=== PATIENT | male | born 1945 | race Asian ===

== ENCOUNTER 2020-04-13 10:22 | Outpatient (REF) | payer MEDICARE, SELFPAY ==
--- NOTE | 2020-04-13 10:26 | US_ITS ---
EXAMINATION: US PELVIS LIMITED (BLADDER) CLINICAL INFORMATION: Unspecified urinary incontinence. COMPARISON: Ultrasound abdomen complete 08/28/2016. TECHNIQUE: Real-time imaging of the bladder. FINDINGS: The bladder is distended symmetrically and shows no focal wall thickening, diverticulum, or bladder calculus. Prevoid bladder volume: 774 mL. Post void bladder residual volume: 179 mL. Prostate measures 3.7 x 4.1 x 5.1 cm, volume 40 mL. US/US bladder IMPRESSION: Large post void bladder residual volume 179 mL.
== END 2020-04-13 10:23 | disposition home or self-care (01) ==
LOC: HO.HMGCX 10:22
PROVIDERS: PCP Internal Medicine; Visit Provider Internal Medicine
DX: R32 Unspecified urinary incontinence (principal)
CPT/HCPCS: 76857

== ENCOUNTER 2020-05-10 14:17 | Outpatient (REF) | payer MEDICARE, SELFPAY ==
--- NOTE | 2020-05-10 14:28 | XR_ITS ---
EXAMINATION: AP BILATERAL KNEE. RIGHT KNEE 2 VIEWS. CLINICAL INFORMATION: Pain right knee. COMPARISON: None TECHNIQUE: AP bilateral knees standing. Right knee 2 views. FINDINGS: AP BILATERAL KNEE: There is loss of medial compartment joint space both knees. No periarticular spurring. No loose bodies. The soft tissues are normal. RIGHT KNEE: There is mild loss of patellofemoral compartment joint space with periarticular spurring and mild suprapatellar joint effusion. Small enthesophyte is seen along the anterior superior patella. No visible acute fracture or dislocation. XR/XR knee standing BI IMPRESSION: 1. Degenerative changes medial and patellofemoral compartment right knee and medial compartment left knee. 2. There is mild suprapatellar joint effusion right knee.
--- NOTE | 2020-05-10 14:28 | XR_ITS ---
EXAMINATION: AP BILATERAL KNEE. RIGHT KNEE 2 VIEWS. CLINICAL INFORMATION: Pain right knee. COMPARISON: None TECHNIQUE: AP bilateral knees standing. Right knee 2 views. FINDINGS: AP BILATERAL KNEE: There is loss of medial compartment joint space both knees. No periarticular spurring. No loose bodies. The soft tissues are normal. RIGHT KNEE: There is mild loss of patellofemoral compartment joint space with periarticular spurring and mild suprapatellar joint effusion. Small enthesophyte is seen along the anterior superior patella. No visible acute fracture or dislocation. XR/XR knee RT 2V IMPRESSION: 1. Degenerative changes medial and patellofemoral compartment right knee and medial compartment left knee. 2. There is mild suprapatellar joint effusion right knee.
== END 2020-05-10 14:18 | disposition home or self-care (01) ==
LOC: HO.HOSX 14:17
PROVIDERS: Visit Provider Orthopaedic Surgery
DX: M17.11 Unilateral primary osteoarthritis, right knee (principal); M25.562 Pain in left knee
CPT/HCPCS: 20610; 73560; 73565; J1040; Q3014

== ENCOUNTER → 2020-06-14 09:21 | Outpatient (BNVA) | payer MEDICARE, SELFPAY | PROVIDERS: PCP Internal Medicine; Referring Provider Internal Medicine; Visit Provider Urology | DX: N40.1 Benign prostatic hyperplasia with lower urinary tract symptoms (principal); R33.9 Retention of urine, unspecified; R39.15 Urgency of urination | CPT/HCPCS: 51798; 81002; 99202 ==

== ENCOUNTER 2020-07-12 | Outpatient (REF) | payer MEDICARE, SELFPAY | END 2020-07-12 00:01 | disposition home or self-care (01) | LOC: HO.VC | PROVIDERS: Visit Provider Internal Medicine | DX: Z23 Encounter for immunization (principal) | CPT/HCPCS: 0011A ==

== ENCOUNTER 2020-08-08 | Outpatient (REF) | payer MEDICARE, SELFPAY | END 2020-08-08 00:01 | disposition home or self-care (01) | LOC: HO.VC | PROVIDERS: Visit Provider Internal Medicine | DX: Z23 Encounter for immunization (principal) | CPT/HCPCS: 0012A ==

== ENCOUNTER → 2020-08-30 10:41 | Outpatient (BNVA) | payer MEDICARE, SELFPAY | PROVIDERS: PCP Internal Medicine; Visit Provider Orthopaedic Surgery | DX: M75.40 Impingement syndrome of unspecified shoulder (principal) | CPT/HCPCS: 20610; 99212; J1040 ==

== ENCOUNTER 2020-10-04 09:49 | Outpatient (REF) | payer MEDICARE, SELFPAY ==
--- NOTE | ~2020-10-04 | XR_ITS ---
EXAMINATION: XR SHOULDER, RIGHT CLINICAL INFORMATION: Pain COMPARISON: Previous x-ray February 2016 TECHNIQUE: Three views of the right shoulder. FINDINGS: Bone alignment is normal. No fracture or dislocation is seen. The glenohumeral joint is normal. There is arthritis at the acromioclavicular joint. Soft tissues are normal. XR/XR shoulder RT min 2V IMPRESSION: Arthritis at the acromioclavicular joint.
== END 2020-10-04 09:50 | disposition home or self-care (01) ==
LOC: HO.HOSX 09:49
PROVIDERS: PCP Internal Medicine; Visit Provider Orthopaedic Surgery
DX: M25.511 Pain in right shoulder (principal); M75.41 Impingement syndrome of right shoulder
CPT/HCPCS: 20610; 73030; 99212; J1040

== ENCOUNTER 2020-10-27 10:00 | Outpatient (RCR) | payer MEDICARE, SELFPAY ==
--- NOTE | 2020-10-20 12:06 | MHC.PT.EP ---
[facility] [place] [facility] [place] [facility] [place] [facility] [address] Steven Babcock [address] [phone] F: [phone] F: [phone] F: [phone] F: [phone] Physical Therapy Plan of Care Date of Evaluation: Date of Surgery: Diagnosis: impingement syndrome of R shoulder Assessment: 75 y/o RHD male referred to PT with impingement syndrome of R shoulder. He had a R RTC repair 08/2018 and began having R shoulder pain for one year. S/s consistent with impingement resulting in pain and difficulty with reaching overhead, reaching behind back, sleeping, and playing golf. Examination shows decreased R shoulder AROM, decreased R scapular and RTC strength, decreased GH capsular mobility, and increased tissue tension. He would like to come 1x/week for 2-3 weeks to create HEP as he has a high co-pay. He would benefit from PT to address impairments, implement HEP, and optimize functional mobility. Frequency and Duration: The patient will be seen 1x/week for 3 weeks Short Term Goals: 1 week 1. I with HEP [facility] Goals: 3 weeks 1. I with HEP and self management of sx 2. Demonstrate APley IR to T12 3. Pt will sleep through 75% of the night wiht pain < 2/10 Treatment Plan: Modalities to reduce pain, spasms and effusion. Manual therapy to restore motion and function. Therapeutic exercise to improve strength and flexibility. Neuromuscular re-education for posture and balance. Therapeutic activities to return to functional activities of daily living. Electronically signed by: Sunni Minor PT Please sign and return to therapist. Thank you for your referral.
--- NOTE | 2020-11-30 15:20 | MHC.PT.DC ---
[facility] [place] [facility] [place] [facility] [place] [facility] [address] Steven Babcock [address] [phone] F: [phone] F: [phone] F: [phone] F: [phone] Physical Therapy Discharge Report Diagnosis: impingement syndrome of R shoulder Date of Surgery: Date of Evaluation: 10/20/20 Date of Discharge: 11/30/20 Treatments to Date: 2 Cancellations to Date: 0 No Shows to Date: 0 Discharge Status: Independent with HEP Discharge Summary: From last attended visit: Mild soreness with behind the back IR stretch so educated pt regarding stretch pain verse sharp pain for hEP. He performed all exercises with minimal-no compensation and he would like to trial HEP without a f/u visit. States if he has questions, he will call or make a f/u appointment. IF we do not hear from him in 30 days, will d/c the chart. Pt in agreement. He did not f/u with further visits and therefore d/c. Electronically signed by: Sunni Minor PT Please sign and return to therapist. Thank you for your referral.
== END 2020-11-30 15:20 | disposition home or self-care (01) ==
LOC: HO.PTCHIC 10:00
PROVIDERS: PCP Internal Medicine; Visit Provider Orthopaedic Surgery
DX: M75.41 Impingement syndrome of right shoulder (principal)
CPT/HCPCS: 97110; 97161

== ENCOUNTER → 2020-11-15 10:44 | Outpatient (BNVA) | payer MEDICARE, SELFPAY | PROVIDERS: Visit Provider Orthopaedic Surgery | DX: M25.511 Pain in right shoulder (principal) | CPT/HCPCS: 99212; J1040 ==

== ENCOUNTER 2020-11-28 06:42 | Outpatient (REF) | payer MEDICARE, SELFPAY ==
[2020-11-28 11:29] LABS: MANUAL DIFF FLAG NO
[2020-11-28 11:42] LABS: Basophils Percent Auto 0.4 % (0-2); Eosinophils Absolute Auto 0.3 X10*3/uL (0.0-0.4); Eosinophils Percent Auto 4.5 % (0-4); Hematocrit 43.1 % (42-52); Hemoglobin 14.2 g/dl (14.0-18.0); Imm Gran Abs Auto 0.03 X10*3/uL (0.00-0.03); Imm Gran Pct Auto 0.4 % (0.0-0.4); Lymphocytes Absolute Auto 1.4 X10*3/uL (1.2-4.9); Lymphocytes Percent Auto 18.7 % (20-40); Mean Corpuscular HGB Conc 32.9 g/dl (31.0-36.0); Mean Corpuscular Hemoglobin 30.3 pg (27.0-33.0); Mean Corpuscular Volume 92.1 fL (80-98); Mean Platelet Volume 10.1 fL (9.4-12.4); Monocytes Absolute Auto 0.7 X10*3/uL (0.1-1.2); Monocytes Percent Auto 9.2 % (2-11); Neutrophils Absolute Auto 4.9 X10*3/uL (2.0-8.3); Neutrophils Percent Auto 66.8 % (45-73); Platelet Count 250 X10*3/uL (160-400); Red Blood Count 4.68 X10*6/uL (4.60-5.80); Red Cell Distribution Width 13.2 % (11.0-16.0); White Blood Count 7.4 X10*3/uL (4.8-10.8)
[2020-11-28 11:53] LABS: Estimated Average Glucose 148 mg/dL; Hemoglobin A1c % 6.8 %
[2020-11-28 12:05] LABS: B Type Natriuretic Peptide 16 pg/mL (<100)
[2020-11-28 12:08] LABS: Alanine Aminotransferase 77 U/L (0-40); Albumin Level 4.3 g/dL (3.5-5.0); Alkaline Phosphatase 90 U/L (39-117); Anion Gap 15 (12-20); Aspartate Amino Transferase 37 U/L (5-37); Bilirubin Total 0.5 mg/dL (0.0-1.0); Blood Urea Nitrogen 23 mg/dL (9-16); Calcium 9.6 mg/dL (8.4-10.2); Carbon Dioxide 29 mmol/L (22-29); Chloride 104 mmol/L (96-108); Cholesterol 100 mg/dL; Estimated Glomerular Filt Rate > 60; Glucose Random 153 mg/dL (60-115); HDL Cholesterol 38 mg/dL; LDL Cholesterol Calculated 47 mg/dl; Potassium 4.8 mmol/L (3.3-5.1); Sodium 143 mmol/L (135-145); Total Protein 6.6 g/dL (6.5-8.0); Triglycerides 75 mg/dL
[2020-11-28 12:14] LABS: Thyroid Stimulating Hormone 0.57 uIU/mL (0.32-4.0)
[2020-11-28 12:18] LABS: Creatinine Urine 246.01 mg/dL
[2020-11-28 12:18] LABS: Prostate Specific Antigen 2.28 ng/mL (<0.05-4.0)
[2020-11-28 12:19] LABS: Creatinine Urine 246.24 mg/dL; Microalbum/Creatinine Ratio Ur 9.7 ug/mg cr
[2020-11-28 13:42] LABS: Folate > 20.0 ng/mL (> or = 4.0); Vitamin B12 307 pg/mL (200-900)
== END 2020-11-28 06:43 | disposition home or self-care (01) ==
LOC: HO.HMGCLDS 06:42
PROVIDERS: Urology; PCP Internal Medicine; Visit Provider Internal Medicine
DX: I25.10 Atherosclerotic heart disease of native coronary artery without angina pectoris (principal); E11.65 Type 2 diabetes mellitus with hyperglycemia; E78.00 Pure hypercholesterolemia, unspecified; N40.1 Benign prostatic hyperplasia with lower urinary tract symptoms; R33.8 Other retention of urine; Z12.5 Encounter for screening for malignant neoplasm of prostate
CPT/HCPCS: 36415; 80053; 80061; 82043; 82607; 82746; 83036; 83880; 84153; 84439; 84443; 85025

== ENCOUNTER → 2020-12-19 13:23 | Outpatient (REF) | payer MEDICARE, SELFPAY ==
--- NOTE | 2020-12-19 13:48 | ECG_ITS ---
Hook-up date: 2020-12-19 13:42:00 Duration: 24:16:00 Test Indications: BRADYCARDIA Medications: 98642 QRS complexes 1310 Ventricular ectopics which represent 1 % of total QRS comp. 8 Supraventricular ectopics which represent <1 % of total QRS comp. * Paced QRS complexs which represent % of total QRS comp. VENTRICULAR ECTOPY 1237 Isolated 62 Bigeminal Cycles 33 Couplets 2 Runs 7 Beats in Runs 4 Beats LONGEST at 141 BPM at 11:05:29 2020-12-20 4 Beats FASTEST at 141 BPM at 11:05:29 2020-12-20 SUPRAVENTRICULAR ECTOPY 8 Isolated 0 Couplets 0 Runs 0 Beats in Runs * Beats LONGEST at * BPM at :: -- * Beats FASTEST at * BPM at :: -- HEART RATES 42 MIN at 00:29:45 2020-12-20 63 AVG 122 MAX at 11:28:11 2020-12-20 LONGEST RR 1.6880 secs at 05:33:18 2020-12-20 S-T LEVELS Channel 1 - 128 mm at 13:42:00 2020-12-19 - 128 mm at 13:42:00 2020-12-19 Channel 2 - 128 mm at 13:42:00 2020-12-19 - 128 mm at 13:42:00 2020-12-19 Channel 3 - 128 mm at 03:30:11 -- - 128 mm at 03:30:11 Underlying rhythm is sinus; Average ventricular rate 63/min; range 42-122/min; About 45% of the time, ventricular rate <60/min; Frequent Premature ventricular complexes (1% burden); mostly isolated; some couplets; bigeminy; runs upto 4 beats; mostly unifocal, but some variable polarity; No sustained arrhythmias; Lightheadedness in patient diary associated with sinus rhythm. Referred By: Mack Wade Overread By: PHILLIP BORDEN
== END ==
LOC: HO.CARD 13:23
PROVIDERS: PCP Internal Medicine; Visit Provider Internal Medicine
DX: R00.1 Bradycardia, unspecified (principal)
CPT/HCPCS: 93225; 93226

== ENCOUNTER → 2021-01-18 11:08 | Outpatient (BNVA) | payer MEDICARE, SELFPAY | PROVIDERS: PCP Internal Medicine; Visit Provider Urology | DX: N40.1 Benign prostatic hyperplasia with lower urinary tract symptoms (principal); R33.9 Retention of urine, unspecified; R39.15 Urgency of urination | CPT/HCPCS: 51798; 99212 ==

== ENCOUNTER 2021-05-21 09:26 | Emergency (ER) | payer MEDICARE, SELFPAY ==
--- NOTE | ~2021-05-21 | XR_ITS ---
EXAMINATION: XR CHEST CLINICAL INFORMATION: Cough COMPARISON: 08/17/2018 TECHNIQUE: Frontal view of the chest was obtained. FINDINGS: Low lung volumes. No focal consolidation or mass. Normal pulmonary vascularity. No pleural effusion or pneumothorax. Normal heart size. No acute osseous abnormality. XR/XR chest 1V IMPRESSION: Low lung volumes but no acute pulmonary disease. No significant change from prior study.
[2021-05-21 10:01] LABS: COVID-19 Test Negative (Negative); IDNOW Serial# 9DD0AD1C
[2021-05-21 11:01] VITALS: BP 140/93; PULSE 87; RESP 18; TEMP 36.7; O2SAT 98
--- NOTE | 2021-05-21 11:26 | ED_ITS ---
HPI - URI/Sore Throat General Chief Complaint: Upper Respiratory Symptoms Stated Complaint: cold/flu like symptoms, heavy cough, sob Time Seen by Provider: 05/21/21 11:13 Source: patient and family Mode of arrival: ambulatory Limitations: no limitations History of Present Illness HPI Narrative: 75-year-old male with history of asthma, osteoarthritis, BPH, hypertension, hyperlipidemia, GERD, [id number] diabetes here with reports of dry cough over the last 3 weeks worsened at nighttime. Patient is the last 3 days the cough has been worsened and keeping him from sleeping. He denies any associated shortness of breath or chest pain or leg swelling or pain. He is not on any Damion inhibitors. No fevers, chills. Patient has fully vaccinated for COVID as well as receiving a booster. Trying Robitussin cough medicine with continued symptoms Related Data Home Medications Medication Instructions Recorded Confirmed ascorbic acid (vitamin C) 500 mg mg PO 03/31/20 04/02/21 capsule cholecalciferol (vitamin D3) 25 25 mcg PO DAILY 03/31/20 04/02/21 mcg (1,000 unit) capsule multivitamin 1 tab PO DAILY 03/31/20 04/02/21 Previous Rx's Medication Instructions Recorded atorvastatin 10 mg tablet 10 mg PO DAILY #90 cap 08/22/20 diclofenac sodium 75 mg 75 mg PO BID PRN 90 Days #180 cap 11/30/20 tablet,delayed release aspirin 81 mg tablet,delayed 81 mg PO DAILY #30 tab 12/06/20 release (Adult Aspirin Regimen) metformin 500 mg tablet 500 mg .ROUTE BID 90 Days #180 tab 01/18/21 albuterol sulfate 90 mcg/actuation 2 puff INHALATION Q4-6H PRN #8.5 g 03/07/21 aerosol inhaler (ProAir HFA) tamsulosin 0.4 mg capsule 0.4 mg PO DAILY #90 cap 04/05/21 metoprolol tartrate 25 mg tablet 12.5 mg PO BID 90 Days #90 tab 04/27/21 azithromycin 250 mg tablet See Rx Instructions .ROUTE 05/21/21 .COMPLEX #6 tab hydrocodone-homatropine 5 mg-1.5 5 ml PO Q4H PRN #60 ml 05/21/21 mg/5 mL (5 mL) oral syrup (Hycodan) prednisone 20 mg tablet 40 mg PO DAILY #10 tab 05/21/21 Allergies Allergy/AdvReac Type Severity Reaction Status Date / Time lisinopril Allergy Mild cough Verified 05/21/21 11:01 losartan AdvReac Intermediate Cough Verified 05/21/21 11:01 Review of Systems Review of Systems: Yes all other systems are reviewed and are negative Constitutional: Constitutional: Reports no additional constitutional complaints, Denies body ache(s), Denies chills, Denies fever(s), Denies headache(s) and Denies weakness Eyes: Eyes: Reports no additional eye complaints and Denies change in vision ENT: Reports system reviewed and no additional complaints, except as documented, Denies dizziness, Denies headache(s), Denies nasal congestion, Denies nasal discharge and Denies neck pain Cardiovascular: Cardiovascular: Reports no additional cardiovascular complaints, Denies chest pain, Denies leg edema and Denies dyspnea Respiratory: Respiratory: Reports no additional respiratory complaints, Reports cough and Denies dyspnea Gastrointestinal: Gastrointestinal: Reports no additional gastrointestinal complaints, Denies abdominal pain, Denies diarrhea, Denies nausea and Denies vomiting Genitourinary: Genitourinary: Denies urinary incontinence Musculoskeletal: Musculoskeletal: Reports no additional musculoskeletal complaints, Denies back pain, Denies arthralgias, Denies joint swelling, Denies neck pain, Denies numbness and Denies tingling Integumentary/Breasts: Skin/Breast: Reports system reviewed and no additional complaints, except as docu and Denies rash Neurologic: Reports system reviewed and no additional complaints, except as documented, Denies Abnormal speech present, Denies dizziness, Denies headache(s), Denies numbness, Denies tingling and Denies weakness [facility] Past Medical History Attestation statement: The following information was validated with the patient. Source: old records reviewed and nursing notes reviewed Medical History Asthma Coronary artery disease Essential tremor Fatty liver GERD (gastroesophageal reflux disease) Hypercholesterolemia Hypertension Pulmonary nodule, right Type 2 diabetes mellitus with hyperglycemia Urinary incontinence Surgical History Carpal tunnel syndrome Hx of rotator cuff surgery Family History Family History Father Pancreatic cancer Mother No problems noted. Maternal Aunt Cancer Brother Cancer Social History Social History Housing: House Alcohol intake: current Patient Tobacco Use Status: Former Tobacco user Tobacco use type: Cigarette Years Smoked: quit 1979 e-Cigarette/Vaping Use: Never Used Second Hand Smoke Exposure: No Advance Directives: No Advance Directives Information Provided: No service: Yes Current occupational status: retired Current occupation: Right Handed Physical Exam Vital Signs: Vital Signs: Last Vital Signs Temp 98.1 F 05/21/21 11:01 Pulse 87 05/21/21 11:01 Resp 18 05/21/21 11:01 BP 140/93 H 05/21/21 11:01 Pulse Ox 98 05/21/21 11:01 BMI result Body Mass Index 0.3 Const: General: cooperative, healthy appearing, comfortable and no acute distress Orientation/consciousness: patient oriented x3 Limitations: no limitations HENMT: Head: Yes normal to inspection Ears: hearing grossly normal bilaterally General nose exam: Normal external nose present Face and sinus: Yes normal facial exam Mouth: Normal oral and palatal mucosa present Throat: Yes posterior oropharynx normal Eyes: General: appearance normal, both eyes and all related structures Pupils: Equal, round and reactive pupils present Neck: Neck: Yes normal visual inspection Chest: Chest palpation & inspection: normal inspection of the chest Resp: Effort & Inspection: normal respiratory effort Auscultation: clear to auscultation bilaterally Cardio: Rate: regular rate Rhythm: regular rhythm Peripheral pulses: Peripheral pulses 2+ throughout GI: Inspection: Yes normal to inspection Palpation (GI): Soft to palpation and nontender Auscultation: normal bowel sounds Back/Spine/Pelvis: Thoracic/Lumbar Spine: thoracic and lumbar spine normal to inspection Skin: General skin exam: no rashes or lesions noted Neuro: General: patient oriented x3, no focal motor deficits and normal sensation to monofilament Cranial nerves: Yes Equal, round and reactive pupils present Cognition (Neuro): normal cognition Speech: No Abnormal speech present Gait exam (Neuro): Normal gait present Motor exam (neuro): 5/5 motor strength present throughout Extrem: General: Yes normal to inspection, Yes no pedal edema and Yes no calf tenderness Course Course Course Narrative: 75-year-old male with a history of asthma . Reports dry cough for several weeks unrelieved with [id number] medications. No associated chest pain, shortness of breath, fevers or chills. Patient initially did have some runny nose and sore throat but that such resolved. His COVID screen today is negative. His chest x-ray shows no acute finding. I will send a respiratory panel on him. will call patient with results. his vitals are stable. His exam is benign. He is quite frustrated by this chronic cough that he has had and he is using his inhaler and cough medication with no relief. ? bronchiti vs asthma flare. Will treat with five days Of azithromycin and prednisone. Will give cough suppressant for home. Reviewed worrisome signs and symptoms and when to return to the emergency department. Comfortable discharge home. MDM - URI/Sore Throat Medical Records Attestation: I reviewed the patient's medical records. Lab Data Attestation: I reviewed the patient's lab results. Labs: Lab Results 05/21/21 Range/Units 09:38 COVID-19 ([facility]EREK) Negative (Negative) COVID-19 Clin Com See Note Imaging Data Chest x-ray: Attestation: I personally reviewed and interpreted this imaging study as follows: Radiologist's impression: [address] [address] XRay Report Signed Patient: Bobby Damon MR#: [id number] : 1945 Acct:[id number] Age/Sex: 75 / M ADM Date: 05/21/21 Loc: .ED Attending Dr: Ordering Physician: Isa Stuart MD Date of Service: 05/21/21 Procedure(s): XR chest 1V Accession Number(s): [id number] cc: Isa Stuart MD~ EXAMINATION: XR CHEST CLINICAL INFORMATION: Cough COMPARISON: 08/17/2018 TECHNIQUE: Frontal view of the chest was obtained. FINDINGS: Low lung volumes. No focal consolidation or mass. Normal pulmonary vascularity. No pleural effusion or pneumothorax.? Normal heart size. No acute osseous abnormality. XR/XR chest 1V IMPRESSION: Low lung volumes but no acute pulmonary disease. No significant change from prior study. Discharge Plan Discharge Clinical Impression: Acute bronchitis Patient Disposition: Home, Self-Care Instructions: Acute Bronchitis (ED) Additional Instructions: Continue inhaler Start prednisone and antibiotic today for a total of five days Cough medication as needed Follow with your PCP Your chest x-ray and covid screen. I will call you with the respiratory panel swab this afternoon Prescriptions: New azithromycin 250 mg tablet See Rx Instructions .ROUTE .COMPLEX Qty: 6 RF: 0 prednisone 20 mg tablet 40 mg PO DAILY Qty: 10 RF: 0 hydrocodone-homatropine [Hycodan] 5-1.5 mg/5 mL (5 mL) syrup 5 ml PO Q4H PRN (Reason: cough) Qty: 60 RF: 0 No Action atorvastatin 10 mg tablet 10 mg PO DAILY Qty: 90 RF: 3 diclofenac sodium 75 mg tablet,delayed release (DR/EC) 75 mg PO BID PRN (Reason: pain) 90 Days Qty: 180 RF: 3 metformin 500 mg tablet 500 mg .ROUTE BID 90 Days Qty: 180 RF: 3 albuterol sulfate [ProAir HFA] 90 mcg/actuation HFA aerosol inhaler 2 puff inhalation Q4-6H PRN (Reason: bronchospasm) Qty: 8.5 RF: 0 tamsulosin 0.4 mg capsule 0.4 mg PO DAILY Qty: 90 RF: 2 metoprolol tartrate 25 mg tablet 12.5 mg PO BID 90 Days Qty: 90 RF: 3 multivitamin Tablet 1 tab PO DAILY RF: 0 cholecalciferol (vitamin D3) 25 mcg (1,000 unit) capsule 25 mcg PO DAILY RF: 0 ascorbic acid (vitamin C) 500 mg capsule PO RF: 0 aspirin [Adult Aspirin Regimen] 81 mg tablet,delayed release (DR/EC) 81 mg PO DAILY Qty: 30 RF: 0 Referrals: Po,Mack Kenney MD [Primary Care Provider] - 2 days Interventions: ED Discharge Assessment Last Done: 05/21/21 12:02 Discharge Date/Time: 05/21/21 12:02
[2021-05-21 11:55] LABS: Adenovirus PCR Not Detected (Not Detect.); Bordetella parapertussis PCR Not Detected (Not Detect.); Bordetella pertussis PCR Not Detected (Not Detect.); Chlamydia pneumoniae PCR Not Detected (Not Detect.); Coronavirus 229E PCR Not Detected (Not Detect.); Coronavirus HKU1 PCR Not Detected (Not Detect.); Coronavirus NL63 PCR Not Detected (Not Detect.); Coronavirus OC43 PCR Not Detected (Not Detect.); Human metapneumovirus PCR Not Detected (Not Detect.); Influenza B PCR Not Detected (Not Detect.); Mycoplasma pneumoniae PCR Not Detected (Not Detect.); Parainfluenza 1 PCR Not Detected (Not Detect.); Parainfluenza 2 PCR Not Detected (Not Detect.); Parainfluenza 3 PCR Not Detected (Not Detect.); Parainfluenza 4 PCR Not Detected (Not Detect.); RSV PCR Not Detected (Not Detect.); Rhino/Enterovirus PCR Not Detected (Not Detect.); SARS-CoV-2 PCR Not Detected (Not Detect.)
[2021-05-21 13:12] LABS: Influenza A PCR Detected (Not Detect.)
== END 2021-05-21 12:02 | disposition home or self-care (01) ==
PROVIDERS: Nurse Practitioner Family; Emergency Provider Emergency Medicine; PCP Internal Medicine
DX: J20.9 Acute bronchitis, unspecified (principal); J10.1 Influenza due to other identified influenza virus with other respiratory manifestations; J45.909 Unspecified asthma, uncomplicated; I10 Essential (primary) hypertension; I25.10 Atherosclerotic heart disease of native coronary artery without angina pectoris; E11.9 Type 2 diabetes mellitus without complications; Z20.822 Contact with and (suspected) exposure to COVID-19
CPT/HCPCS: 36415; 71045; 87633; 87635; 99283; 99284

== ENCOUNTER 2021-07-04 07:51 | Outpatient (REF) | payer MEDICARE, SELFPAY ==
--- NOTE | ~2021-07-04 | US_ITS ---
EXAMINATION: ULTRASOUND PELVIS AND ULTRASOUND SCROTUM. CLINICAL INFORMATION: Right testicular pain. COMPARISON: None TECHNIQUE: Scrotum and right groin was performed FINDINGS: Right groin: Imaging to the right groin reveals no evidence of hernia, mass or abnormal lymph nodes. Scrotum: The right testes measures 3.96 x 2.11 x 2.98 cm and volume 13.0 cm. There is normal homogeneous echotexture with normal arterial and venous flow seen on Doppler exam. There is a small right hydrocele and a small varicocele. The right epididymis is normal. There is normal vascular flow seen. The left testes measures 4.09 x 1.90 2.97 cm and volume 12.1 cm. Left testes are homogeneous in echotexture. There is normal arterial and venous flow seen to left SC on Doppler exam.. There is a small left hydrocele and a prominent left varicocele. The left epididymis is normal. There are small epididymal head cyst measuring 0.83 x 0.37 x 0.39 cm and appears septated. US/US pelvic complete IMPRESSION: Bilateral hydroceles and varicoceles prominent on the left side. Left epididymal septated cyst. The testes are unremarkable with normal vascular flow. No abnormality seen in the right groin especially no hernia or lymph nodes.
--- NOTE | ~2021-07-04 | US_ITS ---
EXAMINATION: ULTRASOUND PELVIS AND ULTRASOUND SCROTUM. CLINICAL INFORMATION: Right testicular pain. COMPARISON: None TECHNIQUE: Scrotum and right groin was performed FINDINGS: Right groin: Imaging to the right groin reveals no evidence of hernia, mass or abnormal lymph nodes. Scrotum: The right testes measures 3.96 x 2.11 x 2.98 cm and volume 13.0 cm. There is normal homogeneous echotexture with normal arterial and venous flow seen on Doppler exam. There is a small right hydrocele and a small varicocele. The right epididymis is normal. There is normal vascular flow seen. The left testes measures 4.09 x 1.90 2.97 cm and volume 12.1 cm. Left testes are homogeneous in echotexture. There is normal arterial and venous flow seen to left SC on Doppler exam.. There is a small left hydrocele and a prominent left varicocele. The left epididymis is normal. There are small epididymal head cyst measuring 0.83 x 0.37 x 0.39 cm and appears septated. US/US scrotum IMPRESSION: Bilateral hydroceles and varicoceles prominent on the left side. Left epididymal septated cyst. The testes are unremarkable with normal vascular flow. No abnormality seen in the right groin especially no hernia or lymph nodes.
== END 2021-07-04 07:52 | disposition home or self-care (01) ==
LOC: HO.US 07:51
PROVIDERS: PCP Internal Medicine; Visit Provider Nurse Practitioner Family
DX: R10.31 Right lower quadrant pain (principal); N50.811 Right testicular pain; N43.3 Hydrocele, unspecified; I86.1 Scrotal varices; N50.3 Cyst of epididymis
CPT/HCPCS: 76856; 76870

== ENCOUNTER 2021-07-14 13:17 | Outpatient (REF) | payer MEDICARE, SELFPAY | END 2021-07-14 13:18 | disposition home or self-care (01) | LOC: HO.LNP 13:17 | PROVIDERS: Visit Provider Physician Assistant | DX: T14.8XXA Other injury of unspecified body region, initial encounter (principal); X58.XXXA Exposure to other specified factors, initial encounter; Y93.9 Activity, unspecified; Y92.9 Unspecified place or not applicable; Y99.8 Other external cause status | CPT/HCPCS: 87071; 87205 ==

== ENCOUNTER 2021-07-19 10:23 | Emergency (ER) | payer MEDICARE, SELFPAY ==
--- NOTE | ~2021-07-19 | XR_ITS ---
EXAMINATION: XR CHEST CLINICAL INFORMATION: Shortness of breath COMPARISON: May 21, 2021 TECHNIQUE: AP portable view of the chest was obtained. FINDINGS: No significant abnormality is noted involving the heart, lungs, mediastinum, bony thorax or soft tissues. Patient appears be status post distal right clavicle surgery. XR/XR chest 1V IMPRESSION: No acute parenchymal disease.
--- NOTE | ~2021-07-19 | CT_ITS ---
EXAMINATION: CT ANGIOGRAM OF THE CHEST WITH AND WITHOUT CONTRAST (CT PULMONARY ANGIOGRAM FOR PE) CLINICAL INFORMATION: Reason for Exam sob COMPARISON: CT of the chest of June 13, 2008 TECHNIQUE: Prior to contrast administration, noncontrast localization images were obtained. Subsequently, multidetector volumetric imaging was performed from the thoracic inlet to below the diaphragms following the administration of 65 mL Omnipaque 350 intravenous contrast. No contrast reaction reported Sagittal, coronal, and MIP oblique sagittal reformatted images were obtained on the CT workstation, uploaded to PACS, and reviewed. This CT examination was performed using dose optimization techniques as appropriate, variously including the following: *Automated exposure control *Adjustment of mA and/or kV according to patient size (this includes techniques or standardized protocols for targeted exams where dose is matched to indication/reason for exam; i.e. extremities or head) *Use of iterative reconstruction technique Total exam dose-length product 354 mGy-cm FINDINGS: QUALITY OF STUDY/CONTRAST BOLUS: Satisfactory. PULMONARY ARTERIES: No central or segmental pulmonary emboli. THORACIC AORTA: No aneurysm or dissection. LUNG: Central airways are patent. No bronchial wall thickening. No bronchiectasis. No confluent parenchymal disease. PLEURA: No pleural effusion or pneumothorax. MEDIASTINUM: Normal heart size. No pericardial effusion. No hilar or mediastinal lymphadenopathy. No evidence of septal bowing or right heart strain. There is nodularity to the inferior aspect of the thyroid gland. CHEST WALL/AXILLA: No axillary or internal mammary lymphadenopathy. OSSEOUS STRUCTURES: No acute or suspicious osseous abnormality. Old right sided healed rib fracture. DISH present. UPPER ABDOMEN: Unremarkable. No reflux of contrast into the hepatic veins to suggest elevated right heart pressures. CT/CT angio chest PE protocol IMPRESSION: No evidence of acute pulmonary artery embolus. No evidence of thoracic aortic aneurysm or dissection. Probable thyroid gland nodules. VTE: negative
[2021-07-19 10:49] VITALS: BP 111/70; PULSE 120; RESP 18; TEMP 38.7; O2SAT 93; BMI 28.9
[2021-07-19 11:09] VITALS: BP 119/79; PULSE 120; RESP 24; O2SAT 94
--- NOTE | 2021-07-19 11:12 | ED_ITS ---
HPI - URI/Sore Throat General Chief Complaint: Upper Respiratory Symptoms Stated Complaint: multiple issues Time Seen by Provider: 07/19/21 11:03 History of Present Illness HPI Narrative: Patient is a 76-year-old male with a history of bronchitis that is been ongoing for last 2 months. Positive fever positive generalized malaise positive shortness of breath. Worsen with ambulation. Patient had a full course of antibiotics in May also another course of anti biotic approximately 1 week ago. Took about 5 days with it. Still feeling short of breath. Positive fever no travel history. No abdominal pain or nausea no vomiting or diarrhea positive decreased appetite. Patient received his full course of coronavirus vaccine. Had a booster. Patient from home. Related Data Home Medications Medication Instructions Recorded Confirmed ascorbic acid (vitamin C) 500 mg mg PO 03/31/20 07/14/21 capsule cholecalciferol (vitamin D3) 25 25 mcg PO DAILY 03/31/20 07/14/21 mcg (1,000 unit) capsule multivitamin 1 tab PO DAILY 03/31/20 07/14/21 Previous Rx's Medication Instructions Recorded atorvastatin 10 mg tablet 10 mg PO DAILY #90 cap 08/22/20 diclofenac sodium 75 mg 75 mg PO BID PRN 90 Days #180 cap 11/30/20 tablet,delayed release aspirin 81 mg tablet,delayed 81 mg PO DAILY #30 tab 12/06/20 release (Adult Aspirin Regimen) metformin 500 mg tablet 500 mg .ROUTE BID 90 Days #180 tab 01/18/21 albuterol sulfate 90 mcg/actuation 2 puff INHALATION Q4-6H PRN #8.5 g 03/07/21 aerosol inhaler (ProAir HFA) tamsulosin 0.4 mg capsule 0.4 mg PO DAILY #90 cap 04/05/21 metoprolol tartrate 25 mg tablet 12.5 mg PO BID 90 Days #90 tab 04/27/21 benzonatate 100 mg capsule 100 mg PO BEDTIME PRN #10 cap 05/29/21 cephalexin 500 mg capsule 500 mg PO Q8H 7 Days #21 cap 07/14/21 mupirocin 2 % topical ointment 1 appl TOPICAL BID 15 Days #22 g 07/14/21 doxycycline hyclate 100 mg capsule 100 mg PO BID 7 Days #14 cap 07/19/21 hydrocodone-homatropine 5 mg-1.5 5 ml PO Q4-6H PRN #100 ml 07/19/21 mg/5 mL (5 mL) oral syrup (Hycodan) pantoprazole 40 mg tablet,delayed 40 mg PO DAILY #14 tab 07/19/21 release (Protonix) Allergies Allergy/AdvReac Type Severity Reaction Status Date / Time lisinopril Allergy Mild cough Verified 07/14/21 10:43 losartan AdvReac Intermediate Cough Verified 07/14/21 10:43 Review of Systems Review of Systems: Positive coughing upper respiratory symptoms Positive generalized malaise Yes all other systems are reviewed and are negative [facility] Past Medical History Attestation statement: The following information was validated with the patient. Medical History Asthma Coronary artery disease Essential tremor Fatty liver GERD (gastroesophageal reflux disease) Hypercholesterolemia Hypertension Pulmonary nodule, right Type 2 diabetes mellitus with hyperglycemia Urinary incontinence Surgical History Carpal tunnel syndrome Hx of rotator cuff surgery Family History Family History Father Pancreatic cancer Mother No problems noted. Maternal Aunt Cancer Brother Cancer Social History Social History Housing: House Alcohol intake: current Alcohol intake frequency: holidays/special occasions only Patient Tobacco Use Status: Former Tobacco user Tobacco use type: Cigarette Years Smoked: quit 1979 e-Cigarette/Vaping Use: Never Used Second Hand Smoke Exposure: No Advance Directives: Yes Advance Directives Information Provided: Yes Advance Directives on File: No service: Yes Current occupational status: retired Physical Exam Vital Signs: Vital Signs: Last Vital Signs Temp 98.2 F 07/19/21 15:26 Pulse 99 07/19/21 15:26 Resp 17 07/19/21 15:26 BP 126/73 07/19/21 15:26 Pulse Ox 95 07/19/21 15:26 BMI result Body Mass Index 28.9 Appearance: Alert. Oriented X3. No acute distress. Eyes: Pupils equal, round and reactive to light. ENT: Pharynx normal. Neck: Normal inspection. Neck supple. No lymph nodes noted. No crepitus CVS: Normal heart rate and rhythm. Pulses normal. Normal S1 and S2 Respiratory: No respiratory distress. Breath sounds normal. No Wheezing. No rales Abdomen: Soft and nontender. No rigidity. No distention. good BS x4 Skin: Skin warm and dry. Normal skin color. Normal skin turgor. Extremities: No lower extremity edema. Neurovascular intact to all extremities. No Lacerations. No Rash Neuro: Oriented X 3. No motor deficit. No sensory deficit. Moving all extermities. No slurred speech MDM - URI/Sore Throat MDM Narrative Medical decision making narrative: Patient's chest x-ray did not show any focal infiltrate. White count was elevated. Positive coughing upper respiratory symptoms that is been ongoing for 2 months. Patient's white count is 21. A CTA was done to rule out the possibility of PE. There was no evidence of PE on CTA. There is no large infiltrate. There is no pneumothorax no rib fractures. Patient well-appearing. O2 sats 96% on room air. Given patient's elevated white count cough ongoing symptoms for the last few months case discussed with the hand ironer. Will have Dr. Patino up closely follow up on an outpatient basis. Will start patient on antibiotics cough medication and omeprazole for possible reflux. Patient to be discharged home. In stable condition. Differential Diagnosis Differential diagnosis: Likely upper respiratory infection Medical Records Attestation: I reviewed the patient's medical records. Lab Data Attestation: I reviewed the patient's lab results. Result diagrams: 07/19/21 11:21 07/19/21 11:21 Labs: Lab Results 07/19/21 07/19/21 07/19/21 Range/Units 11:21 11:21 11:21 WBC 21.6 H (4.8-10.8) X10*3/uL RBC 4.94 (4.60-5.80) X10*6/uL Hgb 14.3 (14.0-18.0) g/dl Hct 43.3 (42.0-52.0) % MCV 87.7 (80.0-98.0) fL MCH 28.9 (27.0-33.0) pg MCHC 33.0 (31.0-36.0) g/dl RDW 13.1 (11.0-16.0) % Plt Count 405 H (160-400) X10*3/uL MPV 9.2 L (9.4-12.4) fL Immature Gran % (Auto) 0.8 H (0.0-0.4) % Neut % (Auto) 92.9 H (45-73) % Lymph % (Auto) 0.7 L (20-40) % Republic % (Auto) 4.6 (2-11) % Eos % (Auto) 0.7 (0-4) % Baso % (Auto) 0.3 (0-2) % Lymph # (Auto) 0.2 L (1.2-4.9) X10*3/uL Republic # (Auto) 1.0 (0.1-1.2) X10*3/uL Eos # (Auto) 0.2 (0.0-0.4) X10*3/uL Baso # (Auto) 0.1 (0.0-0.2) X10*3/uL Abs Immat Gran (auto) 0.18 H (0.00-0.03) X10*3/uL Absolute Neuts (auto) 20.0 H (2.0-8.3) x10*3/uL Absolute Nucleated RBC 0.000 (0.0-0.012) X10*3/uL Nucleated RBC % (auto) 0.0 (0.0-0.2) /100WBC Smear Tech's Comments VERIFIED Sodium 136 (135-145) mmol/L Potassium 4.0 (3.3-5.1) mmol/L Chloride 101 (96-108) mmol/L Carbon Dioxide 25 (22-29) mmol/L Anion Gap 14 (12-20) BUN 23 H (9-16) mg/dL Creatinine 1.17 (0.5-1.4) mg/dL Estim Creat Clear Calc 52.0 Estimated GFR > 60 POC Glucose (60-115) mg/dL Random Glucose 206 H (60-115) mg/dL Lactic Acid 1.7 (0.5-2.0) mmol/L Calcium 9.3 (8.4-10.2) mg/dL Total Bilirubin 0.8 (0.0-1.0) mg/dL Direct Bilirubin 0.6 H (0.0-0.5) mg/dL AST 38 H (5-37) U/L ALT 95 H (0-40) U/L Alkaline Phosphatase 96 (39-117) U/L Troponin I High Sens (<3.5-35.0) ng/L Total Protein 6.9 (6.5-8.0) g/dL Albumin 3.6 (3.5-5.0) g/dL Urine Color Urine Appearance Urine pH (5.0-8.0) Ur Specific [place] (1.005-1.025) Urine Protein (NEG-TRACE) MG/DL Urine Glucose (UA) (NEG) MG/DL Urine Ketones (NEG) MG/DL Urine Blood (NEG) Urine Nitrite (NEG) Ur Leukocyte Esterase (NEG) Urine RBC (0) /HPF Urine WBC (0-4) /HPF Ur Squamous Epith Cells /LPF Calcium Oxalate Crystal /LPF Urine Bacteria /LPF Influenza Type A (PCR) (Negative) Influenza Type B (PCR) (Negative) RSV RNA Qual (PCR) (Negative) SARS-CoV-2 RNA (RT-PCR) (Negative) 07/19/21 07/19/21 07/19/21 Range/Units 11:21 11:23 11:29 WBC (4.8-10.8) X10*3/uL RBC (4.60-5.80) X10*6/uL Hgb (14.0-18.0) g/dl Hct (42.0-52.0) % MCV (80.0-98.0) fL MCH (27.0-33.0) pg MCHC (31.0-36.0) g/dl RDW (11.0-16.0) % Plt Count (160-400) X10*3/uL MPV (9.4-12.4) fL Immature Gran % (Auto) (0.0-0.4) % Neut % (Auto) (45-73) % Lymph % (Auto) (20-40) % Republic % (Auto) (2-11) % Eos % (Auto) (0-4) % Baso % (Auto) (0-2) % Lymph # (Auto) (1.2-4.9) X10*3/uL Republic # (Auto) (0.1-1.2) X10*3/uL Eos # (Auto) (0.0-0.4) X10*3/uL Baso # (Auto) (0.0-0.2) X10*3/uL Abs Immat Gran (auto) (0.00-0.03) X10*3/uL Absolute Neuts (auto) (2.0-8.3) x10*3/uL Absolute Nucleated RBC (0.0-0.012) X10*3/uL Nucleated RBC % (auto) (0.0-0.2) /100WBC Smear Tech's Comments Sodium (135-145) mmol/L Potassium (3.3-5.1) mmol/L Chloride (96-108) mmol/L Carbon Dioxide (22-29) mmol/L Anion Gap (12-20) BUN (9-16) mg/dL Creatinine (0.5-1.4) mg/dL Estim Creat Clear Calc Estimated GFR POC Glucose 180 H (60-115) mg/dL Random Glucose (60-115) mg/dL Lactic Acid (0.5-2.0) mmol/L Calcium (8.4-10.2) mg/dL Total Bilirubin (0.0-1.0) mg/dL Direct Bilirubin (0.0-0.5) mg/dL AST (5-37) U/L ALT (0-40) U/L Alkaline Phosphatase (39-117) U/L Troponin I High Sens 12.2 (<3.5-35.0) ng/L Total Protein (6.5-8.0) g/dL Albumin (3.5-5.0) g/dL Urine Color Urine Appearance Urine pH (5.0-8.0) Ur Specific [place] (1.005-1.025) Urine Protein (NEG-TRACE) MG/DL Urine Glucose (UA) (NEG) MG/DL Urine Ketones (NEG) MG/DL Urine Blood (NEG) Urine Nitrite (NEG) Ur Leukocyte Esterase (NEG) Urine RBC (0) /HPF Urine WBC (0-4) /HPF Ur Squamous Epith Cells /LPF Calcium Oxalate Crystal /LPF Urine Bacteria /LPF Influenza Type A (PCR) NEGATIVE (Negative) Influenza Type B (PCR) NEGATIVE (Negative) RSV RNA Qual (PCR) NEGATIVE (Negative) SARS-CoV-2 RNA (RT-PCR) NEGATIVE (Negative) 07/19/21 Range/Units 15:02 WBC (4.8-10.8) X10*3/uL RBC (4.60-5.80) X10*6/uL Hgb (14.0-18.0) g/dl Hct (42.0-52.0) % MCV (80.0-98.0) fL MCH (27.0-33.0) pg MCHC (31.0-36.0) g/dl RDW (11.0-16.0) % Plt Count (160-400) X10*3/uL MPV (9.4-12.4) fL Immature Gran % (Auto) (0.0-0.4) % Neut % (Auto) (45-73) % Lymph % (Auto) (20-40) % Republic % (Auto) (2-11) % Eos % (Auto) (0-4) % Baso % (Auto) (0-2) % Lymph # (Auto) (1.2-4.9) X10*3/uL Republic # (Auto) (0.1-1.2) X10*3/uL Eos # (Auto) (0.0-0.4) X10*3/uL Baso # (Auto) (0.0-0.2) X10*3/uL Abs Immat Gran (auto) (0.00-0.03) X10*3/uL Absolute Neuts (auto) (2.0-8.3) x10*3/uL Absolute Nucleated RBC (0.0-0.012) X10*3/uL Nucleated RBC % (auto) (0.0-0.2) /100WBC Smear Tech's Comments Sodium (135-145) mmol/L Potassium (3.3-5.1) mmol/L Chloride (96-108) mmol/L Carbon Dioxide (22-29) mmol/L Anion Gap (12-20) BUN (9-16) mg/dL Creatinine (0.5-1.4) mg/dL Estim Creat Clear Calc Estimated GFR POC Glucose (60-115) mg/dL Random Glucose (60-115) mg/dL Lactic Acid (0.5-2.0) mmol/L Calcium (8.4-10.2) mg/dL Total Bilirubin (0.0-1.0) mg/dL Direct Bilirubin (0.0-0.5) mg/dL AST (5-37) U/L ALT (0-40) U/L Alkaline Phosphatase (39-117) U/L Troponin I High Sens (<3.5-35.0) ng/L Total Protein (6.5-8.0) g/dL Albumin (3.5-5.0) g/dL Urine Color YELLOW Urine Appearance CLEAR Urine pH 5.5 (5.0-8.0) Ur Specific [place] <= 1.005 (1.005-1.025) Urine Protein NEG (NEG-TRACE) MG/DL Urine Glucose (UA) NEG (NEG) MG/DL Urine Ketones 5 (NEG) MG/DL Urine Blood NEG (NEG) Urine Nitrite NEG (NEG) Ur Leukocyte Esterase NEG (NEG) Urine RBC 0-2 (0) /HPF Urine WBC 0-2 (0-4) /HPF Ur Squamous Epith Cells NONE /LPF Calcium Oxalate Crystal TRACE /LPF Urine Bacteria NONE /LPF Influenza Type A (PCR) (Negative) Influenza Type B (PCR) (Negative) RSV RNA Qual (PCR) (Negative) SARS-CoV-2 RNA (RT-PCR) (Negative) Discharge Plan Discharge Clinical Impression: Upper respiratory infection Patient Disposition: Home, Self-Care Instructions: Upper Respiratory Infection (DC), Acute Bronchitis (ED) Prescriptions: New doxycycline hyclate 100 mg capsule 100 mg PO BID 7 Days Qty: 14 0RF pantoprazole [Protonix] 40 mg tablet,delayed release (DR/EC) 40 mg PO DAILY Qty: 14 0RF hydrocodone-homatropine [Hycodan] 5-1.5 mg/5 mL (5 mL) syrup 5 ml PO Q4-6H PRN (Reason: cough) Qty: 100 0RF No Action atorvastatin 10 mg tablet 10 mg PO DAILY Qty: 90 3RF diclofenac sodium 75 mg tablet,delayed release (DR/EC) 75 mg PO BID PRN (Reason: pain) 90 Days Qty: 180 3RF metformin 500 mg tablet 500 mg .ROUTE BID 90 Days Qty: 180 3RF Rx Instructions: 500 mg 2 times a day; albuterol sulfate [ProAir HFA] 90 mcg/actuation HFA aerosol inhaler 2 puff inhalation Q4-6H PRN (Reason: bronchospasm) Qty: 8.5 0RF tamsulosin 0.4 mg capsule 0.4 mg PO DAILY Qty: 90 2RF metoprolol tartrate 25 mg tablet 12.5 mg PO BID 90 Days Qty: 90 3RF multivitamin Tablet 1 tab PO DAILY 0RF cholecalciferol (vitamin D3) 25 mcg (1,000 unit) capsule 25 mcg PO DAILY 0RF ascorbic acid (vitamin C) 500 mg capsule PO 0RF aspirin [Adult Aspirin Regimen] 81 mg tablet,delayed release (DR/EC) 81 mg PO DAILY Qty: 30 0RF benzonatate 100 mg capsule 100 mg PO BEDTIME PRN (Reason: cough) Qty: 10 0RF mupirocin 2 % ointment 1 appl topical BID 15 Days Qty: 22 0RF cephalexin 500 mg capsule 500 mg PO Q8H 7 Days Qty: 21 0RF Referrals: Selvin Patino MD [Physician] - 2 days
--- NOTE | 2021-07-19 11:12 | ECG_ITS ---
Test Reason : UPPER RESPIRATORY Blood Pressure : / mmHG Vent. Rate : 116 BPM Atrial Rate : 116 BPM P-R Int : 124 ms QRS Dur : 094 ms QT Int : 320 ms P-R-T Axes : 039 013 035 degrees QTc Int : 444 ms Sinus tachycardia with occasional Premature ventricular complexes and Fusion complexes Otherwise normal ECG When compared with ECG of 17-AUG-2018 12:37, Fusion complexes are now Present Premature ventricular complexes are now Present Vent. rate has increased BY 44 BPM Referred By: Christine Jacobson Electronically Signed By:Keith Elizabeth
[2021-07-19] MEDS: Acetaminophen 325 MG TABLET 650 MG PO (11:32)
[2021-07-19 11:33] LABS: Glucose, Whole Blood 180 mg/dL (60-115)
[2021-07-19] MEDS: 0.9 % Sodium Chloride 500 ML 999 ML IV (11:33)
[2021-07-19 11:38] LABS: Basophils Absolute Auto 0.1 X10*3/uL (0.0-0.2); Basophils Percent Auto 0.3 % (0-2); Eosinophils Absolute Auto 0.2 X10*3/uL (0.0-0.4); Eosinophils Percent Auto 0.7 % (0-4); Hematocrit 43.3 % (42.0-52.0); Hemoglobin 14.3 g/dl (14.0-18.0); Imm Gran Abs Auto 0.18 X10*3/uL (0.00-0.03); Imm Gran Pct Auto 0.8 % (0.0-0.4); Lymphocytes Absolute Auto 0.2 X10*3/uL (1.2-4.9); Lymphocytes Percent Auto 0.7 % (20-40); MANUAL DIFF FLAG SCAN; Mean Corpuscular Hemoglobin 28.9 pg (27.0-33.0); Mean Corpuscular Volume 87.7 fL (80.0-98.0); Mean Platelet Volume 9.2 fL (9.4-12.4); Monocytes Percent Auto 4.6 % (2-11); Neutrophils Percent Auto 92.9 % (45-73); Platelet Count 405 X10*3/uL (160-400); Red Blood Count 4.94 X10*6/uL (4.60-5.80); Red Cell Distribution Width 13.1 % (11.0-16.0); SCAN SMEAR FLAG 1; White Blood Count 21.6 X10*3/uL (4.8-10.8)
[2021-07-19 11:47] LABS: Lactic Acid 1.7 mmol/L (0.5-2.0)
[2021-07-19 11:52] LABS: Alanine Aminotransferase 95 U/L (0-40); Albumin Level 3.6 g/dL (3.5-5.0); Alkaline Phosphatase 96 U/L (39-117); Anion Gap 14 (12-20); Aspartate Amino Transferase 38 U/L (5-37); Bilirubin Direct 0.6 mg/dL (0.0-0.5); Bilirubin Total 0.8 mg/dL (0.0-1.0); Blood Urea Nitrogen 23 mg/dL (9-16); Calcium 9.3 mg/dL (8.4-10.2); Carbon Dioxide 25 mmol/L (22-29); Chloride 101 mmol/L (96-108); Estimated Glomerular Filt Rate > 60; Glucose Random 206 mg/dL (60-115); Sodium 136 mmol/L (135-145); Total Protein 6.9 g/dL (6.5-8.0)
[2021-07-19 11:58] LABS: Troponin-I High Sensitivity 12.2 ng/L (<3.5-35.0)
[2021-07-19 12:00] VITALS: BP 107/69; PULSE 97; RESP 16; O2SAT 98
[2021-07-19 12:06] LABS: SLIDE REVIEW VERIFIED
[2021-07-19 12:16] LABS: Influenza A PCR NEGATIVE (Negative); Influenza B PCR NEGATIVE (Negative); Resp Syncy Virus RNA Qual PCR NEGATIVE (Negative); SARS COV2 PCR INHOUSE NEGATIVE (Negative)
[2021-07-19] MEDS: iohexoL 350 MG/ML 100 ML INFUS..BTL IV (12:59)
[2021-07-19 15:26] VITALS: BP 126/73; PULSE 99; RESP 17; TEMP 36.8; O2SAT 95
[2021-07-19 15:31] LABS: Appearance Urine CLEAR; Color Urine YELLOW; Glucose Urine UA NEG (NEG); Leukocyte Esterase Urine NEG (NEG); Nitrite Urine NEG (NEG); PH 5.5 (5.0-8.0); Specific Gravity - Urine <= 1.005 (1.005-1.025); Urine Blood NEG (NEG); Urine Ketones 5 MG/DL (NEG); Urine Protein NEG (NEG-TRACE)
[2021-07-19 15:41] LABS: RBC Urine 0-2 /HPF (0); WBC Urine 0-2 /HPF (0-4)
[2021-07-19 15:42] LABS: Calcium Oxalate Crystals Urine TRACE /LPF
== END 2021-07-19 16:41 | disposition home or self-care (01) ==
PROVIDERS: Emergency Provider Emergency Medicine Emergency Medical Services; PCP Internal Medicine
DX: J06.9 Acute upper respiratory infection, unspecified (principal); R06.02 Shortness of breath; R50.9 Fever, unspecified; F17.210 Nicotine dependence, cigarettes, uncomplicated; Z71.6 Tobacco abuse counseling; Z20.822 Contact with and (suspected) exposure to COVID-19; Z79.899 Other long term (current) drug therapy
CPT/HCPCS: 0241U; 36415; 71045; 71275; 80048; 80076; 81001; 82947; 83605; 84484; 85025; 87040; 93005; 99284; Q9967

== ENCOUNTER → 2021-07-25 15:01 | Outpatient (BNVA) | payer MEDICARE, SELFPAY | PROVIDERS: PCP Internal Medicine; Visit Provider Internal Medicine Pulmonary Disease | DX: R05.8 Other specified cough (principal) | CPT/HCPCS: 99202 ==

== ENCOUNTER 2021-10-05 10:08 | Outpatient (REF) | payer MEDICARE, SELFPAY ==
--- NOTE | ~2021-10-05 | US_ITS ---
EXAMINATION: US THYROID CLINICAL INFORMATION: Nontoxic single thyroid nodule. COMPARISON: CTA chest 07/19/2021. Thyroid ultrasound 10/10/2015. TECHNIQUE: Linear transducer grayscale and color Doppler examination with attention to the region of the thyroid. FINDINGS: SIZE: Measurements of the thyroid lobes and nodules are given in sagittal, anteroposterior and transverse dimensions respectively. Right Thyroid Lobe: 3.9 x 2.6 x 1.8 cm, volume 9.9 mL. Previously 4.2 x 2.4 x 2.0 cm, volume 10.7 mL. Parenchyma: The gland echotexture is homogeneous. Thyroid vascularity is normal. Left Thyroid Lobe: 4.8 x 2.8 x 2.0 cm, volume 14.3 mL. Previously 4.5 x 2.3 x 1.9 cm, volume 10.1 mL. Parenchyma: The gland echotexture is homogeneous. Thyroid vascularity is now. Isthmus: 0.8 cm in maximum AP dimension. Previously 0.6 cm. Estimated total number of nodules greater than or equal to 1 cm: 1. Legislative Correspondent nodules are described as follows: 1. Location: Right lower pole. Size: 0.7 x 0.4 x 0.8 cm, volume 0.12 mL. Previously: 0.5 x 0.3 x 0.5 cm, volume 0.04 mL. Nodule characteristics: Composition: Spongiform (0). ACR TI-RADS total points: 0 ACR TI-RADS category: 1 Significant change in size (>/= 20% in 2 dimensions and minimal increase of 2 mm or 50% or greater increase in volume): Yes Change in features: No Change in ACR TI-RADS risk category: No 2. Location: Right mid pole. Size: 0.3 x 0.3 x 0.3 cm, volume 0.01 mL. Previously: Not documented. Nodule characteristics: Composition: Spongiform (0). ACR TI-RADS total points: 0 ACR TI-RADS category: 1 3. Location: Left mid pole. Size: 1.4 x 1.3 x 1.2 cm, volume 1.1 mL. Previously: 2.1 x 1.4 x 1.5 cm, volume 2.3 mL. Nodule characteristics: Composition: Mixed cystic and solid (1). Echogenicity: Hypoechoic (2). Shape: Taller than wide (3). Margins: Smooth (0). Echogenic Foci: Punctate echogenic foci (3). ACR TI-RADS total points: 9 ACR TI-RADS category: 5 Significant change in size (>/= 20% in 2 dimensions and minimal increase of 2 mm or 50% or greater increase in volume): No Change in features: Increased heterogeneity with calcifications. Change in ACR TI-RADS risk category: No 4. Location: Left lower pole. Size: 0.6 x 0.5 x 0.5 cm, volume 0.08 mL. Previously: Not documented. Nodule characteristics: Composition: Mixed cystic and solid (1). Echogenicity: Hypoechoic (2). Shape: Not taller than wide (0). Margins: Smooth (0). Echogenic Foci: Peripheral calcifications (2). ACR TI-RADS total points: 5 ACR TI-RADS category: 4 Previous NODES: No lymphadenopathy is seen in the tissue surrounding the thyroid gland. US/US thyroid IMPRESSION: Multinodular thyroid gland. Nodule 3 is the largest measuring up to 1.4 cm. Based on the size and appearance, fine needle aspiration would be appropriate if not previously performed. That said, this nodule has decreased in size from previous. Remaining nodules do not require follow-up. ACR TI-RADS RECOMMENDATION REFERENCE: Ultrasound-guided fine-needle aspiration, followup ultrasound, no further follow up. * TR1 (0 point) and TR 2 (2 points): No FNA or follow up * TR3 (3 points): FNA if more than or equal to 2.5 cm in maximum dimension, followup ultrasound in 1, 3 and 5 years if 1.5 to 2.4 cm in maximum dimension. * TR4 (4-6 points): FNA if more than or equal to 1.5 cm in maximum dimension, followup ultrasound in 1, 2, 3 and 5 years if 1 to 1.4 cm in maximum dimension. * TR5 (more than or equal to 7 points): FNA if more than or equal to 1 cm in maximum dimension, followup ultrasound every year for 5 years if 0.5 to 0.9 cm in maximum dimension. * TR3, TR4 or TR5 nodules that are below the size threshold for follow up receive no follow up.
== END 2021-10-05 10:09 | disposition home or self-care (01) ==
LOC: HO.HMGCX 10:08
PROVIDERS: Visit Provider Internal Medicine
DX: E04.1 Nontoxic single thyroid nodule (principal)
CPT/HCPCS: 76536

== ENCOUNTER → 2021-10-11 09:31 | Outpatient (BNVA) | payer MEDICARE, SELFPAY | PROVIDERS: PCP Internal Medicine; Visit Provider Orthopaedic Surgery | DX: M75.42 Impingement syndrome of left shoulder (principal) | CPT/HCPCS: 20610; 99212; J1100 ==

== ENCOUNTER 2022-01-31 09:00 | Outpatient (REF) | payer MEDICARE, SELFPAY ==
--- NOTE | ~2022-01-31 | XR_ITS ---
EXAMINATION: XR SHOULDER, LEFT CLINICAL INFORMATION: Pain. COMPARISON: Radiographs dated 06/29/2019. TECHNIQUE: AP external rotation, Grashey, scapular Y, and axillary views of the left shoulder. FINDINGS: Bony alignment and mineralization are normal. The glenohumeral joint is intact and shows mild osteoarthritic change. The acromioclavicular and coracoclavicular intervals are normal. There is marked osteoarthritic change of the acromioclavicular joint. There is a distal acromial undersurface osteophyte. There is cortical irregularity of the greater tuberosity of the proximal left humerus. No fracture or dislocation is seen. There is no soft tissue calcification or foreign body. No left pneumothorax is seen. XR/XR shoulder LT min 2V IMPRESSION: 1. No fracture or dislocation is seen. 2. 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 3. Findings suggest left rotator cuff impingement.
== END 2022-01-31 09:01 | disposition home or self-care (01) ==
LOC: HO.HOSX 09:00
PROVIDERS: Visit Provider Orthopaedic Surgery
DX: M75.42 Impingement syndrome of left shoulder (principal); E11.65 Type 2 diabetes mellitus with hyperglycemia
CPT/HCPCS: 20610; 73030; 99212; J1100

== ENCOUNTER 2022-02-06 07:50 | Outpatient (REF) | payer MEDICARE, SELFPAY ==
[2022-02-06 11:05] LABS: MANUAL DIFF FLAG NO
[2022-02-06 11:15] LABS: Basophils Absolute Auto 0.1 X10*3/uL (0.0-0.2); Basophils Percent Auto 0.8 % (0-2); Eosinophils Absolute Auto 0.3 X10*3/uL (0.0-0.4); Hematocrit 42.4 % (42.0-52.0); Hemoglobin 14.1 g/dl (14.0-18.0); Imm Gran Abs Auto 0.05 X10*3/uL (0.00-0.03); Imm Gran Pct Auto 0.8 % (0.0-0.4); Lymphocytes Absolute Auto 1.3 X10*3/uL (1.2-4.9); Lymphocytes Percent Auto 20.2 % (20-40); Mean Corpuscular HGB Conc 33.3 g/dl (31.0-36.0); Mean Corpuscular Hemoglobin 29.6 pg (27.0-33.0); Mean Corpuscular Volume 89.1 fL (80.0-98.0); Mean Platelet Volume 9.9 fL (9.4-12.4); Monocytes Absolute Auto 0.6 X10*3/uL (0.1-1.2); Monocytes Percent Auto 9.7 % (2-11); Neutrophils Absolute Auto 4.2 x10*3/uL (2.0-8.3); Neutrophils Percent Auto 63.5 % (45-73); Platelet Count 237 X10*3/uL (160-400); Red Blood Count 4.76 X10*6/uL (4.60-5.80); Red Cell Distribution Width 13.2 % (11.0-16.0); White Blood Count 6.6 X10*3/uL (4.8-10.8)
[2022-02-06 11:26] LABS: Estimated Average Glucose 131 mg/dL; Hemoglobin A1c % 6.2 %
[2022-02-06 11:49] LABS: Alanine Aminotransferase 57 U/L (0-40); Albumin Level 4.1 g/dL (3.5-5.0); Alkaline Phosphatase 75 U/L (39-117); Anion Gap 15 (12-20); Aspartate Amino Transferase 23 U/L (5-37); Bilirubin Total 0.4 mg/dL (0.0-1.0); Blood Urea Nitrogen 17 mg/dL (9-16); Calcium 8.9 mg/dL (8.4-10.2); Carbon Dioxide 26 mmol/L (22-29); Chloride 105 mmol/L (96-108); Cholesterol 101 mg/dL; Estimated Glomerular Filt Rate 57; Glucose Random 152 mg/dL (60-115); HDL Cholesterol 41 mg/dL; LDL Cholesterol Calculated 45 mg/dl; Potassium 4.2 mmol/L (3.3-5.1); Sodium 142 mmol/L (135-145); Total Protein 6.7 g/dL (6.5-8.0); Triglycerides 75 mg/dL
[2022-02-06 11:52] LABS: Free T4 (Free Thyroxine) 1.26 ng/dL (0.71-1.85); Thyroid Stimulating Hormone 0.73 uIU/mL (0.32-4.0)
[2022-02-06 12:06] LABS: Creatinine Urine 139.24 mg/dL; Microalbum/Creatinine Ratio Ur 321.7 ug/mg cr
[2022-02-06 12:12] LABS: Creatinine Urine 131.29 mg/dL
[2022-02-06 12:53] LABS: Folate > 20.0 ng/mL (> or = 4.0); Vitamin B12 281 pg/mL (200-900)
== END 2022-02-06 07:51 | disposition home or self-care (01) ==
LOC: HO.HMGCLDS 07:50
PROVIDERS: PCP Internal Medicine; Visit Provider Internal Medicine
DX: E11.65 Type 2 diabetes mellitus with hyperglycemia (principal); E78.00 Pure hypercholesterolemia, unspecified
CPT/HCPCS: 36415; 80053; 80061; 82043; 82607; 82746; 83036; 84439; 84443; 85025

== ENCOUNTER 2022-03-26 10:00 | Outpatient (RCR) | payer MEDICARE, SELFPAY ==
--- NOTE | 2022-02-19 10:49 | MHC.PT.EP ---
[facility] [place] Office [place] Office [place] Office [address] [phone] F: [phone] F: [phone] F: [phone] F: [phone] Physical Therapy Plan of Care Date of Evaluation: Date of Surgery: Diagnosis: L rotator cuff impingement Assessment: Patient is a 76 year old R handed male who presents with s/s consistent with L shoulder impingement, pain. 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 He also likes to golf. Patient past medical history includes DM and R rotator cuff surgery as well as back pain. Current impairments include pain, posture, ROM, strength, activity tolerance and functional mobility. Functional limitations include decreased ability to sleep, reach, golf, carry and lift. Patient is motivated with good rehab potential. Skilled PT will address impairments and functional limitations in order to achieve goals. Frequency and Duration: The patient will be seen 2x/week for 5 weeks Short Term Goals: I with HEP - 2 weeks AROM flexion and abd 150 pain free - 3 weeks Half-Way Goals: Able to sleep pain free - 5 weeks SPADI 30/130 or less - 5 weeks Strength 4/5 grossly ER 60, IR 60 - 5 weeks Treatment Plan: Modalities to reduce pain, spasms and effusion. Manual therapy to restore motion and function. Therapeutic exercise to improve strength and flexibility. Neuromuscular re-education for posture and balance. Therapeutic activities to return to functional activities of daily living. Electronically signed by: Colin Rock, PT Please sign and return to therapist. Thank you for your referral.
--- NOTE | 2022-05-22 08:30 | MHC.PT.DC ---
[facility] [place] Office [place] Office Opp Office [address] [phone] F: [phone] F: [phone] F: [phone] F: [phone] Physical Therapy Discharge Report Diagnosis: L rotator cuff impingement Date of Surgery: Date of Evaluation: 02/19/22 Date of Discharge: 05/22/22 Treatments to Date: 5 Cancellations to Date: No Shows to Date: Discharge Status: Improved Function Independent with HEP Discharge Summary: 03/26/22: pt progressed well over the course of skilled PT. He has updated HEP And all necessary bands. His SPADI improved to 39/130. Able to sleep pain free. Strength is 4/5 grossly. ER to 72. IR to 61. Appropriate to d/c to HEP at this time. 03/19; Pt reported no pain with exs. Pt has 1 remaining visits , at which he feels is good for DC 10/4; Pt c/o sh abd most soreness. Pt fatigued after es. 02/26/22: pt progressed with strength and ROM. assess response and update HEP NV. Patient is a 76 year old R handed male who presents with s/s consistent with L shoulder impingement, pain. 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 He also likes to golf. Patient past medical history includes DM and R rotator cuff surgery as well as back pain. Current impairments include pain, posture, ROM, strength, activity tolerance and functional mobility. Functional limitations include decreased ability to sleep, reach, golf, carry and lift. Patient is motivated with good rehab potential. Skilled PT will address impairments and functional limitations in order to achieve goals. Electronically signed by: Colin Rock, PT Please sign and return to therapist. Thank you for your referral.
== END 2022-05-22 08:31 | disposition home or self-care (01) ==
LOC: HO.PTCHIC 10:00
PROVIDERS: PCP Internal Medicine; Visit Provider Orthopaedic Surgery
DX: M75.42 Impingement syndrome of left shoulder (principal)
CPT/HCPCS: 97110; 97162

== ENCOUNTER 2022-04-19 14:43 | Outpatient (REF) | payer MEDICARE, SELFPAY ==
--- NOTE | ~2022-04-19 | XR_ITS ---
EXAMINATION: XR CHEST CLINICAL INFORMATION: Acute bronchitis. COMPARISON: 07/19/2021 chest radiograph. TECHNIQUE: 2 views of the chest were obtained. FINDINGS: No significant abnormality is noted involving the heart, lungs, mediastinum, bony thorax or soft tissues. XR/XR chest 2V IMPRESSION: No acute cardiopulmonary process.
== END 2022-04-19 14:44 | disposition home or self-care (01) ==
LOC: HO.XRAY 14:43
PROVIDERS: PCP Internal Medicine; Visit Provider Physician Assistant
DX: J20.9 Acute bronchitis, unspecified (principal)
CPT/HCPCS: 71046

== ENCOUNTER → 2022-05-29 10:22 | Outpatient (BNVA) | payer MEDICARE, SELFPAY | PROVIDERS: PCP Internal Medicine; Visit Provider Internal Medicine Endocrinology, Diabetes & Metabolism | DX: E04.1 Nontoxic single thyroid nodule (principal) | CPT/HCPCS: 99202 ==

== ENCOUNTER 2022-06-04 09:25 | Outpatient (REF) | payer MEDICARE, SELFPAY ==
[2022-06-04 11:13] LABS: MANUAL DIFF FLAG NO
[2022-06-04 11:49] LABS: Basophils Absolute Auto 0.1 X10*3/uL (0.0-0.2); Basophils Percent Auto 0.5 % (0-2); Eosinophils Absolute Auto 0.3 X10*3/uL (0.0-0.4); Eosinophils Percent Auto 3.3 % (0-4); Hematocrit 42.3 % (42.0-52.0); Hemoglobin 14.2 g/dl (14.0-18.0); Imm Gran Abs Auto 0.05 X10*3/uL (0.00-0.03); Imm Gran Pct Auto 0.5 % (0.0-0.4); Lymphocytes Absolute Auto 1.4 X10*3/uL (1.2-4.9); Lymphocytes Percent Auto 14.5 % (20-40); Mean Corpuscular HGB Conc 33.6 g/dl (31.0-36.0); Mean Corpuscular Hemoglobin 29.6 pg (27.0-33.0); Mean Corpuscular Volume 88.3 fL (80.0-98.0); Mean Platelet Volume 10.1 fL (9.4-12.4); Monocytes Absolute Auto 0.7 X10*3/uL (0.1-1.2); Monocytes Percent Auto 7.5 % (2-11); Neutrophils Percent Auto 73.7 % (45-73); Platelet Count 247 X10*3/uL (160-400); Red Blood Count 4.79 X10*6/uL (4.60-5.80); Red Cell Distribution Width 12.8 % (11.0-16.0); White Blood Count 9.5 X10*3/uL (4.8-10.8)
[2022-06-04 11:52] LABS: B Type Natriuretic Peptide 19 pg/mL (<100)
[2022-06-04 11:54] LABS: Alanine Aminotransferase 57 U/L (0-40); Albumin Level 4.2 g/dL (3.5-5.0); Alkaline Phosphatase 86 U/L (39-117); Anion Gap 12 (12-20); Aspartate Amino Transferase 21 U/L (5-37); Bilirubin Total 0.6 mg/dL (0.0-1.0); Blood Urea Nitrogen 17 mg/dL (9-16); Calcium 9.3 mg/dL (8.4-10.2); Carbon Dioxide 27 mmol/L (22-29); Chloride 104 mmol/L (96-108); Estimated Glomerular Filt Rate 57; Glucose Random 244 mg/dL (60-115); Potassium 4.2 mmol/L (3.3-5.1); Sodium 139 mmol/L (135-145); Total Protein 6.7 g/dL (6.5-8.0)
== END 2022-06-04 09:26 | disposition home or self-care (01) ==
LOC: HO.HMGCLDS 09:25
PROVIDERS: PCP Internal Medicine; Visit Provider Internal Medicine
DX: R05.3 Chronic cough (principal)
CPT/HCPCS: 36415; 80053; 83880; 85025

== ENCOUNTER → 2022-07-19 10:56 | Outpatient (BNVA) | payer MEDICARE, SELFPAY | PROVIDERS: PCP Internal Medicine; Visit Provider Orthopaedic Surgery | DX: M75.42 Impingement syndrome of left shoulder (principal); E11.65 Type 2 diabetes mellitus with hyperglycemia; I10 Essential (primary) hypertension | CPT/HCPCS: 20610; 99212; J1100 ==

== ENCOUNTER 2023-01-10 08:18 | Outpatient (REF) | payer MEDICARE, SELFPAY ==
[2023-01-10 11:17] LABS: MANUAL DIFF FLAG NO
[2023-01-10 11:44] LABS: Basophils Absolute Auto 0.1 X10*3/uL (0.0-0.2); Basophils Percent Auto 0.7 % (0-2); Eosinophils Absolute Auto 0.6 X10*3/uL (0.0-0.4); Eosinophils Percent Auto 6.5 % (0-4); Hematocrit 45.9 % (42.0-52.0); Hemoglobin 14.8 g/dl (14.0-18.0); Imm Gran Abs Auto 0.08 X10*3/uL (0.00-0.03); Imm Gran Pct Auto 0.9 % (0.0-0.4); Lymphocytes Absolute Auto 2.1 X10*3/uL (1.2-4.9); Lymphocytes Percent Auto 23.1 % (20-40); Mean Corpuscular HGB Conc 32.2 g/dl (31.0-36.0); Mean Corpuscular Hemoglobin 29.5 pg (27.0-33.0); Mean Corpuscular Volume 91.6 fL (80.0-98.0); Mean Platelet Volume 10.2 fL (9.4-12.4); Monocytes Absolute Auto 0.6 X10*3/uL (0.1-1.2); Monocytes Percent Auto 6.9 % (2-11); Neutrophils Absolute Auto 5.5 x10*3/uL (2.0-8.3); Neutrophils Percent Auto 61.9 % (45-73); Platelet Count 266 X10*3/uL (160-400); Red Blood Count 5.01 X10*6/uL (4.60-5.80); Red Cell Distribution Width 12.6 % (11.0-16.0); White Blood Count 8.9 X10*3/uL (4.8-10.8)
[2023-01-10 12:58] LABS: B Type Natriuretic Peptide 23 pg/mL (<100)
[2023-01-10 13:44] LABS: Estimated Average Glucose 143 mg/dL; Hemoglobin A1c % 6.6 %
[2023-01-10 15:35] LABS: Alanine Aminotransferase 66 U/L (0-40); Albumin Level 4.3 g/dL (3.5-5.0); Alkaline Phosphatase 93 U/L (39-117); Anion Gap 16 (12-20); Aspartate Amino Transferase 33 U/L (5-37); Bilirubin Total 0.5 mg/dL (0.0-1.0); Blood Urea Nitrogen 16 mg/dL (9-16); Calcium 9.6 mg/dL (8.4-10.2); Carbon Dioxide 25 mmol/L (22-29); Chloride 104 mmol/L (96-108); Cholesterol 108 mg/dL; Estimated Glomerular Filt Rate > 60; Free T4 (Free Thyroxine) 0.99 ng/dL (0.71-1.85); Glucose Random 177 mg/dL (60-115); HDL Cholesterol 35 mg/dL; LDL Cholesterol Calculated 42 mg/dl; Potassium 4.3 mmol/L (3.3-5.1); Sodium 141 mmol/L (135-145); Thyroid Stimulating Hormone 1.17 uIU/mL (0.32-4.0); Total Protein 7.2 g/dL (6.5-8.0); Triglycerides 159 mg/dL
[2023-01-10 15:45] LABS: Folate 17.8 ng/mL (> or = 4.0); Vitamin B12 394 pg/mL (200-900)
== END 2023-01-10 08:19 | disposition home or self-care (01) ==
LOC: HO.HMGCLDS 08:18
PROVIDERS: PCP Internal Medicine; Visit Provider Internal Medicine
DX: E11.65 Type 2 diabetes mellitus with hyperglycemia (principal); E78.00 Pure hypercholesterolemia, unspecified
CPT/HCPCS: 36415; 80053; 80061; 82607; 82746; 83036; 83880; 84439; 84443; 85025

== ENCOUNTER 2023-04-11 10:05 | Outpatient (AMB) | payer MEDICARE, SELFPAY ==
--- NOTE | 2023-04-11 10:18 | MHC.PC.OV ---
Vital Signs 04/11/23 10:19 Height 5 ft 4 in Weight 179 lb 6 oz BMI 30.8 BP 142/78 H Blood Pressure Location Lt brachial Position Sitting Pulse 58 Pulse Source Pulse Oximeter Pulse Oximetry (%) 97 Oxygen Delivery Method Room Air Intake Visit Reasons: Annual Physical Intake Note: Patient is here today for a physical. 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 Required: No Accompanied by: Self / Same As Patient Allergies lisinopril Allergy (Mild, Verified 04/11/23 10:33) cough losartan Adverse Reaction (Intermediate, Verified 04/11/23 10:33) Cough Medication List - Last Reconciled 04/11/23 by Mack Wade MD albuterol sulfate 90 mcg/actuation (Ventolin HFA) 1 inh inhalation QID PRN ascorbic acid (vitamin C) 500 mg PO aspirin (Adult Aspirin Regimen) 81 mg PO DAILY atorvastatin 10 mg PO DAILY cetirizine (Zyrtec) 10 mg PO DAILY PRN cholecalciferol (vitamin D3) 25 mcg PO DAILY diclofenac sodium 75 mg PO BID PRN 90 days metformin 500 mg 2 times a day; 90 days metoprolol tartrate 12.5 mg (1/2 x 25 mg) PO BID multivitamin 1 tab PO DAILY mupirocin 2% 1 appl topical BID 15 days pantoprazole (Protonix) 40 mg PO DAILY tamsulosin 0.4 mg PO DAILY Tobacco use date assessed: 10/04/22 Fall risk assessment: No Falls in past year Last assessed Fall Risk: 04/11/23 Dental Screening Dental Screen Date: 04/11/23 Did you have a dental visit in the last 12 months?: Yes Did you have a dental problem in the last 6 months where you did not have access to dental care?: No Was dental information given to patient?: Patient has dentist HPI Annual Physical HPI Details 77-year-old obese male with diabetes mellitus coronary artery disease hypertension hypercholesterolemia GERD BPH with left shoulder pain coming in for physical exam last seen in September 2022. Patient did get the flu vaccine already and has seen podiatry and ophthalmology [facility] Medical History (Updated 04/11/23 @ 11:12 by Mack Wade MD) Fatty liver Urinary incontinence Essential tremor Asthma Pulmonary nodule, right Hypertension Hypercholesterolemia GERD (gastroesophageal reflux disease) Coronary artery disease Type 2 diabetes mellitus with hyperglycemia Surgical History Hx of rotator cuff surgery Carpal tunnel syndrome Family History Father Pancreatic cancer Mother No problems noted. Maternal Aunt Cancer Brother Cancer Social History (Updated 04/11/23 @ 10:58 by Mack Wade MD) Household Members: Spouse Housing: House Alcohol intake: current Alcohol intake frequency: holidays/special occasions only Patient Tobacco Use Status: Former Tobacco user Tobacco use type: Cigarette Years Smoked: quit 1979 e-Cigarette/Vaping Use: Never Used Second Hand Smoke Exposure: No service: Yes Current occupational status: retired Cognitive needs: No Hearing needs: No Vision needs: Yes Questionnaire Thrive Questionnaire Date Thrive assessed: 10/04/22 JESUS MANUEL-7 AMB Questionnaire JESUS MANUEL-7 Date JESUS MANUEL - 7 assessed: 10/04/22 Source: Developed by Drs. Scott Oviedo, Mattie Salmon, Kenneth Hammer and colleagues, with an educational hodan from [employer]. Review of Systems Const Denies poor appetite and Denies weakness Eyes Denies no additional complaints ENT Reports Normal hearing present, Denies dizziness, Denies nasal congestion, Denies tinnitus and Denies sore throat Card Denies chest pain, Denies syncope, Denies rapid heart rate and Denies dyspnea Resp Denies cough and Denies dyspnea GI Denies change in stool character, Reports constipation, Denies diarrhea, Denies nausea and Denies vomiting Denies dysuria and Denies urinary frequency Neuro Reports Normal hearing present, Denies confusion, Denies dizziness, Denies syncope and Denies weakness Psych Denies confusion Physical exam (Primary Care) Vital Signs: Last Vital Signs Pulse 58 04/11/23 10:19 BP 142/78 H 04/11/23 10:19 Pulse Ox 97 04/11/23 10:19 Oxygen Delivery Method Room Air 04/11/23 10:19 BMI result Body Mass Index 30.8 Tobacco/Smoking Status: Tobacco use Status Tobacco use date assessed 10/04/22 04/11/23 10:21 Patient Tobacco Use Status Former Tobacco user 04/11/23 10:21 Tobacco use type Cigarette 04/11/23 10:21 e-Cigarette/Vaping Use Never Used 04/11/23 10:21 Thrive Assessment: Date of Thrive Assessment Date Thrive assessed 10/04/22 04/11/23 10:21 Const General: No confusion Orientation/consciousness: No confusion HENMT Other: impacted cerumen bilateral Head: Yes normocephalic Ears: external ears normal Face and sinus: Yes normal facial exam Mouth: moist mucous membranes Throat: Yes tonsils normal Eyes Conjunctivae: conjunctivae normal Pupils: Equal, round and reactive pupils present and Pupil accommodation reflex normal Direct Ophthalmoscopy: normal light reflex Neck Neck: No lymphadenopathy Thyroid: Thyroid normal Chest Chest palpation & inspection: normal inspection of the chest Resp Effort & Inspection: normal respiratory effort and no audible wheezes Auscultation: clear to auscultation bilaterally, no crackles, no wheezes and lung sounds not diminished Cardio Other: irregular rate and rhythm Peripheral pulses: radial pulses present and dorsalis pedis present GI Other: guaiac negative prostate N Palpation (GI): no masses Auscultation: normal bowel sounds and normoactive bowel sounds Male General Exam: Yes normal external exam Skin General skin exam: no rashes or lesions noted Rashes: no rashes Neuro General: No confusion Cranial nerves: Yes Equal, round and reactive pupils present and Yes Normal hearing present Cognition (Neuro): normal cognition Gait exam (Neuro): Normal gait present Motor exam (neuro): 5/5 motor strength present throughout Deep tendon reflexes (DTR's): Right brachioradialis reflex intensity grade: 2+, Left brachioradialis reflex intensity grade: 2+, Right patellar reflex intensity grade: 2+ and Left patellar reflex intensity grade: 2+ Extrem Other: +1 edema le General: Yes edema Results AMB Hemoglobin A1c AMB Hemoglobin A1c 7.1 % Last Edit by UMM Navas on 04/11/23 10:34 Results Reviewed Results Reviewed: Laboratory Last Values Hgb A1c (Clinic) 7.1 % (4.0-6.0) H 04/11/23 10:34 Assessment and Plan Assessment & Plan (1) Annual physical exam: Code(s): Z00.00 - Encounter for general adult medical examination without abnormal findings (2) Coronary artery disease: Comment: Cath January 2017 moderate L PDA, echo January 2018 65% echo no change April 2019 stress test April 10 1019- Code(s): I25.10 - Atherosclerotic heart disease of [place] coronary artery without angina pectoris Qualifiers: Coronary Disease-Associated Artery/Lesion type: [place] artery [place] vs. transplanted heart: [place] heart Associated angina: without angina Qualified Code(s): I25.10 - Atherosclerotic heart disease of [place] coronary artery without angina pectoris Plan: Control the cholesterol, weight, blood pressure, diabetes continue with aspirin (3) Type 2 diabetes mellitus with hyperglycemia: Comment: [facility] Code(s): E11.65 - Type 2 diabetes mellitus with hyperglycemia Qualifiers: Diabetes mellitus terminal system operator insulin use: without alf use Qualified Code(s): E11.65 - Type 2 diabetes mellitus with hyperglycemia Plan: Decrease the amount of carbohydrate intake, pasta, bread, rice and potatoes are all sugar and that is aside from all the sweet stuff, remember that fruits are good but they are Sweet also. Hemoglobin A1c goal of less than 7.0. Patient on metformin (4) GERD (gastroesophageal reflux disease): Code(s): K21.9 - Gastro-esophageal reflux disease without esophagitis Qualifiers: Esophagitis presence: without esophagitis Qualified Code(s): K21.9 - Gastro-esophageal reflux disease without esophagitis Plan: Avoid the foods that causes that usually spicy foods, tomato products, juices, coffee, soda and foods that your sensitive to. After eating do not lie down, allow 3-4 hours before in lie down. And keep the head of bed above 30 degrees to avoid the acid from going up. (5) Hypercholesterolemia: Code(s): E78.00 - Pure hypercholesterolemia, unspecified Plan: Avoid fried foods, chicken skin, eggs, butter margarine, pastries and meat. Be it pork or beef they have a lot of cholesterol LDL goal of less than 70 and triglyceride of less than 150. Patient is on atorvastatin 10 mg once a (6) Hypertension: Code(s): I10 - Essential (primary) hypertension Qualifiers: Hypertension type: essential hypertension Qualified Code(s): I10 - Essential (primary) hypertension Plan: Continue with blood pressure medication. Decrease salt intake and exercise patient is on metoprolol 12.5 mg twice a day (7) BPH (benign prostatic hyperplasia): Code(s): N40.0 - Benign prostatic hyperplasia without lower urinary tract symptoms Qualifiers: Lower urinary tract symptom presence: symptoms present Lower urinary tract symptom detail: urinary frequency Qualified Code(s): N40.1 - Benign prostatic hyperplasia with lower urinary tract symptoms; R35.0 - Frequency of micturition Plan: Continue with tamsulosin (8) Arrhythmia: Code(s): I49.9 - Cardiac arrhythmia, unspecified Orders: Orders AMB Hemoglobin A1c Today Z13.9 - Encounter for screening, unspecified ECG 12 lead EKG Today I49.9 - Cardiac arrhythmia, unspecified Medications: New blood pressure monitor (Blood Pressure Kit) As directed 1 ea 0RF I10 - Essential (primary) hypertension Refilled cetirizine (Zyrtec) 10 mg PO DAILY PRN 30 tabs 0RF allergy symptoms R05.3 - Chronic cough Coding Level of Care Code Est Pt Prev Care >65y(09415) Diagnoses Annual physical exam Z00.00 Coronary artery disease involving [place] coronary artery of [place] heart without angina pectoris I25.10 Coronary Disease-Associated Artery/Lesion type: [place] artery [place] vs. transplanted heart: [place] heart Associated angina: without angina Type 2 diabetes mellitus with hyperglycemia, without long-term current use of insulin E11.65 Diabetes mellitus alf insulin use: without terminal system operator use Gastroesophageal reflux disease without esophagitis K21.9 Esophagitis presence: without esophagitis Hypercholesterolemia E78.00 Essential hypertension I10 Hypertension type: essential hypertension Benign prostatic hyperplasia with urinary frequency N40.1; R35.0 Lower urinary tract symptom presence: symptoms present Lower urinary tract symptom detail: urinary frequency Arrhythmia I49.9
[2023-04-11 10:19] VITALS: BP 142/78; PULSE 58; O2SAT 97; BMI 30.8
== END 2023-04-11 11:19 | disposition home or self-care (01) ==
PROVIDERS: Visit Provider Internal Medicine
DX: Z00.00 Encounter for general adult medical examination without abnormal findings (principal); I25.10 Atherosclerotic heart disease of native coronary artery without angina pectoris; E11.65 Type 2 diabetes mellitus with hyperglycemia; K21.9 Gastro-esophageal reflux disease without esophagitis; E78.00 Pure hypercholesterolemia, unspecified; I10 Essential (primary) hypertension; N40.1 Benign prostatic hyperplasia with lower urinary tract symptoms; R35.0 Frequency of micturition; I49.9 Cardiac arrhythmia, unspecified
CPT/HCPCS: 83036; 99397

== ENCOUNTER → 2023-04-14 09:39 | Outpatient (REF) | payer MEDICARE, SELFPAY ==
--- NOTE | 2023-04-14 09:46 | ECG_ITS ---
Test Reason : cardiac arrhythmia Blood Pressure : / mmHG Vent. Rate : 061 BPM Atrial Rate : 061 BPM P-R Int : 132 ms QRS Dur : 098 ms QT Int : 412 ms P-R-T Axes : 047 026 038 degrees QTc Int : 414 ms Sinus rhythm with marked sinus arrhythmia Nonspecific T wave abnormality Inferior leads Abnormal ECG When compared with ECG of 19-JUL-2021 11:16, Fusion complexes are no longer Present Premature ventricular complexes are no longer Present Vent. rate has decreased BY 55 BPM T wave amplitude has decreased in Inferior leads Referred By: Mack Wade Electronically Signed By:CARLITA ESPINOZA MD
== END ==
LOC: HO.CARD 09:39
PROVIDERS: PCP Internal Medicine; Visit Provider Internal Medicine
DX: I49.9 Cardiac arrhythmia, unspecified (principal)
CPT/HCPCS: 93005

== ENCOUNTER 2023-05-19 10:04 | Emergency (ER) | payer MEDICARE, SELFPAY ==
--- NOTE | ~2023-05-19 | CT_ITS ---
EXAMINATION: CT HEAD WITHOUT CONTRAST CT CERVICAL SPINE WITHOUT CONTRAST CLINICAL INFORMATION: Fall. COMPARISON: None TECHNIQUE: CT of the head and cervical spine were performed without intravenous contrast. Multiplanar reformats were rendered and reviewed. This CT examination was performed using dose optimization techniques as appropriate, variously including the following: *Automated exposure control *Adjustment of mA and/or kV according to patient size (this includes techniques or standardized protocols for targeted exams where dose is matched to indication/reason for exam; i.e. extremities or head) *Use of iterative reconstruction technique DLP: 361 mGy-cm. FINDINGS: CT head: There is no intracranial hemorrhage, extra-axial collection, mass effect, or acute territorial infarction. Mild hypoattenuation is seen within the cerebral white matter, typical of chronic microangiopathy. There is a probable small chronic lacunar infarct within the left basal ganglia. The calvarium is intact. The extracranial structures are within normal limits. CT cervical spine: The cervical vertebral bodies maintain normal heights and alignment. There is multilevel intervertebral disc height loss most advanced at C5-C6 and C6-C7. Several vacuum discs are noted in addition to degenerative endplate changes with sclerosis and subchondral cysts. There is multilevel facet arthropathy with severe degeneration of the left-sided facet at C3-C4. There is no fracture. There is no high-grade narrowing the spinal canal. There is multilevel high-grade neural foraminal stenosis predominantly related to disc osteophyte complexes and uncovertebral hypertrophy. The extraspinal soft tissues are within normal limits. The upper lungs are clear. CT/CT cervical spine wo IV con IMPRESSION: CT HEAD: No acute intracranial abnormality. CT CERVICAL SPINE: No cervical spine fracture or traumatic malalignment. Multilevel degenerative spondylosis.
--- NOTE | ~2023-05-19 | XR_ITS ---
EXAMINATION: XR KNEE, RIGHT CLINICAL INFORMATION: Status post fall. COMPARISON: None available. TECHNIQUE: Four views of the right knee. FINDINGS: The bones are osteopenic. Mild tricompartmental joint space narrowing with marginal osteophytes. There is evidence of chondrocalcinosis. Small suprapatellar joint effusion. Quadriceps tendon and patellar tendon enthesophytes. Arterial vascular calcifications. XR/XR knee RT 4V IMPRESSION: Mild osteoarthritis. Chondrocalcinosis.
[2023-05-19 10:16] VITALS: BP 158/70; PULSE 70; RESP 18; TEMP 36.5; O2SAT 94; BMI 30.2
--- NOTE | 2023-05-19 13:28 | ED_ITS ---
HPI - General Adult General Chief complaint: Fall Stated complaint: Fall/Head inj on thinners work related Time Seen by Provider: 05/19/23 12:54 Source: patient Mode of arrival: ambulatory Limitations: no limitations History of Present Illness HPI narrative: 77-year-old male history of BPH, GERD, hypertension, hypercholesteremia, and diabetes presents to the ED for fall. Patient states he was at work going down the stairs and he missed the last step which caused to fall and hit his head. Patient denies having any chest pain, headache, abdominal pain, dizziness, nausea or vomiting before falling. Patient only complaint is slight headache and right knee abrasion. patient states no other complaints. Related Data Home Medications Medication Instructions Recorded Confirmed cholecalciferol (vitamin D3) 25 25 mcg PO DAILY 03/31/20 04/11/23 mcg (1,000 unit) capsule multivitamin 1 tab PO DAILY 03/31/20 04/11/23 ascorbic acid (vitamin C) 500 mg 500 mg PO 05/29/22 04/11/23 capsule Previous Rx's Medication Instructions Recorded aspirin 81 mg tablet,delayed 81 mg PO DAILY #30 tabs 12/06/20 release (Adult Aspirin Regimen) mupirocin 2 % topical ointment 1 appl topical BID 15 days #22 07/14/21 grams pantoprazole 40 mg tablet,delayed 40 mg PO DAILY #14 tabs 08/07/22 release (Protonix) tamsulosin 0.4 mg capsule 0.4 mg PO DAILY #90 caps 08/07/22 metformin 500 mg tablet 500 mg .Route BID 90 days #180 tabs 10/20/22 diclofenac sodium 75 mg 75 mg PO BID PRN pain 90 days #180 10/28/22 tablet,delayed release caps atorvastatin 10 mg tablet 10 mg PO DAILY #100 tabs 04/06/23 metoprolol tartrate 25 mg tablet 12.5 mg (1/2 x 25 mg) PO BID #100 04/06/23 tabs blood pressure monitor (Blood #1 ea 04/11/23 Pressure Kit) cetirizine 10 mg tablet (Zyrtec) 10 mg PO DAILY PRN allergy 04/11/23 symptoms #30 tabs albuterol sulfate 90 mcg/actuation 1 inh inhalation QID PRN shortness 05/18/23 aerosol inhaler (Ventolin HFA) of breath or wheezing #8.5 grams Allergies Allergy/AdvReac Type Severity Reaction Status Date / Time lisinopril Allergy Mild cough Verified 05/19/23 10:19 losartan AdvReac Intermediate Cough Verified 05/19/23 10:19 Review of Systems 2 Review of Systems: Fall Yes all other systems are reviewed and are negative [facility] Past Medical History Medical History (Updated 05/20/23 @ 00:02 by Edna Caballero) Fatty liver Urinary incontinence Essential tremor Asthma Pulmonary nodule, right Hypertension Hypercholesterolemia GERD (gastroesophageal reflux disease) Coronary artery disease Type 2 diabetes mellitus with hyperglycemia Surgical History Hx of rotator cuff surgery Carpal tunnel syndrome Family History Family History Father Pancreatic cancer Mother No problems noted. Maternal Aunt Cancer Brother Cancer Social History Social History (Updated 04/11/23 @ 10:58 by Mack Wade MD) Household Members: Spouse Housing: House Alcohol intake: current Alcohol intake frequency: holidays/special occasions only Patient Tobacco Use Status: Former Tobacco user Tobacco use type: Cigarette Years Smoked: quit 1979 e-Cigarette/Vaping Use: Never Used Second Hand Smoke Exposure: No Advance Directives: No Advance Directives Information Provided: Yes service: Yes Current occupational status: retired Cognitive needs: No Hearing needs: No Vision needs: Yes Physical Exam ED Vital Signs: Vital Signs - 24 hr 05/19/23 10:16 Temperature 97.7 F Pulse Rate 70 Respiratory Rate 18 Blood Pressure 158/70 H Pulse Oximetry 94 Oxygen Delivery Method Room Air BMI result Body Mass Index 30.2 Const General: cooperative, healthy appearing, comfortable, no acute distress, well developed, alert, awake and Physically active Orientation/consciousness: oriented to person, oriented to place, oriented to time and patient oriented x3 HENMT Head: Yes normal to inspection, Yes No palpable skull fracture present, Yes normocephalic, Yes atraumatic and No abrasion Ears: hearing grossly normal bilaterally, external ears normal, TM's normal bilaterally, TM normal on the right, TM normal on the left, EAC's normal, mastoids normal and no periauricular adenopathy Eyes General: appearance normal, both eyes and all related structures Neck Neck: Yes normal visual inspection, Yes full ROM, Yes no lymphadenopathy, Yes no meningeal signs, Yes trachea midline, Yes supple, No anterior neck swelling and No tender Chest Chest palpation & inspection: normal inspection of the chest and normal palpation of entire chest wall Resp Effort & Inspection: normal respiratory effort and able to speak in complete sentences Auscultation: clear to auscultation bilaterally Cardio Jugular venous distension: no JVD Heart sounds: S1 normal heart sound present and S2 normal heart sound present GI Inspection: Yes normal to inspection Palpation (GI): Soft to palpation, not firm, nontender, no guarding and not rigid General: No CVA tenderness and Yes no CVA tenderness Back/Spine/Pelvis Back: no CVA tenderness, No CVA tenderness and No back tenderness Skin General skin exam: no rashes or lesions noted, elasticity normal and turgor normal Neuro General: oriented to person, oriented to place, oriented to time, patient oriented x3, gait normal, tone normal, moves all extremities, Normal light touch and pain sensation, no meningeal signs, no focal motor deficits, CN's II-XI intact bilaterally and normal sensation to monofilament Extrem General: Yes normal to inspection, Yes full ROM and Yes capillary refill normal Knee images: 2 1. abrasion. No need for laceration repair. Motor/ neuro/vascular exam intact Psych Appearance: grossly normal, well kempt and not disheveled Medications Administered Discontinued Medications Generic Name Dose Route Start Last Admin Trade Name Freq PRN Reason Stop Dose Admin Diphtheria/Tetanus/Acell Pertussis 0.5 ml 05/19/23 13:40 05/19/23 14:24 Diphth,Pertus(Acell),Tet Adult 0.5 Ml Syringe IM 05/19/23 13:41 0.5 ml .ONCE ONE Administration Medical Decision Making Medical Decision Making [facility] Narrative: 70 yold history diabetes hypertension GERD presents ED for mechanical fall that occurred at work earlier today. Patient states missed a step causing to fall. Patient denies having any dizziness, chest pain, headache, nausea, vomiting, or abdominal pain for falling. Patient denies any loss of consciousness. Patient on aspirin. Patient sent for head CT cervical spine CT and the x-ray. 3:42Pm: Head CT cervical spine CT scan came back normal. Right knee x-ray normal. Whole-body examine negative for signs of life-threatening injuries. No need for labs or EKG. Patient had mechanical fall. Patient explaining worrisome sign informed return to the ED if he has them. 02 saturation before discharge 98% on monitor. Differential Diagnosis Differential Diagnoses: The differential diagnosis associated with the presentation includes Admission/Observation Consideration of admission/observation: Escalation of care including admission/observation considered Independent Historian Clinical information obtained from an independent historian. History obtained from or confirmed by: Spouse External Record Review External record reviewed: Other ( prior visits) Prescription Management I considered prescription management with: Pain Medication Discharge Plan Discharge Clinical Impression: Head injury, Fall, Abrasion Patient Disposition: Home, Self-Care Instructions: Fall Prevention for Older Adults (ED), Head Injury (ED), Abrasion (ED) Additional Instructions: recommend follow-up with primary care provider. Return to the ED immediately for any nausea, vomiting, headache, bleeding from the ears, chest pain, shortness of breath, rectal bleeding, vomiting blood, blood in urine, bruising, leg swelling, bluish discoloration, pain in extremities, or any other concerning symptoms. Prescriptions: No Action tamsulosin 0.4 mg capsule 0.4 mg PO DAILY Qty: 90 2RF pantoprazole [Protonix] 40 mg tablet,delayed release (DR/EC) 40 mg PO DAILY Qty: 14 0RF metformin 500 mg tablet 500 mg .ROUTE BID 90 Days Qty: 180 3RF Rx Instructions: 500 mg 2 times a day; diclofenac sodium 75 mg tablet,delayed release (DR/EC) 75 mg PO BID PRN (Reason: pain) 90 Days Qty: 180 3RF atorvastatin 10 mg tablet 10 mg PO DAILY Qty: 100 2RF metoprolol tartrate 25 mg tablet 12.5 mg PO BID Qty: 100 2RF albuterol sulfate [Ventolin HFA] 90 mcg/actuation HFA aerosol inhaler 1 inh inhalation QID PRN (Reason: shortness of breath or wheezing) Qty: 8.5 1RF multivitamin Tablet 1 tab PO DAILY cholecalciferol (vitamin D3) 25 mcg (1,000 unit) capsule 25 mcg PO DAILY ascorbic acid (vitamin C) 500 mg capsule 500 mg PO aspirin [Adult Aspirin Regimen] 81 mg tablet,delayed release (DR/EC) 81 mg PO DAILY Qty: 30 0RF mupirocin 2 % ointment 1 appl topical BID 15 Days Qty: 22 0RF cetirizine [Zyrtec] 10 mg tablet 10 mg PO DAILY PRN (Reason: allergy symptoms) Qty: 30 0RF (DME) blood pressure monitor [Blood Pressure Kit] Kit See Rx Instructions .ROUTE .MEDSUPPLY Qty: 1 0RF Rx Instructions: As directed Interventions: ED Discharge Assessment Last Done: 05/19/23 15:52 Discharge Date/Time: 05/19/23 15:53 Print Language: [place]
[2023-05-19] MEDS: Diphth,Pertus(ACell),Tet Adult 0.5 ML SYRINGE IM (14:24)
== END 2023-05-19 15:53 | disposition home or self-care (01) ==
PROVIDERS: Emergency Provider Emergency Medicine; PCP Internal Medicine
DX: S09.90XA Unspecified injury of head, initial encounter (principal); S80.211A Abrasion, right knee, initial encounter; W10.8XXA Fall (on) (from) other stairs and steps, initial encounter; Y93.89 Activity, other specified; Y92.811 Bus as the place of occurrence of the external cause; Y99.0 Civilian activity done for income or pay
CPT/HCPCS: 70450; 72125; 73564; 90471; 90715; 99283; 99284

== ENCOUNTER 2023-07-25 09:35 | Outpatient (AMB) | payer MEDICARE, SELFPAY ==
[2023-07-25 09:52] VITALS: BP 138/68; PULSE 79; O2SAT 96; BMI 29.8
--- NOTE | 2023-07-25 09:52 | MHC.PC.OV ---
Vital Signs 07/25/23 09:52 Height 5 ft 5 in Weight 179 lb 0.6 oz BMI 29.8 BP 138/68 Blood Pressure Location Lt brachial Position Sitting Pulse 79 Pulse Source Pulse Oximeter Pulse Oximetry (%) 96 Oxygen Delivery Method Room Air Intake Visit Reasons: 3 month f/u [employer] [place] Required: No Allergies lisinopril Allergy (Mild, Verified 05/19/23 10:19) cough losartan Adverse Reaction (Intermediate, Verified 05/19/23 10:19) Cough Tobacco use date assessed: 07/25/23 Fall risk assessment: No Falls in past year Last assessed Fall Risk: 07/25/23 Dental Screening Dental Screen Date: 07/25/23 Did you have a dental visit in the last 12 months?: Yes Did you have a dental problem in the last 6 months where you did not have access to dental care?: No Was dental information given to patient?: Patient has dentist HPI 3 month f/u HPI Details 78-year-old overweight male with coronary artery disease diabetes mellitus GERD hypercholesterolemia hypertension BPH last seen in April 2023. . Patient is here for follow-up. Review of the notes Radu had a fall at work going down the stairs missed the last step hit his head. Had a knee right abrasion, feel better. rash on the L chest noted [facility] Medical History (Updated 05/20/23 @ 00:02 by Edna Caballero) Fatty liver Urinary incontinence Essential tremor Asthma Pulmonary nodule, right Hypertension Hypercholesterolemia GERD (gastroesophageal reflux disease) Coronary artery disease Type 2 diabetes mellitus with hyperglycemia Surgical History Hx of rotator cuff surgery Carpal tunnel syndrome Family History Father Pancreatic cancer Mother No problems noted. Maternal Aunt Cancer Brother Cancer Social History (Updated 04/11/23 @ 10:58 by Mack Wade MD) Household Members: Spouse Housing: House Alcohol intake: current Alcohol intake frequency: holidays/special occasions only Patient Tobacco Use Status: Former Tobacco user Tobacco use type: Cigarette Years Smoked: quit 1979 e-Cigarette/Vaping Use: Never Used Second Hand Smoke Exposure: No service: Yes Current occupational status: retired Cognitive needs: No Hearing needs: No Vision needs: Yes Questionnaire PHQ-9 Over the last 2 weeks, how often have you been bothered by any of the following problems? 1. Little interest or pleasure in doing things: not at all 2. Feeling down, depressed, or hopeless: not at all 3. Trouble falling or staying asleep, or sleeping too much: not at all 4. Feeling tired or having little energy: not at all 5. Poor appetite or overeating: not at all 6. Feeling bad about yourself - or that you are a failure or have let yourself or your family down: not at all 7. Trouble concentrating on things, such as reading the newspaper or watching television: not at all 8. Moving or speaking so slowly that other people could have noticed. Or the opposite - being so fidgety or restless that you have been moving around a lot more than usual: not at all 9. Thoughts that you would be better off or of hurting yourself in some way: not at all Total score: 0 Depression Screening Interpretation: Negative Depression Screening Done: Yes Source: Developed by Drs. Scott Oviedo, Mattie Salmon, Kenneth Hammer and colleagues, with an educational hodan from [employer]. Thrive Questionnaire Date Thrive assessed: 07/25/23 AUDIT C Alcohol Use Questionnaire (AUDIT-C) 1. How often do you have a drink containing alcohol?: Monthly or less 2. How many drinks containing alcohol do you have on a typical day when you are drinking?: 1 or 2 3. How often do you have six or more drinks on one occasion?: Never Total Score: 1 Score Reviewed/Action Taken: Yes JESUS MANUEL-7 AMB Questionnaire JESUS MANUEL-7 Date JESUS MANUEL - 7 assessed: 07/25/23 Source: Developed by Drs. Scott Oviedo, Mattie Salmon, Kenneth Hammer and colleagues, with an educational hodan from [employer]. Physical exam (Primary Care) Vital Signs: Last Vital Signs Pulse 79 07/25/23 09:52 BP 138/68 07/25/23 09:52 Pulse Ox 96 07/25/23 09:52 Oxygen Delivery Method Room Air 07/25/23 09:52 BMI result Body Mass Index 29.8 Tobacco/Smoking Status: Tobacco use Status Tobacco use date assessed 07/25/23 07/25/23 09:53 Patient Tobacco Use Status Former Tobacco user 07/25/23 09:52 Tobacco use type Cigarette 07/25/23 09:52 e-Cigarette/Vaping Use Never Used 07/25/23 09:52 PHQ-9: PHQ-9 Score PHQ-9: Total score 0 07/25/23 10:05 Depression Screening Interpretation: Negative Thrive Assessment: Date of Thrive Assessment Date Thrive assessed 07/25/23 07/25/23 09:53 Const General: alert; No acute distress Eyes Conjunctivae: conjunctivae normal Resp Auscultation: clear to auscultation bilaterally Cardio Rate: regular rate Rhythm: regular rhythm GI Inspection: Yes normal to inspection Extrem General: Yes normal to inspection and No edema Results AMB Hemoglobin A1c AMB Hemoglobin A1c 7.9 % Last Edit by LUIS Fairbanks on 07/25/23 10:05 Results Reviewed Results Reviewed: Laboratory Last Values Hgb A1c (Clinic) 7.9 % (4.0-6.0) H 07/25/23 09:27 Assessment and Plan Assessment & Plan (1) Type 2 diabetes mellitus with hyperglycemia: Comment: [facility] Code(s): E11.65 - Type 2 diabetes mellitus with hyperglycemia Qualifiers: Diabetes mellitus long term care social worker insulin use: without senior living use Qualified Code(s): E11.65 - Type 2 diabetes mellitus with hyperglycemia Plan: Decrease the amount of carbohydrate intake, pasta, bread, rice and potatoes are all sugar and that is aside from all the sweet stuff, remember that fruits are good but they are Sweet also. Hemoglobin A1c goal of less than 7.0. Patient is on metformin only (2) Coronary artery disease: Comment: Cath January 2017 moderate L PDA, echo January 2018 65% echo no change April 2019 stress test April 10 1019- Code(s): I25.10 - Atherosclerotic heart disease of [place] coronary artery without angina pectoris Qualifiers: Coronary Disease-Associated Artery/Lesion type: [place] artery [place] vs. transplanted heart: [place] heart Associated angina: without angina Qualified Code(s): I25.10 - Atherosclerotic heart disease of [place] coronary artery without angina pectoris Plan: Control the cholesterol, weight, blood pressure, diabetes continue with aspirin 81 mg once a day (3) GERD (gastroesophageal reflux disease): Code(s): K21.9 - Gastro-esophageal reflux disease without esophagitis Qualifiers: Esophagitis presence: without esophagitis Qualified Code(s): K21.9 - Gastro-esophageal reflux disease without esophagitis Plan: Avoid the foods that causes that usually spicy foods, tomato products, juices, coffee, soda and foods that your sensitive to. After eating do not lie down, allow 3-4 hours before in lie down. And keep the head of bed above 30 degrees to avoid the acid from going up. (4) Hypercholesterolemia: Code(s): E78.00 - Pure hypercholesterolemia, unspecified Plan: Avoid fried foods, chicken skin, eggs, butter margarine, pastries and meat. Be it pork or beef they have a lot of cholesterol LDL goal of less than 70 and triglyceride of less than 150 on atorvastatin 10 mg once a day (5) Hypertension: Code(s): I10 - Essential (primary) hypertension Qualifiers: Hypertension type: essential hypertension Qualified Code(s): I10 - Essential (primary) hypertension Plan: Continue with blood pressure medication. Decrease salt intake and exercise patient takes metoprolol only. Orders: Orders AMB Hemoglobin A1c Today E11.65 - Type 2 diabetes mellitus with hyperglycemia Medications: Changed From metformin 500 mg 2 times a day; 90 days 180 tabs 3RF E11.65 - Type 2 diabetes mellitus with hyperglycemia To metformin 1,000 mg 2 times a day; 90 days 180 tabs 1RF E11.65 - Type 2 diabetes mellitus with hyperglycemia Coding Level of Care Code Est Pt Level 4 (63323) Diagnoses Type 2 diabetes mellitus with hyperglycemia, without long-term current use of insulin E11.65 Diabetes mellitus long term care social worker insulin use: without long term care social worker use Coronary artery disease involving [place] coronary artery of [place] heart without angina pectoris I25.10 Coronary Disease-Associated Artery/Lesion type: [place] artery [place] vs. transplanted heart: [place] heart Associated angina: without angina Gastroesophageal reflux disease without esophagitis K21.9 Esophagitis presence: without esophagitis Hypercholesterolemia E78.00 Essential hypertension I10 Hypertension type: essential hypertension Additional Codes PHQ-9 - 21410 - PHQ-9 Billing: ([id number])
== END 2023-07-25 10:39 | disposition home or self-care (01) ==
PROVIDERS: PCP Internal Medicine; Visit Provider Internal Medicine
DX: E11.65 Type 2 diabetes mellitus with hyperglycemia (principal); I25.10 Atherosclerotic heart disease of native coronary artery without angina pectoris; K21.9 Gastro-esophageal reflux disease without esophagitis; E78.00 Pure hypercholesterolemia, unspecified; I10 Essential (primary) hypertension
CPT/HCPCS: 83036; 99214

== ENCOUNTER 2023-09-25 11:08 | Outpatient (AMB) | payer MEDICARE, SELFPAY ==
[2023-09-25 11:09] VITALS: BP 140/80; PULSE 57; O2SAT 97; BMI 28.3
--- NOTE | 2023-09-25 11:09 | A.OFFPC_ITS ---
Vital Signs 09/25/23 11:09 Height 5 ft 4 in Weight 165 lb BMI 28.3 BP 140/80 H Blood Pressure Location Lt brachial Position Sitting Pulse 57 Pulse Source Pulse Oximeter Pulse Oximetry (%) 97 Oxygen Delivery Method Room Air Intake Visit Reasons: follow up Intake Note: Patient has lower back pain, fatigue, sciatic pain, dizziness, light headed Allergies lisinopril Allergy (Mild, Verified 09/25/23 11:09) cough losartan Adverse Reaction (Intermediate, Verified 09/25/23 11:09) Cough Tobacco use date assessed: 09/25/23 Fall risk assessment: No Falls in past year Last assessed Fall Risk: 09/25/23 Dental Screening Dental Screen Date: 09/25/23 Did you have a dental visit in the last 12 months?: Yes Did you have a dental problem in the last 6 months where you did not have access to dental care?: No Was dental information given to patient?: Patient has dentist HPI follow up 2 HPI Details 78-year-old overweight male with uncontr olled diabetes mellitus coronary artery disease GERD hypercholesterolemia hypertension last seen in July 2023. [address] was the last complete blood work. Recently has been complaining of tiredness. 2 week getting worse, decrease apetitte. Patient also complains of lower back pain radiating to the right side of the gluteal area thought it was sciatica and was seen by chiropractor which did not help. And with the persistent prompting for consultation. No nausea no vomiting no fever no shortness a breath has the cough occasionally no bowel bladder symptoms. Patient is noted to have lost weight but from the last meeting had an elevated hemoglobin A1c and so has changed his diet. [facility] Medical History (Updated 09/25/23 @ 11:32 by Mack Wade MD) Fatty liver Urinary incontinence Essential tremor Asthma Pulmonary nodule, right Hypertension Hypercholesterolemia GERD (gastroesophageal reflux disease) Coronary artery disease Type 2 diabetes mellitus with hyperglycemia Surgical History Hx of rotator cuff surgery Carpal tunnel syndrome Family History Father Pancreatic cancer Mother No problems noted. Maternal Aunt Cancer Brother Cancer Social History (Updated 04/11/23 @ 10:58 by Mack Wade MD) Household Members: Spouse Housing: House Alcohol intake: current Alcohol intake frequency: holidays/special occasions only Patient Tobacco Use Status: Former Tobacco user Tobacco use type: Cigarette Years Smoked: quit 1979 e-Cigarette/Vaping Use: Never Used Second Hand Smoke Exposure: No service: Yes Current occupational status: retired Cognitive needs: No Hearing needs: No Vision needs: Yes Questionnaire PHQ-9 Over the last 2 weeks, how often have you been bothered by any of the following problems? 1. Little interest or pleasure in doing things: not at all 2. Feeling down, depressed, or hopeless: not at all 3. Trouble falling or staying asleep, or sleeping too much: not at all 4. Feeling tired or having little energy: not at all 5. Poor appetite or overeating: not at all 6. Feeling bad about yourself - or that you are a failure or have let yourself or your family down: not at all 7. Trouble concentrating on things, such as reading the newspaper or watching television: not at all 8. Moving or speaking so slowly that other people could have noticed. Or the opposite - being so fidgety or restless that you have been moving around a lot more than usual: not at all 9. Thoughts that you would be better off or of hurting yourself in some way: not at all Total score: 0 Depression Screening Interpretation: Negative Depression Screening Done: Yes Source: Developed by Drs. Scott Oviedo, Mattie Salmon, Kenneth Hammer and colleagues, with an educational hodan from [employer]. Thrive Questionnaire Date Thrive assessed: 09/25/23 I am a: Patient What is your living situation today?: I have a steady place to live Within the past 12 months, did the food you bought not last and you didn't have the money to get more?: Never true Within the past 12 months, did you worry whether your food would run out before you got money to buy more?: Never true Do you have trouble paying for medicines?: No Do you have trouble getting transportation to medical appointments?: No Do you have trouble paying your heating and electricity bill?: No Do you have trouble taking care of your child, family member or friend?: No Do you have trouble with day-to-day activities such as bathing, preparing meals, shopping, managing finances, etc.?: No Are you currently unemployed and looking for a job?: No Are you interested in more education?: No Currently or been in a relationship where the following occur: no concerns rep orted THRIVE Score: 0 AUDIT C Alcohol Use Questionnaire (AUDIT-C) 1. How often do you have a drink containing alcohol?: Monthly or less 2. How many drinks containing alcohol do you have on a typical day when you are drinking?: 1 or 2 3. How often do you have six or more drinks on one occasion?: Never Total Score: 1 Score Reviewed/Action Taken: Yes JESUS MANUEL-7 AMB Questionnaire JESUS MANUEL-7 Date JESUS MANUEL - 7 assessed: 09/25/23 Feeling nervous, anxious, or on edge: 0 = Not at all Not being able to stop or control worryin = Not at all Worrying too much about different things: 0 = Not at all Trouble relaxin = Not at all Being so restless that it is hard to sit still: 0 = Not at all Becoming easily annoyed or irritable: 0 = Not at all Feeling afraid as if something awful might happen: 0 = Not at all Total JESUS MANUEL-7 score (0-4 normal; 5-9 mild; 10-14 moderate; 15-21 severe): 0 Source: Developed by Drs. Scott Oviedo, Mattie Salmon, Kenneth Hammer and colleagues, with an educational hodan from [employer]. Physical exam (Primary Care) Vital Signs: Last Vital Signs Pulse 57 09/25/23 11:09 BP 140/80 H 09/25/23 11:09 Pulse Ox 97 09/25/23 11:09 Oxygen Delivery Method Room Air 09/25/23 11:09 BMI result Body Mass Index 28.3 Tobacco/Smoking Status: Tobacco use Status Tobacco use date assessed 09/25/23 09/25/23 11:18 Patient Tobacco Use Status Former Tobacco user 09/25/23 11:18 Tobacco use type Cigarette 09/25/23 11:18 e-Cigarette/Vaping Use Never Used 09/25/23 11:18 PHQ-9: PHQ-9 Score PHQ-9: Total score 0 09/25/23 11:18 Depression Screening Interpretation: Negative Thrive Assessment: Date of Thrive Assessment Date Thrive assessed 09/25/23 09/25/23 11:18 Currently or been in a relationship where the following occur: no concerns reported Const General: alert; No acute distress Eyes Conjunctivae: conjunctivae normal Resp Auscultation: clear to auscultation bilaterally Cardio Rate: regular rate Rhythm: regular rhythm GI Inspection: Yes normal to inspection Extrem General: Yes normal to inspection and No edema Assessment and Plan Assessment & Plan (1) Type 2 diabetes mellitus with hyperglycemia: Comment: [facility] Code(s): E11.65 - Type 2 diabetes mellitus with hyperglycemia Qualifiers: Diabetes mellitus remote computer terminal operator insulin use: without remote computer terminal operator use Qualified Code(s): E11.65 - Type 2 diabetes mellitus with hyperglycemia Plan: Decrease the amount of carbohydrate intake, pasta, bread, rice and potatoes are all sugar and that is aside from all the sweet stuff, remember that fruits are good but they are Sweet also. Hemoglobin A1c goal of less than 7.0. Patient presently on metformin only. (2) Coronary artery disease: Comment: Cath January 2017 moderate L PDA, echo January 2018 65% echo no change April 2019 stress test April 10 1019- Code(s): I25.10 - Atherosclerotic heart disease of [place] coronary artery without angina pectoris Qualifiers: Coronary Disease-Associated Artery/Lesion type: [place] artery [place] vs. transplanted heart: [place] heart Associated angina: without angina Qualified Code(s): I25.10 - Atherosclerotic heart disease of [place] coronary artery without angina pectoris Plan: Control the cholesterol, weight, blood pressure, diabetes and on aspirin 81 mg once a day (3) GERD (gastroesophageal reflux disease): Code(s): K21.9 - Gastro-esophageal reflux disease without esophagitis Qualifiers: Esophagitis presence: without esophagitis Qualified Code(s): K21.9 - Gastro-esophageal reflux disease without esophagitis Plan: Avoid the foods that causes that usually spicy foods, tomato products, juices, coffee, soda and foods that your sensitive to. After eating do not lie down, allow 3-4 hours before in lie down. And keep the head of bed above 30 degrees to avoid the acid from going up. On pantoprazole (4) Hypercholesterolemia: Code(s): E78.00 - Pure hypercholesterolemia, unspecified Plan: Avoid fried foods, chicken skin, eggs, butter margarine, pastries and meat. Be it pork or beef they have a lot of cholesterol LDL goal of less than 70 and triglyceride of less than 150 atorvastatin 10 mg once a day (5) Hypertension: Code(s): I10 - Essential (primary) hypertension Qualifiers: Hypertension type: essential hypertension Qualified Code(s): I10 - Essential (primary) hypertension Plan: Continue with blood pressure medication. Decrease salt intake and exercise on metoprolol 12.5 mg p.o. twice a day (6) BPH (benign prostatic hyperplasia): Code(s): N40.0 - Benign prostatic hyperplasia without lower urinary tract symptoms Qualifiers: Lower urinary tract symptom presence: symptoms present Lower urinary tract symptom detail: urinary frequency Qualified Code(s): N40.1 - Benign prostatic hyperplasia with lower urinary tract symptoms; R35.0 - Frequency of micturition Plan: Presently on tamsulosin (7) Arrhythmia: Code(s): I49.9 - Cardiac arrhythmia, unspecified Plan: EKG requested as well as blood work (8) Right sciatic nerve pain: Code(s): M54.31 - Sciatica, right side Plan: Patient has had chiropractic therapy with no resolution. X-ray requested (9) Tiredness: Code(s): R53.83 - Other fatigue Plan: Advised patient to work this up with blood work as well as x-rays (10) Chronic cough: Code(s): R05.3 - Chronic cough Plan: Chest x-ray requested Orders: Orders ECG 12 lead EKG Today I49.9 - Cardiac arrhythmia, unspecified XR lumbar spine 2-3V Today M54.31 - Sciatica, right side XR hip RT min 2V Today M54.31 - Sciatica, right side Comprehensive Met. Panel Today I49.9 - Cardiac arrhythmia, unspecified Thyroid Stimulating Hormone Today I49.9 - Cardiac arrhythmia, unspecified Phosphorus Today I49.9 - Cardiac arrhythmia, unspecified Complete Blood Count Auto Diff Today I49.9 - Cardiac arrhythmia, unspecified Free T4 (Free Thyroxine) Today I49.9 - Cardiac arrhythmia, unspecified Magnesium Today I49.9 - Cardiac arrhythmia, unspecified XR chest 2V Today R05.3 - Chronic cough Coding Level of Care Code Est Pt Level 4 (76436) Diagnoses Type 2 diabetes mellitus with hyperglycemia, without long-term current use of insulin E11.65 Diabetes mellitus remote computer terminal operator insulin use: without remote computer terminal operator use Coronary artery disease involving [place] coronary artery of [place] heart without angina pectoris I25.10 Coronary Disease-Associated Artery/Lesion type: [place] artery [place] vs. transplanted heart: [place] heart Associated angina: without angina Gastroesophageal reflux disease without esophagitis K21.9 Esophagitis presence: without esophagitis Hypercholesterolemia E78.00 Essential hypertension I10 Hypertension type: essential hypertension Benign prostatic hyperplasia with urinary frequency N40.1; R35.0 Lower urinary tract symptom presence: symptoms present Lower urinary tract symptom detail: urinary frequency Arrhythmia I49.9 Right sciatic nerve pain M54.31 Tiredness R53.83 Chronic cough R05.3 Additional Codes PHQ-9 - 91849 - PHQ-9 Billing: ([id number])
== END 2023-09-25 13:04 | disposition home or self-care (01) ==
PROVIDERS: PCP Internal Medicine; Visit Provider Internal Medicine
DX: E11.65 Type 2 diabetes mellitus with hyperglycemia (principal); I25.10 Atherosclerotic heart disease of native coronary artery without angina pectoris; K21.9 Gastro-esophageal reflux disease without esophagitis; E78.00 Pure hypercholesterolemia, unspecified; I10 Essential (primary) hypertension; N40.1 Benign prostatic hyperplasia with lower urinary tract symptoms; R35.0 Frequency of micturition; I49.9 Cardiac arrhythmia, unspecified; M54.31 Sciatica, right side; R53.83 Other fatigue; R05.3 Chronic cough
CPT/HCPCS: 99214

== ENCOUNTER 2023-09-25 11:42 | Outpatient (REF) | payer MEDICARE, SELFPAY ==
--- NOTE | ~2023-09-25 | XR_ITS ---
EXAMINATION: XR HIP, RIGHT CLINICAL INFORMATION: Sciatica, right side COMPARISON: None available. TECHNIQUE: Two views of the right hip. FINDINGS: No fracture. Alignment is anatomic. Hip joint space is maintained. Soft tissues are unremarkable. There is mild degenerative change of the right sacroiliac joint. Vascular calcifications are seen. There is chondrocalcinosis of the pubic symphysis. XR/XR hip RT min 2V IMPRESSION: 1. No significant bony abnormality of the right hip. 2. Chondrocalcinosis of the pubic symphysis.
--- NOTE | ~2023-09-25 | XR_ITS ---
EXAMINATION: XR LUMBOSACRAL SPINE CLINICAL INFORMATION: Sciatica right side COMPARISON: Lumbar spine 04/05/2014 TECHNIQUE: Three views of the lumbosacral spine. FINDINGS: There 5 nonrib-bearing lumbar-type vertebral bodies. The height of vertebral bodies is well-maintained. There is disc space narrowing at L1-L2 with marginal osteophyte formation. There is spondylosis of the lower thoracic spine and extending from L1-L2 through L3-L4. There is bilateral facet arthropathy, most pronounced at L4-L5 and L5-S1. No spondylolysis or spondylolisthesis. XR/XR lumbar spine 2-3V IMPRESSION: 1. Degenerative disc disease at L1-L2. 2. Multilevel spondylosis. 3. Multilevel facet arthropathy.
--- NOTE | ~2023-09-25 | XR_ITS ---
EXAMINATION: XR CHEST CLINICAL INFORMATION: Chronic cough COMPARISON: Chest 04/19/2022 TECHNIQUE: 2 views of the chest were obtained. FINDINGS: No significant abnormality is noted involving the heart, lungs, mediastinum, bony thorax or soft tissues. XR/XR chest 2V IMPRESSION: No acute cardiopulmonary disease.
--- NOTE | 2023-09-25 11:58 | ECG_ITS ---
Test Reason : I49.9 - Cardiac arrhythmia, unspecified Blood Pressure : / mmHG Vent. Rate : 056 BPM Atrial Rate : 056 BPM P-R Int : 130 ms QRS Dur : 092 ms QT Int : 440 ms P-R-T Axes : 050 039 049 degrees QTc Int : 424 ms Sinus bradycardia with marked sinus arrhythmia with occasional Premature ventricular complexes Otherwise normal ECG When compared with ECG of 14-APR-2023 09:51, Premature ventricular complexes are now Present Referred By: Mack Wade Electronically Signed By:PHILLIP BORDEN
[2023-09-25 12:09] LABS: MANUAL DIFF FLAG NO
[2023-09-25 12:27] LABS: Basophils Percent Auto 0.6 % (0-2); Eosinophils Absolute Auto 0.6 X10*3/uL (0.0-0.4); Eosinophils Percent Auto 8.1 % (0-4); Hematocrit 46.7 % (42.0-52.0); Hemoglobin 15.8 g/dl (14.0-18.0); Imm Gran Abs Auto 0.04 X10*3/uL (0.00-0.03); Imm Gran Pct Auto 0.6 % (0.0-0.4); Lymphocytes Absolute Auto 1.1 X10*3/uL (1.2-4.9); Lymphocytes Percent Auto 15.6 % (20-40); Mean Corpuscular HGB Conc 33.8 g/dl (31.0-36.0); Mean Corpuscular Hemoglobin 29.9 pg (27.0-33.0); Mean Corpuscular Volume 88.3 fL (80.0-98.0); Mean Platelet Volume 9.5 fL (9.4-12.4); Monocytes Absolute Auto 0.8 X10*3/uL (0.1-1.2); Monocytes Percent Auto 11.9 % (2-11); Neutrophils Absolute Auto 4.3 x10*3/uL (2.0-8.3); Neutrophils Percent Auto 63.2 % (45-73); Platelet Count 242 X10*3/uL (160-400); Red Blood Count 5.29 X10*6/uL (4.60-5.80); Red Cell Distribution Width 12.9 % (11.0-16.0); White Blood Count 6.8 X10*3/uL (4.8-10.8)
[2023-09-25 13:05] LABS: Alanine Aminotransferase 57 U/L (0-40); Albumin Level 4.3 g/dL (3.5-5.0); Alkaline Phosphatase 92 U/L (39-117); Anion Gap 10 (12-20); Aspartate Amino Transferase 25 U/L (5-37); Bilirubin Total 0.4 mg/dL (0.0-1.0); Blood Urea Nitrogen 17 mg/dL (9-16); Calcium 9.6 mg/dL (8.4-10.2); Carbon Dioxide 28 mmol/L (22-29); Chloride 107 mmol/L (96-108); Estimated Glomerular Filt Rate > 60; Glucose Random 133 mg/dL (60-115); Magnesium 1.9 mg/dL (1.6-2.6); Potassium 4.2 mmol/L (3.3-5.1); Sodium 141 mmol/L (135-145); Total Protein 7.2 g/dL (6.5-8.0)
[2023-09-25 13:28] LABS: Free T4 (Free Thyroxine) 1.06 ng/dL (0.71-1.85)
== END 2023-09-25 11:43 | disposition home or self-care (01) ==
LOC: HO.XRAY 11:42
PROVIDERS: PCP Internal Medicine; Visit Provider Internal Medicine
DX: I49.9 Cardiac arrhythmia, unspecified (principal); M54.31 Sciatica, right side; R05.3 Chronic cough
CPT/HCPCS: 36415; 71046; 72100; 73502; 80053; 83735; 84100; 84439; 84443; 85025; 93005

== ENCOUNTER → 2023-09-25 11:58 | Outpatient (BNV) | payer MEDICARE, SELFPAY | PROVIDERS: PCP Internal Medicine; Visit Provider Internal Medicine | DX: R00.1 Bradycardia, unspecified (principal) | CPT/HCPCS: 93010 ==

== ENCOUNTER 2023-10-01 14:38 | Outpatient (AMB) | payer MEDICARE, SELFPAY ==
[2023-10-01 14:40] VITALS: BP 152/68; PULSE 49; O2SAT 97; BMI 28.7
--- NOTE | 2023-10-01 14:40 | MHC.PC.OV ---
Vital Signs 10/01/23 14:40 Height 5 ft 4 in Weight 167 lb BMI 28.7 BP 152/68 H Blood Pressure Location Lt brachial Position Sitting Pulse 49 L Pulse Source Pulse Oximeter Pulse Oximetry (%) 97 Oxygen Delivery Method Room Air Intake Visit Reasons: Sciatic Pain Teacher Assistant Required: No Allergies lisinopril Allergy (Mild, Verified 10/01/23 14:41) cough losartan Adverse Reaction (Intermediate, Verified 10/01/23 14:41) Cough Tobacco use date assessed: 10/01/23 Fall risk assessment: No Falls in past year Last assessed Fall Risk: 10/01/23 Dental Screening Dental Screen Date: 09/25/23 HPI Sciatic Pain HPI Details 78-year-old overweight male with diabetes mellitus coronary artery disease GERD hypercholesterolemia hypertension last seen earlier this month having right sciatic nerve pain and was sent to the chiropractor with no resolution. Patient has been having this pain for a few weeks now has had chiropractor see the patient but did not resolve. And now continues to have right gluteal pain radiating to the right knee. No swelling no cramps no redness no rash. [facility] Medical History (Updated 09/25/23 @ 11:32 by Mack Wade MD) Fatty liver Urinary incontinence Essential tremor Asthma Pulmonary nodule, right Hypertension Hypercholesterolemia GERD (gastroesophageal reflux disease) Coronary artery disease Type 2 diabetes mellitus with hyperglycemia Surgical History Hx of rotator cuff surgery Carpal tunnel syndrome Family History Father Pancreatic cancer Mother No problems noted. Maternal Aunt Cancer Brother Cancer Social History (Updated 04/11/23 @ 10:58 by Mack Wade MD) Household Members: Spouse Housing: House Alcohol intake: current Alcohol intake frequency: holidays/special occasions only Patient Tobacco Use Status: Former Tobacco user Tobacco use type: Cigarette Years Smoked: quit 1979 e-Cigarette/Vaping Use: Never Used Second Hand Smoke Exposure: No service: Yes Current occupational status: retired Cognitive needs: No Hearing needs: No Vision needs: Yes Questionnaire Thrive Questionnaire Date Thrive assessed: 09/25/23 AUDIT C Alcohol Use Questionnaire (AUDIT-C) 1. How often do you have a drink containing alcohol?: Monthly or less 2. How many drinks containing alcohol do you have on a typical day when you are drinking?: 1 or 2 3. How often do you have six or more drinks on one occasion?: Never Total Score: 1 Score Reviewed/Action Taken: Yes JESUS MANUEL-7 AMB Questionnaire JESUS MANUEL-7 Date JESUS MANUEL - 7 assessed: 09/25/23 Source: Developed by Drs. Scott Oviedo, Mattie Salmon, Kenneth Hammer and colleagues, with an educational hodan from [employer]. Physical exam (Primary Care) Vital Signs: Last Vital Signs Pulse 49 L 10/01/23 14:40 BP 152/68 H 10/01/23 14:40 Pulse Ox 97 10/01/23 14:40 Oxygen Delivery Method Room Air 10/01/23 14:40 BMI result Body Mass Index 28.7 Tobacco/Smoking Status: Tobacco use Status Tobacco use date assessed 10/01/23 10/01/23 14:41 Patient Tobacco Use Status Former Tobacco user 10/01/23 14:41 Tobacco use type Cigarette 10/01/23 14:41 e-Cigarette/Vaping Use Never Used 10/01/23 14:41 Thrive Assessment: Date of Thrive Assessment Date Thrive assessed 09/25/23 10/01/23 14:41 Const General: alert; No acute distress Eyes Conjunctivae: conjunctivae normal Resp Auscultation: clear to auscultation bilaterally Cardio Rate: regular rate Rhythm: regular rhythm GI Inspection: Yes normal to inspection Extrem Other: No swelling no redness right gluteal tenderness on palpation and right knee no swelling or redness but does complain about pain. General: Yes normal to inspection and No edema Assessment and Plan Assessment & Plan (1) Right sciatic nerve pain: Code(s): M54.31 - Sciatica, right side Plan: X-rays requested were done but the results are pending. Patient is advised to hold off work for the moment and pain medication prescribed. Medications: New tramadol 50 mg PO Q8H PRN 30 tabs 0RF pain M54.31 - Sciatica, right side Discontinued cyclobenzaprine Discontinued Reason: Doctor's Order 10 mg PO TID PRN 30 tabs 0RF muscle spasm M54.31 - Sciatica, right side Coding Level of Care Code Est Pt Level 3 (69496) Diagnoses Right sciatic nerve pain M54.31
== END 2023-10-01 15:20 | disposition home or self-care (01) ==
PROVIDERS: PCP Internal Medicine; Visit Provider Internal Medicine
DX: M54.31 Sciatica, right side (principal)
CPT/HCPCS: 99213

== ENCOUNTER 2023-10-16 11:20 | Outpatient (AMB) | payer MEDICARE, SELFPAY ==
[2023-10-16 11:22] VITALS: BP 150/74; PULSE 44; O2SAT 93; BMI 28.3
--- NOTE | 2023-10-16 11:22 | MHC.PC.OV ---
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 Athletic Equipment: Not Required per policy Accompanied by: Self / Same As Patient Allergies lisinopril Allergy (Mild, Verified 10/16/23 11:22) cough losartan Adverse Reaction (Intermediate, Verified 10/16/23 11:22) Cough Medication List - Last Reconciled 10/16/23 by Mack Wade, albuterol sulfate 90 mcg/actuation (Ventolin HFA) 1 inh inhalation QID PRN ascorbic acid (vitamin C) 500 mg PO aspirin (Adult Aspirin Regimen) 81 mg PO DAILY atorvastatin 10 mg PO DAILY blood pressure monitor (Blood Pressure Kit) As directed cetirizine (Zyrtec) 10 mg PO DAILY PRN cholecalciferol (vitamin D3) 25 mcg PO DAILY diclofenac sodium 75 mg PO BID PRN 90 days home hemoglobin A1C monitor As directed metformin 1,000 mg 2 times a day; 90 days metoprolol tartrate 12.5 mg (1/2 x 25 mg) PO BID multivitamin 1 tab PO DAILY mupirocin 2% 1 appl topical BID 15 days pantoprazole (Protonix) 40 mg PO DAILY tamsulosin 0.4 mg PO DAILY tramadol 50 mg PO Q8H PRN Tobacco use date assessed: 10/01/23 Fall risk assessment: No Falls in past year Last assessed Fall Risk: 10/16/23 Dental Screening Dental Screen Date: 09/25/23 HPI Right gluteal pain radiating to the right knee HPI Details 78-year-old male with the sciatic nerve pain that has been persisting for about 3 weeks patient was referred to orthopedics and stated finally getting better and wanted to go back to work.. Patient also has other medical problems from diabetes mellitus coronary artery disease GERD hypertension hypercholesterolemia BPH. Patient complains of the right knee pain has had this pain intermittently for long time and noted x-ray done May 2023 showing arthritis and chondrocalcinosis. Patient has had this injection with orthopedics in 8 years ago and has helped it. He will be seeing the Orthopedics in a few days. Patient has gone back to work and the right lower back is better. Meanwhile noted to have an elevated blood pressure question of pain question of blood pressure problem. Discussed that with the CAD the blood pressure needs to be controlled. Patient on metoprolol 12.5 mg twice a day limited with bradycardia. No syncopal episodes. Patient was advised to monitor blood pressure at home and record. [facility] Medical History (Updated 10/16/23 @ 11:49 by Mack Wade MD) Fatty liver Urinary incontinence Essential tremor Asthma Pulmonary nodule, right Hypertension Hypercholesterolemia GERD (gastroesophageal reflux disease) Coronary artery disease Type 2 diabetes mellitus with hyperglycemia Surgical History Hx of rotator cuff surgery Carpal tunnel syndrome Family History Father Pancreatic cancer Mother No problems noted. Maternal Aunt Cancer Brother Cancer Social History (Updated 04/11/23 @ 10:58 by Mack Wade MD) Household Members: Spouse Housing: House Alcohol intake: current Alcohol intake frequency: holidays/special occasions only Patient Tobacco Use Status: Former Tobacco user Tobacco use type: Cigarette Years Smoked: quit 1979 e-Cigarette/Vaping Use: Never Used Second Hand Smoke Exposure: No service: Yes Current occupational status: retired Cognitive needs: No Hearing needs: No Vision needs: Yes Questionnaire Thrive Questionnaire Date Thrive assessed: 09/25/23 JESUS MANUEL-7 AMB Questionnaire JESUS MANUEL-7 Date JESUS MANUEL - 7 assessed: 09/25/23 Source: Developed by Drs. Scott Oviedo, Mattie Salmon, Kenneth Hammer and colleagues, with an educational hodan from [employer]. Physical exam (Primary Care) Vital Signs: Last Vital Signs Pulse 44 L 10/16/23 11:22 BP 150/74 H 10/16/23 11:22 Pulse Ox 93 10/16/23 11:22 Oxygen Delivery Method Room Air 10/16/23 11:22 BMI result Body Mass Index 28.3 Tobacco/Smoking Status: Tobacco use Status Tobacco use date assessed 10/01/23 10/16/23 11:23 Patient Tobacco Use Status Former Tobacco user 10/16/23 11:23 Tobacco use type Cigarette 10/16/23 11:23 e-Cigarette/Vaping Use Never Used 05/09/24 11:23 Thrive Assessment: Date of Thrive Assessment Date Thrive assessed 09/25/23 10/16/23 11:23 Const General: alert; No acute distress Eyes Conjunctivae: conjunctivae normal Resp Auscultation: clear to auscultation bilaterally Cardio Rate: regular rate Rhythm: regular rhythm GI Inspection: Yes normal to inspection Extrem Other: Tender on the right knee patellar area Assessment and Plan Assessment & Plan (1) Right sciatic nerve pain: Code(s): M54.31 - Sciatica, right side Plan: Resolving (2) Type 2 diabetes mellitus with hyperglycemia: Comment: [facility] Code(s): E11.65 - Type 2 diabetes mellitus with hyperglycemia Qualifiers: Diabetes mellitus termite 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 On metformin only 12.15 goal is less than 7 (3) Coronary artery disease: Comment: Cath January 2017 moderate L PDA, echo January 2018 65% echo no change April 2019 stress test April 10 1019- Code(s): I25.10 - Atherosclerotic heart disease of [place] coronary artery without angina pectoris Qualifiers: Coronary Disease-Associated Artery/Lesion type: [place] artery [place] vs. transplanted heart: [place] heart Associated angina: without angina Qualified Code(s): I25.10 - Atherosclerotic heart disease of [place] coronary artery without angina pectoris Plan: Control the cholesterol, weight, blood pressure, diabetes continue on aspirin 81 mg once a day (4) GERD (gastroesophageal reflux disease): Code(s): K21.9 - Gastro-esophageal reflux disease without esophagitis Qualifiers: Esophagitis presence: without esophagitis Qualified Code(s): K21.9 - Gastro-esophageal reflux disease without esophagitis Plan: Avoid the foods that causes that usually spicy foods, tomato products, juices, coffee, soda and foods that your sensitive to. After eating do not lie down, allow 3-4 hours before in lie down. And keep the head of bed above 30 degrees to avoid the acid from going up. (5) Hypercholesterolemia: Code(s): E78.00 - Pure hypercholesterolemia, unspecified Plan: Avoid fried foods, chicken skin, eggs, butter margarine, pastries and meat. Be it pork or beef they have a lot of cholesterol LDL goal of less than 70 and triglyceride of less than 150 on atorvastatin 10 mg once a day blood work done January 2023 (6) Hypertension: Code(s): I10 - Essential (primary) hypertension Qualifiers: Hypertension type: essential hypertension Qualified Code(s): I10 - Essential (primary) hypertension Plan: Continue with blood pressure medication. Decrease salt intake and exercise on metoprolol 12.5 mg twice a day (7) BPH (benign prostatic hyperplasia): Code(s): N40.0 - Benign prostatic hyperplasia without lower urinary tract symptoms Qualifiers: Lower urinary tract symptom presence: symptoms present Lower urinary tract symptom detail: urinary frequency Qualified Code(s): N40.1 - Benign prostatic hyperplasia with lower urinary tract symptoms; R35.0 - Frequency of micturition Plan: Tamsulosin 0.4 mg once a day (8) Osteoarthritis of right knee: Code(s): M17.11 - Unilateral primary osteoarthritis, right knee Plan: Presently wearing a knee brace, discussed about techniques to help with the pain continue being active, glucosamine chondroitin, Voltaren gel, tramadol. Patient will be seeing Orthopedics Orders: Orders Complete Blood Count Auto Diff 3 Months E11.65 - Type 2 diabetes mellitus with hyperglycemia Comprehensive Met. Panel 3 Months E11.65 - Type 2 diabetes mellitus with hyperglycemia Lipid Panel 3 Months E11.65 - Type 2 diabetes mellitus with hyperglycemia, E78.00 - Pure hypercholesterolemia, unspecified Thyroid Stimulating Hormone 3 Months E11.65 - Type 2 diabetes mellitus with hyperglycemia Vitamin B12 and Folate 3 Months E11.65 - Type 2 diabetes mellitus with hyperglycemia Creatinine Urine 3 Months E11.65 - Type 2 diabetes mellitus with hyperglycemia Free T4 (Free Thyroxine) 3 Months E11.65 - Type 2 diabetes mellitus with hyperglycemia Hemoglobin A1c 3 Months E11.65 - Type 2 diabetes mellitus with hyperglycemia Microalbumin, Random (w Creat) 3 Months E11.65 - Type 2 diabetes mellitus with hyperglycemia Coding Level of Care Code Est Pt Level 4 (61266) Diagnoses Right sciatic nerve pain M54.31 Type 2 diabetes mellitus with hyperglycemia, without long-term current use of insulin E11.65 Diabetes mellitus usp insulin use: without termite treater use Coronary artery disease involving [place] coronary artery of [place] heart without angina pectoris I25.10 Coronary Disease-Associated Artery/Lesion type: [place] artery [place] vs. transplanted heart: [place] heart Associated angina: without angina Gastroesophageal reflux disease without esophagitis K21.9 Esophagitis presence: without esophagitis Hypercholesterolemia E78.00 Essential hypertension I10 Hypertension type: essential hypertension Benign prostatic hyperplasia with urinary frequency N40.1; R35.0 Lower urinary tract symptom presence: symptoms present Lower urinary tract symptom detail: urinary frequency Osteoarthritis of right knee M17.11
== END 2023-10-16 11:47 | disposition home or self-care (01) ==
PROVIDERS: PCP Internal Medicine; Visit Provider Internal Medicine
DX: M54.31 Sciatica, right side (principal); E11.65 Type 2 diabetes mellitus with hyperglycemia; I25.10 Atherosclerotic heart disease of native coronary artery without angina pectoris; K21.9 Gastro-esophageal reflux disease without esophagitis; E78.00 Pure hypercholesterolemia, unspecified; I10 Essential (primary) hypertension; N40.1 Benign prostatic hyperplasia with lower urinary tract symptoms; R35.0 Frequency of micturition; M17.11 Unilateral primary osteoarthritis, right knee
CPT/HCPCS: 99214

== ENCOUNTER 2023-10-24 10:51 | Outpatient (AMB) | payer MEDICARE, SELFPAY ==
[2023-10-24 10:57] VITALS: BMI 28.3
--- NOTE | 2023-10-24 10:57 | A.OFFVIS_ITS ---
Vital Signs 10/24/23 10:57 Height 5 ft 4 in Weight 165 lb BMI 28.3 Intake Visit Reasons: Newprob-RT Hip pain Intake Note: Bobby is a 78 year old male who presents today for a new problem visit with complaints of right gluteal pain that radiates to the right knee. Has seen Chiropractor with no relief . Patient reports that he had sciatica about one month ago, which is resloved but now he feels sorness in the upper glute and the knee. Allergies lisinopril Allergy (Mild, Verified 10/16/23 11:22) cough losartan Adverse Reaction (Intermediate, Verified 10/16/23 11:22) Cough HPI HPI Newprob-RT Hip pain: Details: This is a 78-year-old gentleman with right hip and knee pain. His hip pain is actually more his lumbosacral spine which extends into his greater trochanter. He denies numbness and tingling currently but does have a history of sciatica. His right knee is also bothering him with ambulation. This is mostly on the medial joint line. He denies injury. [facility] Medical History (Updated 10/16/23 @ 11:49 by Mack Wade MD) Fatty liver Urinary incontinence Essential tremor Asthma Pulmonary nodule, right Hypertension Hypercholesterolemia GERD (gastroesophageal reflux disease) Coronary artery disease Type 2 diabetes mellitus with hyperglycemia Surgical History Hx of rotator cuff surgery Carpal tunnel syndrome Family History Father Pancreatic cancer Mother No problems noted. Maternal Aunt Cancer Brother Cancer Social History (Updated 04/11/23 @ 10:58 by Mack Wade MD) Household Members: Spouse Housing: House Alcohol intake: current Alcohol intake frequency: holidays/special occasions only Patient Tobacco Use Status: Former Tobacco user Tobacco use type: Cigarette Years Smoked: quit 1979 e-Cigarette/Vaping Use: Never Used Second Hand Smoke Exposure: No service: Yes Current occupational status: retired Cognitive needs: No Hearing needs: No Vision needs: Yes Physical Exam Vital Signs: BMI result Body Mass Index 28.3 Const General: cooperative, healthy appearing, no acute distress, well developed and alert HEENT Head: Yes normal to inspection, Yes normocephalic and Yes atraumatic Mouth: moist mucous membranes Eyes General: appearance normal, both eyes and all related structures EOM: EOMs intact bilaterally Chest Other: no audible wheezing. Resp Other: No audible wheezing Effort & Inspection: normal respiratory effort Back/Spine/Pelvis Cervical Spine: normal cervical lordosis Skin General skin exam: no rashes or lesions noted Neuro General: no focal motor deficits Extrem Other: Tenderness to palpation medial joint line right knee. Trace effusion. Full range of motion. Psych Appearance: grossly normal and well kempt Mental Status: mental status grossly normal Speech and movement: Normal speech and movement present Affect: normal affect Attitude: cooperative Results Reviewed Results Reviewed: I personally reviewed relevant radiographs. Normal right hip range radiographs Mild right hip medial compartment osteoarthritis Assessment & Plan Assessment & Plan (1) Osteoarthritis of right knee: Code(s): M17.11 - Unilateral primary osteoarthritis, right knee Category: Medical Plan: This is a 78-year-old gentleman with mild to moderate osteoarthritis of the right knee. I discussed this with him. I injected his right knee today. I also discussed his poor gait mechanics and his history of sciatic nerve pain. A it is possible that the knee injection will help improve his gait and that his pain will be tolerable. If it has not I would recommend he return to see me. I wrote him a prescription for physical therapy. (2) Right sciatic nerve pain: Code(s): M54.31 - Sciatica, right side Category: Medical Plan: This is stable. A prescription for physical therapy was written. Orders: Orders PT Evaluation and Treatment Today M17.11 - Unilateral primary osteoarthritis, right knee, M54.31 - Sciatica, right side Coding Level of Care Code Est Pt Level 4 (82988) Diagnoses Osteoarthritis of right knee M17.11 Right sciatic nerve pain M54.31
== END 2023-10-24 11:34 | disposition home or self-care (01) ==
PROVIDERS: PCP Internal Medicine; Visit Provider Orthopaedic Surgery
DX: M17.11 Unilateral primary osteoarthritis, right knee (principal); M54.31 Sciatica, right side
CPT/HCPCS: 20610; 99214

== ENCOUNTER → 2023-10-24 10:51 | Outpatient (BNVA) | payer MEDICARE, SELFPAY | PROVIDERS: PCP Internal Medicine; Visit Provider Orthopaedic Surgery | DX: M17.11 Unilateral primary osteoarthritis, right knee (principal); M54.31 Sciatica, right side | CPT/HCPCS: 20610; 99212; J0665; J1100 ==

== ENCOUNTER 2023-10-31 09:15 | Outpatient (AMB) | payer MEDICARE, SELFPAY ==
[2023-10-31 09:16] VITALS: BP 130/58; PULSE 44; O2SAT 96; BMI 28.7
--- NOTE | 2023-10-31 09:16 | MHC.PC.OV ---
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 Last seen in earlier this month because of the sciatic nerve pain which has been resolving. Patient did see Orthopedics 10/24/2023 right gluteal pain to the right knee diagnosis of right knee osteoarthritis had injections done patient feels better on the knee as far as the lower back still bit painful but much better. Otherwise no nausea no vomiting no fevers no bowel bladder symptoms. Patient continues to follow-up with ophthalmology has been advised PreserVision to take. [facility] Medical History (Updated 10/16/23 @ 11:49 by Mack Wade MD) Fatty liver Urinary incontinence Essential tremor Asthma Pulmonary nodule, right Hypertension Hypercholesterolemia GERD (gastroesophageal reflux disease) Coronary artery disease Type 2 diabetes mellitus with hyperglycemia Surgical History Hx of rotator cuff surgery Carpal tunnel syndrome Family History Father Pancreatic cancer Mother No problems noted. Maternal Aunt Cancer Brother Cancer Social History (Updated 04/11/23 @ 10:58 by Mack Wade MD) Household Members: Spouse Housing: House Alcohol intake: current Alcohol intake frequency: holidays/special occasions only Patient Tobacco Use Status: Former Tobacco user Tobacco use type: Cigarette Years Smoked: quit 1979 e-Cigarette/Vaping Use: Never Used Second Hand Smoke Exposure: No service: Yes Current occupational status: retired Cognitive needs: No Hearing needs: No Vision needs: Yes Questionnaire Thrive Questionnaire Date Thrive assessed: 09/25/23 AUDIT C Alcohol Use Questionnaire (AUDIT-C) 1. How often do you have a drink containing alcohol?: Monthly or less 2. How many drinks containing alcohol do you have on a typical day when you are drinking?: 1 or 2 3. How often do you have six or more drinks on one occasion?: Never Total Score: 1 Score Reviewed/Action Taken: Yes JESUS MANUEL-7 AMB Questionnaire JESUS MANUEL-7 Date JESUS MANUEL - 7 assessed: 09/25/23 Source: Developed by Drs. Scott Oviedo, Mattie Salmon, Kenneth Hammer and colleagues, with an educational hodan from [employer]. Physical exam (Primary Care) Vital Signs: Last Vital Signs Pulse 44 L 10/31/23 09:16 BP 130/58 L 10/31/23 09:16 Pulse Ox 96 10/31/23 09:16 Oxygen Delivery Method Room Air 10/31/23 09:16 BMI result Body Mass Index 28.7 Tobacco/Smoking Status: Tobacco use Status Tobacco use date assessed 10/31/23 10/31/23 09:17 Patient Tobacco Use Status Former Tobacco user 10/31/23 09:17 Tobacco use type Cigarette 10/31/23 09:17 e-Cigarette/Vaping Use Never Used 10/31/23 09:17 Thrive Assessment: Date of Thrive Assessment Date Thrive assessed 09/25/23 10/31/23 09:17 Const General: alert; No acute distress Eyes Conjunctivae: conjunctivae normal Resp Auscultation: clear to auscultation bilaterally Cardio Rate: regular rate Rhythm: regular rhythm GI Inspection: Yes normal to inspection Extrem General: Yes normal to inspection and No edema Results AMB Hemoglobin A1c AMB Hemoglobin A1c 7.1 % Last Edit by LUIS Fairbanks on 10/31/23 09:42 Assessment and Plan Assessment & Plan (1) Type 2 diabetes mellitus with hyperglycemia: Comment: [facility] Code(s): E11.65 - Type 2 diabetes mellitus with hyperglycemia Qualifiers: Diabetes mellitus ocean transportation intermediary insulin use: without senior living use Qualified Code(s): E11.65 - Type 2 diabetes mellitus with hyperglycemia Plan: Decrease the amount of carbohydrate intake, pasta, bread, rice and potatoes are all sugar and that is aside from all the sweet stuff, remember that fruits are good but they are Sweet also. Hemoglobin A1c goal of less than 7.0. Patient on metformin presently (2) Coronary artery disease: Comment: Cath January 2017 moderate L PDA, echo January 2018 65% echo no change April 2019 stress test April 10 1019- Code(s): I25.10 - Atherosclerotic heart disease of [place] coronary artery without angina pectoris Qualifiers: Coronary Disease-Associated Artery/Lesion type: [place] artery [place] vs. transplanted heart: [place] heart Associated angina: without angina Qualified Code(s): I25.10 - Atherosclerotic heart disease of [place] coronary artery without angina pectoris Plan: Control the cholesterol, weight, blood pressure, diabetes continue with aspirin 81 mg once a day (3) Hypercholesterolemia: Code(s): E78.00 - Pure hypercholesterolemia, unspecified Plan: Avoid fried foods, chicken skin, eggs, butter margarine, pastries and meat. Be it pork or beef they have a lot of cholesterol atorvastatin 10 mg once a day will need retesting in January LDL goal of less than 100 and triglyceride of less than 150 (4) GERD (gastroesophageal reflux disease): Code(s): K21.9 - Gastro-esophageal reflux disease without esophagitis Qualifiers: Esophagitis presence: without esophagitis Qualified Code(s): K21.9 - Gastro-esophageal reflux disease without esophagitis Plan: Avoid the foods that causes that usually spicy foods, tomato products, juices, coffee, soda and foods that your sensitive to. After eating do not lie down, allow 3-4 hours before in lie down. And keep the head of bed above 30 degrees to avoid the acid from going up. (5) Hypertension: Code(s): I10 - Essential (primary) hypertension Qualifiers: Hypertension type: essential hypertension Qualified Code(s): I10 - Essential (primary) hypertension Plan: Continue with blood pressure medication. Decrease salt intake and exercise patient on metoprolol 12.5 mg twice a day (6) Fatty liver: Code(s): K76.0 - Fatty (change of) liver, not elsewhere classified Plan: Low-fat diet and exercise (7) Osteoarthritis of right knee: Code(s): M17.11 - Unilateral primary osteoarthritis, right knee Plan: Patient has met with ortho and had injections done. Orders: Orders AMB Hemoglobin A1c Today E11.65 - Type 2 diabetes mellitus with hyperglycemia Coding Level of Care Code Est Pt Level 4 (13949) Diagnoses Type 2 diabetes mellitus with hyperglycemia, without long-term current use of insulin E11.65 Diabetes mellitus ocean transportation intermediary insulin use: without ocean transportation intermediary use Coronary artery disease involving [place] coronary artery of [place] heart without angina pectoris I25.10 Coronary Disease-Associated Artery/Lesion type: [place] artery [place] vs. transplanted heart: [place] heart Associated angina: without angina Hypercholesterolemia E78.00 Gastroesophageal reflux disease without esophagitis K21.9 Esophagitis presence: without esophagitis Essential hypertension I10 Hypertension type: essential hypertension Fatty liver K76.0 Osteoarthritis of right knee M17.11
== END 2023-10-31 09:49 | disposition home or self-care (01) ==
PROVIDERS: PCP Internal Medicine; Visit Provider Internal Medicine
DX: E11.65 Type 2 diabetes mellitus with hyperglycemia (principal); I25.10 Atherosclerotic heart disease of native coronary artery without angina pectoris; E78.00 Pure hypercholesterolemia, unspecified; K21.9 Gastro-esophageal reflux disease without esophagitis; I10 Essential (primary) hypertension; K76.0 Fatty (change of) liver, not elsewhere classified; M17.11 Unilateral primary osteoarthritis, right knee
CPT/HCPCS: 83036; 99214

== ENCOUNTER 2023-11-27 10:00 | Outpatient (RCR) | payer MEDICARE, SELFPAY ==
--- NOTE | 2023-11-13 11:47 | MHC.PT.EP ---
[facility] [place] Office [place] Office [place] Office [address] [phone] F: [phone] F: [phone] F: [phone] F: [phone] Physical Therapy Plan of Care Date of Evaluation: 11/13/23 Date of Surgery: Diagnosis: sciatica R side Assessment: Patient is a 78 year old R handed male who presents with s/s consistent with sciatica R side. 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 Patient past medical history includes DM, CAD and GERD. Current impairments include pain, posture, ROM, flexibility, strength, activity tolerance and functional mobility. Functional limitations include decreased ability to walk, bend, lift, transfer, work in yard and be active. Patient is motivated with good rehab potential. Skilled PT will address impairments and functional limitations in order to achieve goals. Frequency and Duration: The patient will be seen 2x/week for 5 weeks Short Term Goals: I with HEP -2 weeks AROM rotation 75% and pain free b/l - 3 weeks TTP R piriformis absent - 3 weeks Equipment Operation Instructor Goals: Hip strength 4+/5 grossly - 5 weeks Oswestry 20% or less - 5 weeks Max pain with daily routine /10 - 5 weeks Treatment Plan: Modalities to reduce pain, spasms and effusion. Manual therapy to restore motion and function. Therapeutic exercise to improve strength and flexibility. Neuromuscular re-education for posture and balance. Therapeutic activities to return to functional activities of daily living. Electronically signed by: Colin Rock PT Please sign and return to therapist. Thank you for your referral.
--- NOTE | 2024-02-12 09:45 | MHC.PT.DC ---
[facility] [place] Office [place] Office [place] Office [address]cock [address] [phone] F: [phone] F: [phone] F: [phone] F: [phone] Physical Therapy Discharge Report Diagnosis: sciatica R side Date of Surgery: Date of Evaluation: 11/13/23 Date of Discharge: 12/04/23 Treatments to Date: 3 Cancellations to Date: No Shows to Date: Discharge Status: Patient Elected to Stop Discharge Summary: 11/27/23: pt progressing but with increased s/s since friday due to unknown reason. we held on progression today. 11/19/23: good response to HEP. progressed stretching and manual intervention. no adverse reactions. Patient is a 78 year old R handed male who presents with s/s consistent with sciatica R side. 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 Patient past medical history includes DM, CAD and GERD. Current impairments include pain, posture, ROM, flexibility, strength, activity tolerance and functional mobility. Functional limitations include decreased ability to walk, bend, lift, transfer, work in yard and be active. Patient is motivated with good rehab potential. Skilled PT will address impairments and functional limitations in order to achieve goals. Electronically signed by: Colin Rock, PT Please sign and return to therapist. Thank you for your referral.
== END 2024-02-12 09:45 | disposition home or self-care (01) ==
LOC: HO.PTCHIC 10:00
PROVIDERS: PCP Internal Medicine; Visit Provider Orthopaedic Surgery
DX: M17.11 Unilateral primary osteoarthritis, right knee (principal); M54.31 Sciatica, right side
CPT/HCPCS: 97110; 97140; 97162

== ENCOUNTER 2023-12-18 14:50 | Outpatient (AMB) | payer MEDICARE, SELFPAY ==
[2023-12-18 14:56] VITALS: BP 144/72; PULSE 86; O2SAT 97; BMI 28.2
--- NOTE | 2023-12-18 14:56 | A.OFFPC_ITS ---
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: No Allergies lisinopril Allergy (Mild, Verified 12/18/23 15:07) cough losartan Adverse Reaction (Intermediate, Verified 12/18/23 15:07) Cough Medication List - Last Reconciled 12/18/23 by Judy Flores PA-C albuterol sulfate 90 mcg/actuation (Ventolin HFA) 1 inh inhalation QID PRN ascorbic acid (vitamin C) 500 mg PO aspirin (Adult Aspirin Regimen) 81 mg PO DAILY atorvastatin 10 mg PO DAILY blood pressure monitor (Blood Pressure Kit) As directed cetirizine (Zyrtec) 10 mg PO DAILY PRN cholecalciferol (vitamin D3) 25 mcg PO DAILY diclofenac sodium 75 mg PO BID PRN 90 days home hemoglobin A1C monitor As directed metformin 1,000 mg 2 times a day; 90 days metoprolol tartrate 12.5 mg (1/2 x 25 mg) PO BID multivitamin 1 tab PO DAILY mupirocin 2% 1 appl topical BID 15 days pantoprazole (Protonix) 40 mg PO DAILY tamsulosin 0.4 mg PO DAILY tramadol 50 mg PO Q8H PRN Tobacco use date assessed: 10/31/23 Fall risk assessment: No Falls in past year Last assessed Fall Risk: 12/18/23 Dental Screening Dental Screen Date: 09/25/23 HPI Abdomen Pain, bloated HPI Details 78-year-old male with diabetes mellitus, coronary artery disease, GERD, hypercholesterolemia, hypertension, and BPH last seen 10/31/2023 coming in for acute visit.? And review of the notes patient was seen by [facility] for chronic low back pain with radiculopathy.? Recommended MRI of the lumbar spine and may consider epidural trial or trial of Lyrica. Patient was seen today by [facility] to discuss MRI results and was told no surgical intervention will be required. Today he tells us he has been having abdominal bloating and loss of appetite for the last few months. He no longer wants the food he previously used to enjoy and is eating smaller meals. He denies any abdominal pain after eating, nausea, vomiting, heartburn, or gas. He also denies any change in bowel habits and has had no constipation or diarrhea. He mentions he was taking Tramadol periodically for back pain but other than that has had no changes in medications or diet. Patient also mentions he periodically takes Tums with some relief. [facility] Medical History (Updated 12/18/23 @ 15:36 by Judy Flores PA-C) Fatty liver Urinary incontinence Essential tremor Asthma Pulmonary nodule, right Hypertension Hypercholesterolemia GERD (gastroesophageal reflux disease) Coronary artery disease Type 2 diabetes mellitus with hyperglycemia Surgical History Hx of rotator cuff surgery Carpal tunnel syndrome Family History Father Pancreatic cancer Mother No problems noted. Maternal Aunt Cancer Brother Cancer Social History (Updated 04/11/23 @ 10:58 by Mack Wade MD) Household Members: Spouse Housing: House Alcohol intake: current Alcohol intake frequency: holidays/special occasions only Patient Tobacco Use Status: Former Tobacco user Tobacco use type: Cigarette Years Smoked: quit 1979 e-Cigarette/Vaping Use: Never Used Second Hand Smoke Exposure: No service: Yes Current occupational status: retired Cognitive needs: No Hearing needs: No Vision needs: Yes Questionnaire Thrive Questionnaire Date Thrive assessed: 09/25/23 AUDIT C Alcohol Use Questionnaire (AUDIT-C) 1. How often do you have a drink containing alcohol?: Monthly or less 2. How many drinks containing alcohol do you have on a typical day when you are drinking?: 1 or 2 3. How often do you have six or more drinks on one occasion?: Never Total Score: 1 Score Reviewed/Action Taken: Yes JESUS MANUEL-7 AMB Questionnaire JESUS MANUEL-7 Date JESUS MANUEL - 7 assessed: 09/25/23 Source: Developed by Drs. Scott Oviedo, Mattie Salmon, Kenneth Hammer and colleagues, with an educational hodan from [employer]. Review of Systems Const Denies body aches, Denies chills, Denies fatigue, Denies fever(s), Reports poor appetite and Reports weight loss Eyes Reports no additional complaints ENT Denies dysphagia and Denies odynophagia Card Denies chest pain, Denies syncope and Denies dyspnea Resp Denies dyspnea GI Details: denies blood in the stool Denies abdominal pain, Denies belching, Reports bloating, Denies constipation, Denies dysphagia, Denies heartburn, Denies diarrhea, Denies nausea, Denies odynophagia and Denies vomiting Reports no additional complaints Musc Reports no additional complaints Skin/Breast Reports system reviewed and no additional complaints, except as documented Neuro Reports no additional complaints and Denies syncope Endo Denies fatigue Physical exam (Primary Care) Vital Signs: Last Vital Signs Pulse 86 12/18/23 14:56 BP 144/72 H 12/18/23 14:56 Pulse Ox 97 12/18/23 14:56 Oxygen Delivery Method Room Air 12/18/23 14:56 BMI result Body Mass Index 28.2 Tobacco/Smoking Status: Tobacco use Status Tobacco use date assessed 10/31/23 12/18/23 14:56 Patient Tobacco Use Status Former Tobacco user 12/18/23 14:56 Tobacco use type Cigarette 12/18/23 14:56 e-Cigarette/Vaping Use Never Used 12/18/23 14:56 Thrive Assessment: Date of Thrive Assessment Date Thrive assessed 09/25/23 12/18/23 14:56 Const General: alert and awake Orientation/consciousness: patient oriented x3 HENMT Head: Yes normocephalic Chest Chest palpation & inspection: normal inspection of the chest Resp Effort & Inspection: normal respiratory effort and no audible wheezes Auscultation: clear to auscultation bilaterally, no crackles, no wheezes and lung sounds not diminished Cardio Rate: regular rate Rhythm: regular rhythm GI Palpation (GI): Soft to palpation, not firm, nontender, no guarding, not rigid, no masses and no pulsatile masses Auscultation: normal bowel sounds and normoactive bowel sounds Rectal Exam - Male: Yes deferred Skin General skin exam: no rashes or lesions noted Rashes: no rashes Neuro General: patient oriented x3 and gait normal Extrem General: Yes normal to inspection, Yes full ROM and No edema Assessment and Plan Assessment & Plan (1) Abdominal bloating: Code(s): R14.0 - Abdominal distension (gaseous) Plan: Patient recently had MRI done through [facility] of lumbar spine and abdomen. We will request these results for further evaluation. At this time no other testing is indicated. We will trial simethicone for gas relief and bloating. Patient has follow up in 2 months if symptoms do not improve with simethicone we will consider referral to Gastroenterology. Patient agrees to follow up if he develops pain and is also educated on red flag symptoms and when to present to the ED. Medications: New simethicone (Gas Relief (simethicone)) 125 mg PO BID-QID PRN 30 caps 1RF abdominal distention Coding Level of Care Code Est Pt Level 4 (18257) Diagnoses Abdominal bloating R14.0
== END 2023-12-18 15:36 | disposition home or self-care (01) ==
PROVIDERS: PCP Internal Medicine
DX: R14.0 Abdominal distension (gaseous) (principal)
CPT/HCPCS: 99214

== ENCOUNTER 2024-01-30 08:06 | Outpatient (REF) | payer MEDICARE, SELFPAY ==
[2024-01-30 10:05] LABS: MANUAL DIFF FLAG NO
[2024-01-30 10:18] LABS: Basophils Absolute Auto 0.1 X10*3/uL (0.0-0.2); Basophils Percent Auto 0.7 % (0-2); Eosinophils Absolute Auto 0.2 X10*3/uL (0.0-0.4); Eosinophils Percent Auto 3.2 % (0-4); Hematocrit 41.3 % (42.0-52.0); Imm Gran Abs Auto 0.04 X10*3/uL (0.00-0.03); Imm Gran Pct Auto 0.6 % (0.0-0.4); Lymphocytes Absolute Auto 1.5 X10*3/uL (1.2-4.9); Lymphocytes Percent Auto 20.5 % (20-40); Mean Corpuscular HGB Conc 33.9 g/dl (31.0-36.0); Mean Corpuscular Hemoglobin 30.4 pg (27.0-33.0); Mean Corpuscular Volume 89.6 fL (80.0-98.0); Mean Platelet Volume 10.2 fL (9.4-12.4); Monocytes Absolute Auto 0.6 X10*3/uL (0.1-1.2); Monocytes Percent Auto 8.5 % (2-11); Neutrophils Absolute Auto 4.7 x10*3/uL (2.0-8.3); Neutrophils Percent Auto 66.5 % (45-73); Platelet Count 213 X10*3/uL (160-400); Red Blood Count 4.61 X10*6/uL (4.60-5.80); Red Cell Distribution Width 12.8 % (11.0-16.0); White Blood Count 7.1 X10*3/uL (4.8-10.8)
[2024-01-30 10:29] LABS: Estimated Average Glucose 128 mg/dL; Hemoglobin A1c % 6.1 % (<6.0)
[2024-01-30 10:55] LABS: Alanine Aminotransferase 46 U/L (0-40); Albumin Level 4.1 g/dL (3.5-5.0); Alkaline Phosphatase 69 U/L (39-117); Anion Gap 13 (12-20); Aspartate Amino Transferase 26 U/L (5-37); Bilirubin Total 0.4 mg/dL (0.0-1.0); Blood Urea Nitrogen 14 mg/dL (9-16); Calcium 9.1 mg/dL (8.4-10.2); Carbon Dioxide 27 mmol/L (22-29); Chloride 108 mmol/L (96-108); Cholesterol 94 mg/dL (<200); Estimated Glomerular Filt Rate > 60; Glucose Random 142 mg/dL (60-115); HDL Cholesterol 43 mg/dL (>40); LDL Cholesterol Calculated 37 mg/dL (<100); Potassium 3.9 mmol/L (3.3-5.1); Sodium 144 mmol/L (135-145); Total Protein 6.6 g/dL (6.5-8.0); Triglycerides 70 mg/dL (<150)
[2024-01-30 10:59] LABS: Free T4 (Free Thyroxine) 1.09 ng/dL (0.71-1.85); Thyroid Stimulating Hormone 0.93 uIU/mL (0.32-4.0)
[2024-01-30 11:03] LABS: Creatinine Urine 106.85 mg/dL; Microalbum/Creatinine Ratio Ur 8.4 ug/mg cr (<30)
[2024-01-30 11:09] LABS: Folate 14.7 ng/mL (> or = 4.0); Vitamin B12 217 pg/mL (200-900)
== END 2024-01-30 08:07 | disposition home or self-care (01) ==
LOC: HO.HMGCLDS 08:06
PROVIDERS: PCP Internal Medicine; Visit Provider Internal Medicine
DX: E11.65 Type 2 diabetes mellitus with hyperglycemia (principal); E78.00 Pure hypercholesterolemia, unspecified
CPT/HCPCS: 36415; 80053; 80061; 82043; 82570; 82607; 82746; 83036; 84439; 84443; 85025

== ENCOUNTER 2024-02-19 15:50 | Outpatient (AMB) | payer MEDICARE, SELFPAY ==
--- NOTE | 2024-02-19 15:55 | MHC.PC.OV ---
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 Accompanied by: Self / Same As Patient Allergies lisinopril Allergy (Mild, Verified 02/19/24 15:57) cough losartan Adverse Reaction (Intermediate, Verified 02/19/24 15:57) Cough Medication List - Last Reconciled 02/19/24 by Mack Wade MD albuterol sulfate 90 mcg/actuation (Ventolin HFA) 1 inh inhalation QID PRN ascorbic acid (vitamin C) 500 mg PO aspirin (Adult Aspirin Regimen) 81 mg PO DAILY atorvastatin 10 mg PO DAILY blood pressure monitor (Blood Pressure Kit) As directed cetirizine (Zyrtec) 10 mg PO DAILY PRN cholecalciferol (vitamin D3) 25 mcg PO DAILY diclofenac sodium 75 mg PO BID PRN 90 days home hemoglobin A1C monitor As directed metformin 1,000 mg 2 times a day; 90 days metoprolol tartrate 12.5 mg (1/2 x 25 mg) PO BID multivitamin 1 tab PO DAILY mupirocin 2% 1 appl topical BID 15 days pantoprazole (Protonix) 40 mg PO DAILY simethicone (Gas Relief (simethicone)) 125 mg PO BID-QID PRN tamsulosin 0.4 mg PO DAILY tramadol 50 mg PO Q8H PRN Tobacco use date assessed: 10/31/23 Fall risk assessment: No Falls in past year Last assessed Fall Risk: 02/19/24 Dental Screening Dental Screen Date: 09/25/23 HPI 3 Month F/U HPI Details 78-year-old overweight male with a history of diabetes mellitus coronary artery disease GERD hypercholesterolemia hypertension urinary retention BPH osteoarthritis asthma coming in for follow-up. Last seen in December 2023 for abdominal bloating. Review of the notes has seen [facility] for low back pain diagnosis of spondylosis conservative treatment noted B12 low PFSH Medical History (Updated 02/19/24 @ 16:47 by Mack Wade MD) Fatty liver Urinary incontinence Essential tremor Asthma Pulmonary nodule, right Hypertension Hypercholesterolemia GERD (gastroesophageal reflux disease) Coronary artery disease Type 2 diabetes mellitus with hyperglycemia Surgical History Hx of rotator cuff surgery Carpal tunnel syndrome Family History Father Pancreatic cancer Mother No problems noted. Maternal Aunt Cancer Brother Cancer Social History (Updated 04/11/23 @ 10:58 by Mack Wade MD) Household Members: Spouse Housing: House Alcohol intake: current Alcohol intake frequency: holidays/special occasions only Patient Tobacco Use Status: Former Tobacco user Tobacco use type: Cigarette Years Smoked: quit 1979 e-Cigarette/Vaping Use: Never Used Second Hand Smoke Exposure: No service: Yes Current occupational status: retired Cognitive needs: No Hearing needs: No Vision needs: Yes Questionnaire PHQ-9 Over the last 2 weeks, how often have you been bothered by any of the following problems? 1. Little interest or pleasure in doing things: not at all 2. Feeling down, depressed, or hopeless: not at all 3. Trouble falling or staying asleep, or sleeping too much: not at all 4. Feeling tired or having little energy: not at all 5. Poor appetite or overeating: not at all 6. Feeling bad about yourself - or that you are a failure or have let yourself or your family down: not at all 7. Trouble concentrating on things, such as reading the newspaper or watching television: not at all 8. Moving or speaking so slowly that other people could have noticed. Or the opposite - being so fidgety or restless that you have been moving around a lot more than usual: not at all 9. Thoughts that you would be better off or of hurting yourself in some way: not at all Total score: 0 Depression Screening Interpretation: Negative Depression Screening Done: Yes Source: Developed by Drs. Scott Oviedo, Mattie Salmon, Kenneth Hammer and colleagues, with an educational hodan from [employer]. Thrive Questionnaire Date Thrive assessed: 09/25/23 AUDIT C Alcohol Use Questionnaire (AUDIT-C) 1. How often do you have a drink containing alcohol?: Monthly or less 2. How many drinks containing alcohol do you have on a typical day when you are drinking?: 1 or 2 3. How often do you have six or more drinks on one occasion?: Never Total Score: 1 Score Reviewed/Action Taken: Yes JESUS MANUEL-7 AMB Questionnaire JESUS MANUEL-7 Date JESUS MANUEL - 7 assessed: 09/25/23 Source: Developed by Drs. Scott Oviedo, Mattie Salmon, Kenneth Hammer and colleagues, with an educational hodan from [employer]. Physical exam (Primary Care) Vital Signs: Last Vital Signs Pulse 60 02/19/24 15:56 BP 140/78 H 02/19/24 15:56 Pulse Ox 93 02/19/24 15:56 Oxygen Delivery Method Room Air 02/19/24 15:56 BMI result Body Mass Index 27.8 Tobacco/Smoking Status: Tobacco use Status Tobacco use date assessed 10/31/23 02/19/24 16:00 Patient Tobacco Use Status Former Tobacco user 02/19/24 16:00 Tobacco use type Cigarette 02/19/24 16:00 e-Cigarette/Vaping Use Never Used 02/19/24 16:00 PHQ-9: PHQ-9 Score PHQ-9: Total score 0 02/19/24 16:00 Depression Screening Interpretation: Negative Thrive Assessment: Date of Thrive Assessment Date Thrive assessed 09/25/23 02/19/24 16:00 Const General: alert; No acute distress Eyes Conjunctivae: conjunctivae normal Resp Auscultation: clear to auscultation bilaterally Cardio Rate: regular rate Rhythm: regular rhythm GI Inspection: Yes normal to inspection Extrem General: Yes normal to inspection and No edema Assessment and Plan Assessment & Plan (1) Type 2 diabetes mellitus with hyperglycemia: Comment: [facility] Code(s): E11.65 - Type 2 diabetes mellitus with hyperglycemia Qualifiers: Diabetes mellitus nursing home insulin use: without nursing home use Qualified Code(s): E11.65 - Type 2 diabetes mellitus with hyperglycemia Plan: Decrease the amount of carbohydrate intake, pasta, bread, rice and potatoes are all sugar and that is aside from all the sweet stuff, remember that fruits are good but they are Sweet also. Hemoglobin A1c goal of less than 7.0 diet controlled (2) Coronary artery disease: Comment: Cath January 2017 moderate L PDA, echo January 2018 65% echo no change April 2019 stress test April 10 1019- Code(s): I25.10 - Atherosclerotic heart disease of [place] coronary artery without angina pectoris Qualifiers: Coronary Disease-Associated Artery/Lesion type: [place] artery [place] vs. transplanted heart: [place] heart Associated angina: without angina Qualified Code(s): I25.10 - Atherosclerotic heart disease of [place] coronary artery without angina pectoris Plan: Control the cholesterol, weight, blood pressure, diabetes continue with aspirin 81 mg once a day (3) GERD (gastroesophageal reflux disease): Code(s): K21.9 - Gastro-esophageal reflux disease without esophagitis Qualifiers: Esophagitis presence: without esophagitis Qualified Code(s): K21.9 - Gastro-esophageal reflux disease without esophagitis Plan: Avoid the foods that causes that usually spicy foods, tomato products, juices, coffee, soda and foods that your sensitive to. After eating do not lie down, allow 3-4 hours before in lie down. And keep the head of bed above 30 degrees to avoid the acid from going up. (4) Hypercholesterolemia: Code(s): E78.00 - Pure hypercholesterolemia, unspecified Plan: Avoid fried foods, chicken skin, eggs, butter margarine, pastries and meat. Be it pork or beef they have a lot of cholesterol LDL goal of less than 70 and triglyceride of less than 150 on atorvastatin 10 mg once a day (5) Hypertension: Code(s): I10 - Essential (primary) hypertension Qualifiers: Hypertension type: essential hypertension Qualified Code(s): I10 - Essential (primary) hypertension Plan: Continue with blood pressure medication. Decrease salt intake and exercise patient on metoprolol 12.5 mg twice a day (6) BPH (benign prostatic hyperplasia): Code(s): N40.0 - Benign prostatic hyperplasia without lower urinary tract symptoms Qualifiers: Lower urinary tract symptom presence: symptoms present Lower urinary tract symptom detail: urinary frequency Qualified Code(s): N40.1 - Benign prostatic hyperplasia with lower urinary tract symptoms; R35.0 - Frequency of micturition Plan: Continue with tamsulosin (7) Asthma: Code(s): J45.909 - Unspecified asthma, uncomplicated Plan: Continue with albuterol inhaler (8) Lumbar spondylosis: Code(s): M47.816 - Spondylosis without myelopathy or radiculopathy, lumbar region Coding Level of Care Code Est Pt Level 4 (23305) Complex EM visit Add On G2211 Diagnoses Type 2 diabetes mellitus with hyperglycemia, without long-term current use of insulin E11.65 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 transplanted heart: [place] heart Associated angina: without angina Gastroesophageal reflux disease without esophagitis K21.9 Esophagitis presence: without esophagitis Hypercholesterolemia E78.00 Essential hypertension I10 Hypertension type: essential hypertension Benign prostatic hyperplasia with urinary frequency N40.1; R35.0 Lower urinary tract symptom presence: symptoms present Lower urinary tract symptom detail: urinary frequency Asthma J45.909 Lumbar spondylosis M47.816 Additional Codes PHQ-9 - 23986 - PHQ-9 Billing: ([id number])
[2024-02-19 15:56] VITALS: BP 140/78; PULSE 60; O2SAT 93; BMI 27.8
[2024-02-19 16:51] VITALS: BP 138/60
== END 2024-02-19 17:01 | disposition home or self-care (01) ==
PROVIDERS: PCP Internal Medicine; Visit Provider Internal Medicine
DX: E11.65 Type 2 diabetes mellitus with hyperglycemia (principal); I25.10 Atherosclerotic heart disease of native coronary artery without angina pectoris; K21.9 Gastro-esophageal reflux disease without esophagitis; E78.00 Pure hypercholesterolemia, unspecified; I10 Essential (primary) hypertension; N40.1 Benign prostatic hyperplasia with lower urinary tract symptoms; R35.0 Frequency of micturition; J45.909 Unspecified asthma, uncomplicated; M47.816 Spondylosis without myelopathy or radiculopathy, lumbar region
CPT/HCPCS: 99214; G2211

== ENCOUNTER 2024-04-09 08:51 | Outpatient (AMB) | payer MEDICARE, SELFPAY ==
--- NOTE | 2024-04-09 09:18 | MHC.OFFWIV ---
Intake Vital Signs 04/09/24 09:23 Height 5 ft 4 in Weight 165 lb BMI 28.3 BP 120/80 Blood Pressure Location Lt brachial Position Sitting Pulse 70 Pulse Source Pulse Oximeter Temp 98.6 F Temp Source Oral Pulse Oximetry (%) 98 Oxygen Delivery Method Room Air Intake Visit Reasons: EP Cough for 2 weeks Intake Note: Patient here for cough that has been present for 2 weeks. Patient Tobacco Use Status: Former Tobacco user Allergies lisinopril Allergy (Mild, Verified 04/09/24 09:24) cough losartan Adverse Reaction (Intermediate, Verified 04/09/24 09:24) Cough Do you need a note to return to daycare/school/sports/work: No HPI HPI Comments History of Present Illness Details This is a 78-year-old male who presented to the walk-in clinic complaining of persistent productive cough x2 weeks. He states his cough is occasionally dry but occasionally productive of thick, white yellow sputum. He denies any associated upper respiratory infection symptoms such as nasal/sinus congestion/rhinorrhea, sore throat, myalgias/arthralgias, etc. He denies any associated fever/chills. He denies any chest pain or shortness of breath. [facility] Medical History (Updated 02/19/24 @ 16:47 by Mack Wade MD) Fatty liver Urinary incontinence Essential tremor Asthma Pulmonary nodule, right Hypertension Hypercholesterolemia GERD (gastroesophageal reflux disease) Coronary artery disease Type 2 diabetes mellitus with hyperglycemia Surgical History Hx of rotator cuff surgery Carpal tunnel syndrome Family History Father Pancreatic cancer Mother No problems noted. Maternal Aunt Cancer Brother Cancer Social History (Updated 04/11/23 @ 10:58 by Mack Wade MD) Household Members: Spouse Housing: House Alcohol intake: current Alcohol intake frequency: holidays/special occasions only Patient Tobacco Use Status: Former Tobacco user Tobacco use type: Cigarette Years Smoked: quit 1979 e-Cigarette/Vaping Use: Never Used Second Hand Smoke Exposure: No service: Yes Current occupational status: retired Cognitive needs: No Hearing needs: No Vision needs: Yes Review of Systems Const All systems reviewed & are unremarkable except as noted in HPI and below Reports no additional complaints Eyes Reports no additional complaints ENT Reports no additional complaints Card Reports no additional complaints Resp Reports no additional complaints GI Reports no additional complaints Reports no additional complaints Musc Reports no additional complaints Skin/Breast Reports system reviewed and no additional complaints, except as documented Neuro Reports no additional complaints Psych Reports no additional complaints Endo Reports no additional complaints Paulo/Lymph Reports no additional complaints Aller/Immun Reports no additional complaints Physical Exam Vital Signs: Last Vital Signs Temp 98.6 F 04/09/24 09:23 Pulse 70 04/09/24 09:23 BP 120/80 04/09/24 09:23 Pulse Ox 98 04/09/24 09:23 Oxygen Delivery Method Room Air 04/09/24 09:23 BMI result Body Mass Index 28.3 Const Other: Vital signs reviewed. Constitutional: Non-toxic appearing. No acute distress. Well-developed and well-nourished. HEENT: Normocephalic and atraumatic. Skin: Warm and dry. No rashes or lesions noted. Neck: Full and painless range of motion. No cervical lymphadenopathy. Cardio: Regular rate and rhythm. No murmurs, gallops, or rubs. No lower extremity edema. No JVD. Trace pitting edema bilateral lower extremities. Pulmonary: No respiratory distress. No accessory muscle usage. Clear to auscultation bilaterally without wheezing, crackles, or rhonchi. Gastrointestinal: Soft, nontender, and nondistended in all 4 quadrants. Musculoskeletal: Normal range of motion in joints throughout the body. No deformity or other signs of injury. Neuro: Alert and oriented x4. Cranial nerves 2-12 grossly intact. No focal deficits appreciated. Psych: Normal mood and affect. Assessment & Plan Assessment & Plan (1) Acute cough: Code(s): R05.1 - Acute cough Plan: This is a 78-year-old male who presented to the walk-in clinic complaining of a persistent productive cough x2 weeks. He denies any associated chest pain/shortness of breath or fever/chills. A chest x-ray was obtained, which was negative for acute cardiopulmonary process. Patient sent home on p.o. azithromycin 500 mg today followed by 250 mg daily x4 days as well as p.o. benzonatate 100 mg 2-3 times daily as needed for cough. He was instructed to follow-up here or proceed to the emergency room if he were to develop fever/chills, shortness of breath, or worsening sputum production/purulence. Patient verbalizes understanding and he is in agreement with the plan. Orders: Orders XR chest 2V Today R05.9 - Cough, unspecified Medications: New azithromycin For 250 mg dose pack: take 500 mg today (day 1), then 250 mg for 4 days (days 2-5) PO 6 tabs 0RF benzonatate 100 mg PO BID-TID PRN 14 caps 0RF cough Coding Level of Care Code Est Pt Level 3 (37442) Diagnoses Acute cough R05.1
[2024-04-09 09:23] VITALS: BP 120/80; PULSE 70; TEMP 37; O2SAT 98; BMI 28.3
== END 2024-04-09 10:17 | disposition home or self-care (01) ==
PROVIDERS: PCP Internal Medicine; Visit Provider Physician Assistant Medical
DX: R05.1 Acute cough (principal)

== ENCOUNTER 2024-04-09 08:51 | Outpatient (REF) | payer MEDICARE, SELFPAY ==
--- NOTE | ~2024-04-09 | XR_ITS ---
EXAMINATION: XR CHEST CLINICAL INFORMATION: Cough COMPARISON: X-ray dated September 25, 2023 TECHNIQUE: 2 views of the chest were obtained. FINDINGS: Submitted for interpretation on April 16, 2024. Patchy opacity in the right perihilar region. No pneumothorax. No pleural effusion. Heart silhouette demonstrates a round apex. Multilevel thoracic spondylosis. There is a 1.2 cm gap at the right acromioclavicular joint. XR/XR chest 2V IMPRESSION: Airspace disease versus lymphadenopathy, right pulmonary hilum. Recommend CT chest with contrast. Probable osteotomy/postsurgical changes, right acromioclavicular joint. Electronically signed by: Matthew Carmona MD 04/16/2024 03:12 PM FADUMO LAZO
== END 2024-04-09 08:52 | disposition home or self-care (01) ==
LOC: HO.HMGCX 08:51
PROVIDERS: PCP Internal Medicine; Visit Provider Physician Assistant Medical
DX: R05.1 Acute cough (principal)
CPT/HCPCS: 71046; 99212

== ENCOUNTER → 2024-04-09 09:45 | Outpatient (BNV) | payer MEDICARE, SELFPAY | PROVIDERS: PCP Internal Medicine; Visit Provider Radiology Diagnostic Radiology | DX: R05.9 Cough, unspecified (principal) | CPT/HCPCS: 71046 ==

== ENCOUNTER 2024-04-13 09:46 | Outpatient (AMB) | payer MEDICARE, SELFPAY ==
[2024-04-13 09:53] VITALS: BP 134/70; PULSE 63; O2SAT 94; BMI 27.6
--- NOTE | 2024-04-13 09:53 | A.OFFPC_ITS ---
Vital Signs 04/13/24 09:53 Height 5 ft 4 in Weight 73.028 kg BMI 27.6 BP 134/70 Blood Pressure Location Lt brachial Position Sitting Pulse 63 Pulse Source Pulse Oximeter Pulse Oximetry (%) 94 Oxygen Delivery Method Room Air Intake Visit Reasons: PE Allergies lisinopril Allergy (Mild, Verified 04/13/24 09:54) cough losartan Adverse Reaction (Intermediate, Verified 04/13/24 09:54) Cough Medication List - Last Reconciled 04/13/24 by Mack Wade MD ascorbic acid (vitamin C) 500 mg PO aspirin (Adult Aspirin Regimen) 81 mg PO DAILY atorvastatin 10 mg PO DAILY azithromycin For 250 mg dose pack: take 500 mg today (day 1), then 250 mg for 4 days (days 2-5) PO benzonatate 100 mg PO BID-TID PRN blood pressure monitor (Blood Pressure Kit) As directed cetirizine (Zyrtec) 10 mg PO DAILY PRN cholecalciferol (vitamin D3) 25 mcg PO DAILY cyanocobalamin (vitamin B-12) 1,000 mcg PO DAILY diclofenac sodium 75 mg PO BID PRN 90 days home hemoglobin A1C monitor As directed metformin 1,000 mg 2 times a day; 90 days metoprolol tartrate 12.5 mg (1/2 x 25 mg) PO BID multivitamin 1 tab PO DAILY mupirocin 2% 1 appl topical BID 15 days tamsulosin 0.4 mg PO DAILY tramadol 50 mg PO Q8H PRN Tobacco use date assessed: 10/31/23 Fall risk assessment: No Falls in past year Last assessed Fall Risk: 04/13/24 Dental Screening Dental Screen Date: 09/25/23 HPI PE HPI Details 78-year-old overweight male with diabete s mellitus coronary artery disease GERD hypercholesterolemia hypertension BPH and asthma last seen in February 19 2024. Patient is here for physical exam last colonoscopy September 2016 in no more. Review of the notes had urgent care visit April 22 cough di agnosis was given Zithromax with x-ray request . has hearing aid. [facility] Medical History (Updated 04/13/24 @ 11:44 by Mack Wade MD) Fatty liver Urinary incontinence Essential tremor Asthma Pulmonary nodule, right Hypertension Hypercholesterolemia GERD (gastroesophageal reflux disease) Coronary artery disease Type 2 diabetes mellitus with hyperglycemia Surgical History Hx of rotator cuff surgery Carpal tunnel syndrome Family History Father Pancreatic cancer Mother No problems noted. Maternal Aunt Cancer Brother Cancer Social History (Updated 04/13/24 @ 11:31 by Mack Wade MD) Household Members: Spouse Housing: House Alcohol intake: current Alcohol intake frequency: holidays/special occasions only Comment: oncea month 1 drink Patient Tobacco Use Status: Former Tobacco user Tobacco use type: Cigarette Years Smoked: quit 1979 e-Cigarette/Vaping Use: Never Used Second Hand Smoke Exposure: No service: Yes Current occupational status: retired Cognitive needs: No Hearing needs: No Vision needs: Yes Questionnaire PHQ-9 Over the last 2 weeks, how often have you been bothered by any of the following problems? 1. Little interest or pleasure in doing things: not at all 2. Feeling down, depressed, or hopeless: not at all 3. Trouble falling or staying asleep, or sleeping too much: not at all 4. Feeling tired or having little energy: several days 5. Poor appetite or overeating: several days 6. Feeling bad about yourself - or that you are a failure or have let yourself or your family down: not at all 7. Trouble concentrating on things, such as reading the newspaper or watching television: not at all 8. Moving or speaking so slowly that other people could have noticed. Or the opposite - being so fidgety or restless that you have been moving around a lot more than usual: not at all 9. Thoughts that you would be better off or of hurting yourself in some way: not at all Total score: 2 Depression Screening Interpretation: Negative Depression Screening Done: Yes Source: Developed by Drs. Scott Oviedo, Mattie Salmon, Kenneth Hammer and colleagues, with an educational hodan from [employer]. Thrive Questionnaire Date Thrive assessed: 04/13/24 I am a: Patient What is your living situation today?: I have a steady place to live Within the past 12 months, did the food you bought not last and you didn't have the money to get more?: Often true Within the past 12 months, did you worry whether your food would run out before you got money to buy more?: Never true Do you have trouble paying for medicines?: No Do you have trouble getting transportation to medical appointments?: No Do you have trouble paying your heating and electricity bill?: No Do you have trouble taking care of your child, family member or friend?: No Do you have trouble with day-to-day activities such as bathing, preparing meals, shopping, managing finances, etc.?: No Are you currently unemployed and looking for a job?: No Are you interested in more education?: No Please select the resources that you would like help with: None Currently or been in a relationship where the following occur: I choose not to answer THRIVE Score: 1 AUDIT C Alcohol Use Questionnaire (AUDIT-C) 1. How often do you have a drink containing alcohol?: Monthly or less 2. How many drinks containing alcohol do you have on a typical day when you are drinking?: 1 or 2 3. How often do you have six or more drinks on one occasion?: Never Total Score: 1 Score Reviewed/Action Taken: Yes JESUS MANUEL-7 AMB Questionnaire JESUS MANUEL-7 Date JESUS MANUEL - 7 assessed: 09/25/23 Source: Developed by Drs. Scott Oviedo, Mattie Salmon, Kenneth Hammer and colleagues, with an educational hodan from [employer]. Review of Systems Const Denies poor appetite and Denies weakness Eyes Denies no additional complaints ENT Reports Normal hearing present, Denies dizziness, Denies nasal congestion, Denies tinnitus and Denies sore throat Card Denies chest pain, Denies syncope, Denies rapid heart rate and Denies dyspnea Resp Denies cough and Denies dyspnea GI Denies change in stool character, Reports constipation, Denies diarrhea, Denies nausea and Denies vomiting Denies dysuria and Denies urinary frequency Neuro Reports Normal hearing present, Denies confusion, Denies dizziness, Denies syncope and Denies weakness Psych Denies confusion Physical exam (Primary Care) Vital Signs: Last Vital Signs Pulse 63 04/13/24 09:53 BP 134/70 04/13/24 09:53 Pulse Ox 94 04/13/24 09:53 Oxygen Delivery Method Room Air 04/13/24 09:53 BMI result Body Mass Index 27.6 Tobacco/Smoking Status: Tobacco use Status Tobacco use date assessed 10/31/23 04/13/24 09:54 Patient Tobacco Use Status Former Tobacco user 04/13/24 11:31 Tobacco use type Cigarette 04/13/24 11:31 e-Cigarette/Vaping Use Never Used 04/13/24 11:31 PHQ-9: PHQ-9 Score PHQ-9: Total score 2 04/13/24 11:27 Depression Screening Interpretation: Negative Thrive Assessment: Date of Thrive Assessment Date Thrive assessed 04/13/24 04/13/24 09:54 Currently or been in a relationship where the following occur: I choose not to answer Const General: No confusion Orientation/consciousness: No confusion HENMT Head: Yes normocephalic Ears: external ears normal and TM's normal bilaterally Face and sinus: Yes normal facial exam Mouth: moist mucous membranes Throat: Yes tonsils normal Eyes Conjunctivae: conjunctivae normal Pupils: Equal, round and reactive pupils present and Pupil accommodation reflex normal Direct Ophthalmoscopy: normal light reflex Neck Neck: No lymphadenopathy Thyroid: Thyroid normal Chest Chest palpation & inspection: normal inspection of the chest Resp Effort & Inspection: normal respiratory effort and no audible wheezes Auscultation: clear to auscultation bilaterally, no crackles, no wheezes and lung sounds not diminished Cardio Rate: regular rate Rhythm: regular rhythm Peripheral pulses: radial pulses present and dorsalis pedis present GI Palpation (GI): no masses Auscultation: normal bowel sounds and normoactive bowel sounds Rectal Exam - Male: Yes deferred Skin General skin exam: no rashes or lesions noted Rashes: no rashes Neuro General: No confusion Cranial nerves: Yes Equal, round and reactive pupils present and Yes Normal hearing present Cognition (Neuro): normal cognition Gait exam (Neuro): Normal gait present Motor exam (neuro): 5/5 motor strength present throughout Deep tendon reflexes (DTR's): Right brachioradialis reflex intensity grade: 2+, Left brachioradialis reflex intensity grade: 2+, Right patellar reflex intensity grade: 2+ and Left patellar reflex intensity grade: 2+ Extrem General: No edema Office Procedures Flu Questionnaire Does the patient have a severe egg allergy?: No Does the patient have severe life threatening allergies?: No Does the patient have a fever or illness today?: No Has the patient ever had Guillain-Wyanet Syndrome?: No Has the patient ever had any past reaction to a flu shot?: No Results AMB Hemoglobin A1c AMB Hemoglobin A1c 6.1 % Last Edit by Michelle Walker CMA on 04/13/24 11 :28 Immunizations Fluarix Triv [id number] (PF) 45 mcg (15 mcg x 3)/0.5 mL IM syringe Performing Provider: Mack Wade MD [facility] Administered by: Michelle Walker CMA on 04/13/24 11:57 Dose Route Admin Location Dispensed Lot Number Expiration Date NDC Director Pharmaceutical 0.5 mL IM Left Deltoid 0.5 mL [id number] 12/06/24 [id number] [employer] VIS Given Date VIS Provided VIS Publication Date 04/13/24 Single Vaccine 21 Eligibility Eligibility Date Funding Source Not [facility] Eligible 04/13/24 Private Results Reviewed Results Reviewed: Laboratory Last Values Hgb A1c (Clinic) 6.1 % (4.0-6.0) H 04/13/24 11:08 Coding Level of Care Code Est Pt Prev Care >65y(41854) Diagnoses Annual physical exam Z00.00 Type 2 diabetes mellitus with hyperglycemia, without long-term current use of insulin E11.65 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 transplanted heart: tribe heart Gastroesophageal reflux disease without esophagitis K21.9 Esophagitis presence: without esophagitis Hypercholesterolemia E78.00 Essential hypertension I10 Hypertension type: essential hypertension Fatty liver K76.0 Benign prostatic hyperplasia with urinary frequency N40.1; R35.0 Lower urinary tract symptom detail: urinary frequency Lower urinary tract symptom presence: symptoms present Frequency of micturition R35.0 Left leg numbness R20.0 Allergic rhinitis, unspecified seasonality, unspecified trigger J30.9 Allergic rhinitis seasonality: unspecified Allergic rhinitis trigger: unspecified Additional Codes PHQ-9 - 30447 - PHQ-9 Billing: ([id number]) Assessment & Plan Assessment & Plan (1) Annual physical exam: Code(s): Z00.00 - Encounter for general adult medical examination without abnormal findings Category: Medical Plan: Patient is advised to eat healthy, keep well hydrated, keep active and have adequate sleep. 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 Hemoglobin A1c goal of less than 7.0. Patient is on metformin only (3) Coronary artery disease: Comment: Cath January 2017 moderate L PDA, echo January 2018 65% echo no change April 2019 stress test April 10 1019- Code(s): I25.10 - Atherosclerotic heart disease of tribe coronary artery without angina pectoris Category: Medical Qualifiers: Associated angina: without angina Coronary Disease-Associated Artery/Lesion type: tribe artery [place] vs. transplanted heart: tribe heart Qualified Code(s): I25.10 - Atherosclerotic heart disease of tribe coronary artery without angina pectoris Plan: Control the cholesterol, weight, blood pressure, diabetes on aspirin 81 mg once a day (4) GERD (gastroesophageal reflux disease): Code(s): K21.9 - Gastro-esophageal reflux disease without esophagitis Category: Medical Qualifiers: Esophagitis presence: without esophagitis Qualified Code(s): K21.9 - Gastro-esophageal reflux disease without esophagitis Plan: Avoid the foods that causes that usually spicy foods, tomato products, juices, coffee, soda and foods that your sensitive to. After eating do not lie down, allow 3-4 hours before in lie down. And keep the head of bed above 30 degrees to avoid the acid from going up. (5) Hypercholesterolemia: Code(s): E78.00 - Pure hypercholesterolemia, unspecified Category: Medical Plan: Avoid fried foods, chicken skin, eggs, butter margarine, pastries and meat. Be it pork or beef they have a lot of cholesterol LDL goal of less than 70 and triglyceride of less than 150 on atorvastatin 10 mg once a day and the last blood work was done in 01/27/2024 (6) Hypertension: Code(s): I10 - Essential (primary) hypertension Category: Medical Qualifiers: Hypertension type: essential hypertension Qualified Code(s): I10 - Essential (primary) hypertension Plan: Continue with blood pressure medication. Decrease salt intake and exercise metoprolol 12.5 mg twice a day (7) Fatty liver: Code(s): K76.0 - Fatty (change of) liver, not elsewhere classified Category: Medical Plan: Low-fat diet and exercise (8) BPH (benign prostatic hyperplasia): Code(s): N40.0 - Benign prostatic hyperplasia without lower urinary tract symptoms Category: Medical Qualifiers: Lower urinary tract symptom detail: urinary frequency Lower urinary tract symptom presence: symptoms present Qualified Code(s): N40.1 - Benign prostatic hyperplasia with lower urinary tract symptoms; R35.0 - Frequency of micturition Plan: Continue with tamsulosin. (9) Frequency of micturition: Code(s): R35.0 - Frequency of micturition Category: Medical Plan: declined work up for now (10) Left leg numbness: Code(s): R20.0 - Anesthesia of skin Category: Medical Plan: discussed about nerve conduction test ? radiculopathy but lower back is good (11) Allergic rhinitis: Code(s): J30.9 - Allergic rhinitis, unspecified Category: Medical Qualifiers: Allergic rhinitis seasonality: unspecified Allergic rhinitis trigger: unspecified Qualified Code(s): J30.9 - Allergic rhinitis, unspecified Plan: advsied to take allergy med. does have cat at home Orders: Orders Influenza [id number] Immunization Today Z23 - Encounter for immunization AMB Hemoglobin A1c Today Z13.9 - Encounter for screening, unspecified Medications: New Fluarix Triv [id number] (PF) (flu vacc [id number] 6mos up(PF)) 0.5 mL IM ONCE 0.5 mL 0RF NS Z23 - Encounter for immunization Refilled benzonatate 100 mg PO BID-TID PRN 30 caps 0RF cough
== END 2024-04-13 12:02 | disposition home or self-care (01) ==
LOC: HO.HMCH 09:47
PROVIDERS: PCP Internal Medicine; Visit Provider Internal Medicine
DX: Z00.00 Encounter for general adult medical examination without abnormal findings (principal); E11.65 Type 2 diabetes mellitus with hyperglycemia; I25.10 Atherosclerotic heart disease of native coronary artery without angina pectoris; K21.9 Gastro-esophageal reflux disease without esophagitis; E78.00 Pure hypercholesterolemia, unspecified; I10 Essential (primary) hypertension; K76.0 Fatty (change of) liver, not elsewhere classified; N40.1 Benign prostatic hyperplasia with lower urinary tract symptoms; R35.0 Frequency of micturition; R20.0 Anesthesia of skin; J30.9 Allergic rhinitis, unspecified; Z23 Encounter for immunization; Z13.9 Encounter for screening, unspecified

== ENCOUNTER → 2024-04-13 09:46 | Outpatient (BNVA) | payer MEDICARE, SELFPAY | PROVIDERS: PCP Internal Medicine; Visit Provider Internal Medicine | DX: Z00.00 Encounter for general adult medical examination without abnormal findings (principal); Z23 Encounter for immunization; E11.65 Type 2 diabetes mellitus with hyperglycemia; I25.10 Atherosclerotic heart disease of native coronary artery without angina pectoris; K21.9 Gastro-esophageal reflux disease without esophagitis; E78.00 Pure hypercholesterolemia, unspecified; I10 Essential (primary) hypertension; K76.0 Fatty (change of) liver, not elsewhere classified; N40.1 Benign prostatic hyperplasia with lower urinary tract symptoms; R35.0 Frequency of micturition; R20.0 Anesthesia of skin; J30.9 Allergic rhinitis, unspecified | CPT/HCPCS: 83036; 90471; 90656; 96127; 99397 ==

== ENCOUNTER 2024-05-17 09:01 | Outpatient (REF) | payer MEDICARE, SELFPAY ==
[2024-05-17 10:12] LABS: MANUAL DIFF FLAG NO
[2024-05-17 10:33] LABS: Basophils Absolute Auto 0.1 X10*3/uL (0.0-0.2); Basophils Percent Auto 0.6 % (0-2); Eosinophils Absolute Auto 0.4 X10*3/uL (0.0-0.4); Hematocrit 41.7 % (42.0-52.0); Hemoglobin 14.2 g/dl (14.0-18.0); Imm Gran Abs Auto 0.06 X10*3/uL (0.00-0.03); Imm Gran Pct Auto 0.7 % (0.0-0.4); Lymphocytes Absolute Auto 1.5 X10*3/uL (1.2-4.9); Lymphocytes Percent Auto 17.8 % (20-40); Mean Corpuscular HGB Conc 34.1 g/dl (31.0-36.0); Mean Corpuscular Hemoglobin 30.1 pg (27.0-33.0); Mean Corpuscular Volume 88.3 fL (80.0-98.0); Mean Platelet Volume 9.8 fL (9.4-12.4); Monocytes Absolute Auto 0.7 X10*3/uL (0.1-1.2); Monocytes Percent Auto 7.7 % (2-11); Neutrophils Absolute Auto 5.8 x10*3/uL (2.0-8.3); Neutrophils Percent Auto 68.2 % (45-73); Platelet Count 224 X10*3/uL (160-400); Red Blood Count 4.72 X10*6/uL (4.60-5.80); Red Cell Distribution Width 12.9 % (11.0-16.0); White Blood Count 8.5 X10*3/uL (4.8-10.8)
[2024-05-17 11:19] LABS: Free T4 (Free Thyroxine) 1.13 ng/dL (0.71-1.85); Thyroid Stimulating Hormone 0.71 uIU/mL (0.32-4.0)
[2024-05-17 11:20] LABS: Anion Gap 14 (12-20)
[2024-05-17 11:25] LABS: Alanine Aminotransferase 46 U/L (0-40); Albumin Level 4.1 g/dL (3.5-5.0); Alkaline Phosphatase 65 U/L (39-117); Aspartate Amino Transferase 39 U/L (5-37); Bilirubin Total 0.4 mg/dL (0.0-1.0); Blood Urea Nitrogen 15 mg/dL (9-16); Calcium 9.2 mg/dL (8.4-10.2); Carbon Dioxide 26 mmol/L (22-29); Chloride 104 mmol/L (96-108); Estimated Glomerular Filt Rate > 60; Glucose Random 99 mg/dL (60-115); Magnesium 1.5 mg/dL (1.6-2.6); Potassium 3.9 mmol/L (3.3-5.1); Sodium 140 mmol/L (135-145); Total Protein 6.8 g/dL (6.5-8.0)
[2024-05-17 13:52] LABS: Appearance Urine Clear; Color Urine Yellow; Glucose Urine UA Negative (Negative); Leukocyte Esterase Urine Trace (Negative); Nitrite Urine Negative (Negative); PH 5.5 (5.0-9.0); Specific Gravity - Urine 1.015 (1.005-1.025); UMIC TRIGGER UA YES; Urine Blood Negative (Negative); Urine Ketones Negative (Negative); Urine Protein Negative (Neg-Trace)
[2024-05-17 13:58] LABS: Bacteria Urine None Seen (None Seen); Hyaline Casts Urine 0-2 /LPF (0-2); RBC Urine 0-2 /HPF (0-2); Squamous Epithelial Cell Urine 0-2 /HPF (0-2); WBC Urine 0-5 /HPF (0-5)
== END 2024-05-17 09:02 | disposition home or self-care (01) ==
LOC: HO.HMGCLDS 09:01
PROVIDERS: PCP Internal Medicine; Visit Provider Internal Medicine
DX: J98.4 Other disorders of lung (principal)
CPT/HCPCS: 36415; 80053; 81001; 83735; 84439; 84443; 85025

== ENCOUNTER 2024-08-04 11:20 | Outpatient (AMB) | payer MEDICARE, SELFPAY ==
[2024-08-04 11:22] VITALS: BP 140/76; PULSE 43; O2SAT 95; BMI 27.8
--- NOTE | 2024-08-04 11:22 | MHC.PC.OV ---
Vital Signs 08/04/24 11:22 Height 5 ft 4 in Weight 162 lb BMI 27.8 BP 140/76 H Blood Pressure Location Lt brachial Position Sitting Pulse 43 L Pulse Source Pulse Oximeter Pulse Oximetry (%) 95 Oxygen Delivery Method Room Air Intake Visit Reasons: Pain on side, Allergies lisinopril Allergy (Mild, Verified 08/04/24 11:23) cough losartan Adverse Reaction (Intermediate, Verified 08/04/24 11:23) Cough Tobacco use date assessed: 08/04/24 Fall risk assessment: No Falls in past year Last assessed Fall Risk: 08/04/24 Dental Screening Dental Screen Date: 08/04/24 Did you have a dental visit in the last 12 months?: Yes Did you have a dental problem in the last 6 months where you did not have access to dental care?: No Was dental information given to patient?: Patient has dentist HPI Pain on side, HPI Details RUQ pain , no nausea, 4 days go, no fevers, no rash PFSH Medical History (Updated 08/04/24 @ 11:59 by Mack Wade MD) Fatty liver Urinary incontinence Essential tremor Asthma Pulmonary nodule, right Hypertension Hypercholesterolemia GERD (gastroesophageal reflux disease) Coronary artery disease Type 2 diabetes mellitus with hyperglycemia Surgical History Hx of rotator cuff surgery Carpal tunnel syndrome Family History Father Pancreatic cancer Mother No problems noted. Maternal Aunt Cancer Brother Cancer Social History (Updated 04/13/24 @ 11:31 by Mack Wade MD) Household Members: Spouse Housing: House Alcohol intake: current Alcohol intake frequency: holidays/special occasions only Comment: oncea month 1 drink Patient Tobacco Use Status: Former Tobacco user Tobacco use type: Cigarette Years Smoked: quit 1979 e-Cigarette/Vaping Use: Never Used Second Hand Smoke Exposure: No service: Yes Current occupational status: retired Cognitive needs: No Hearing needs: No Vision needs: Yes Questionnaire PHQ-9 Over the last 2 weeks, how often have you been bothered by any of the following problems? 1. Little interest or pleasure in doing things: not at all 2. Feeling down, depressed, or hopeless: not at all 3. Trouble falling or staying asleep, or sleeping too much: not at all 4. Feeling tired or having little energy: several days 5. Poor appetite or overeating: several days 6. Feeling bad about yourself - or that you are a failure or have let yourself or your family down: not at all 7. Trouble concentrating on things, such as reading the newspaper or watching television: not at all 8. Moving or speaking so slowly that other people could have noticed. Or the opposite - being so fidgety or restless that you have been moving around a lot more than usual: not at all 9. Thoughts that you would be better off or of hurting yourself in some way: not at all Total score: 2 Depression Screening Interpretation: Negative Depression Screening Done: Yes Source: Developed by Drs. Scott Oviedo, Mattie Salmon, Kenneth Hammer and colleagues, with an educational hodan from [employer]. Thrive Questionnaire Date Thrive assessed: 08/04/24 AUDIT C Alcohol Use Questionnaire (AUDIT-C) 1. How often do you have a drink containing alcohol?: Monthly or less 2. How many drinks containing alcohol do you have on a typical day when you are drinking?: 1 or 2 3. How often do you have six or more drinks on one occasion?: Never Total Score: 1 Score Reviewed/Action Taken: Yes JESUS MANUEL-7 AMB Questionnaire JESUS MANUEL-7 Date JESUS MANUEL - 7 assessed: 08/04/24 Feeling nervous, anxious, or on edge: 0 = Not at all Not being able to stop or control worryin = Not at all Worrying too much about different things: 0 = Not at all Trouble relaxin = Not at all Being so restless that it is hard to sit still: 0 = Not at all Becoming easily annoyed or irritable: 0 = Not at all Feeling afraid as if something awful might happen: 0 = Not at all Total JESUS MANUEL-7 score (0-4 normal; 5-9 mild; 10-14 moderate; 15-21 severe): 0 Source: Developed by Drs. Scott Oviedo, Mattie Salmon, Kenneth Hammer and colleagues, with an educational hodan from [employer]. Physical exam (Primary Care) Vital Signs: Last Vital Signs Pulse 43 L 08/04/24 11:22 BP 140/76 H 02/26/25 11:22 Pulse Ox 95 08/04/24 11:22 Oxygen Delivery Method Room Air 08/04/24 11:22 BMI result Body Mass Index 27.8 Tobacco/Smoking Status: Tobacco use Status Tobacco use date assessed 08/04/24 08/04/24 11:31 Patient Tobacco Use Status Former Tobacco user 08/04/24 11:31 Tobacco use type Cigarette 08/04/24 11:31 e-Cigarette/Vaping Use Never Used 08/04/24 11:31 PHQ-9: PHQ-9 Score PHQ-9: Total score 2 08/04/24 11:31 Depression Screening Interpretation: Negative Thrive Assessment: Date of Thrive Assessment Date Thrive assessed 08/04/24 08/04/24 11:31 Const General: alert; No acute distress Eyes Conjunctivae: conjunctivae normal Resp Auscultation: clear to auscultation bilaterally Cardio Rate: regular rate Rhythm: regular rhythm GI Other: Tender on right upper quadrant with no lesions no rashes no redness no rebound and no guarding. Extrem General: Yes normal to inspection and No edema Coding Level of Care Code Est Pt Level 4 (60078) Diagnoses Chronic cough R05.3 Type 2 diabetes mellitus with hyperglycemia, without long-term current use of insulin E11.65 Diabetes mellitus intermodal customer service insulin use: without fpc use Coronary artery disease involving [place] coronary artery of ass[place] heart without angina pectoris I25.10 Coronary Disease-Associated Artery/Lesion type: [place] artery [place] vs. transplanted heart: [place] heart Associated angina: without angina Gastroesophageal reflux disease without esophagitis K21.9 Esophagitis presence: without esophagitis Hypercholesterolemia E78.00 Essential hypertension I10 Hypertension type: essential hypertension RUQ abdominal pain R10.11 Hypomagnesemia E83.42 Assessment & Plan Assessment & Plan (1) Chronic cough: Code(s): R05.3 - Chronic cough Category: Medical Plan: Patient has been follow-up with Pulmonary. Patient has been advised to get a CT scan done of the chest for follow-up. (2) Type 2 diabetes mellitus with hyperglycemia: Comment: [facility] Code(s): E11.65 - Type 2 diabetes mellitus with hyperglycemia Category: Medical Qualifiers: Diabetes mellitus intermodal customer service insulin use: without intermodal customer service use Qualified Code(s): E11.65 - Type 2 diabetes mellitus with hyperglycemia Plan: Decrease the amount of carbohydrate intake, pasta, bread, rice and potatoes are all sugar and that is aside from all the sweet stuff, remember that fruits are good but they are Sweet also. Hemoglobin A1c goal of less than 7.0 patient is on metformin (3) Coronary artery disease: Comment: Cath January 2017 moderate L PDA, echo January 2018 65% echo no change April 2019 stress test April 10 1019- Code(s): I25.10 - Atherosclerotic heart disease of [place] coronary artery without angina pectoris Category: Medical Qualifiers: Coronary Disease-Associated Artery/Lesion type: [place] artery [place] vs. transplanted heart: [place] si[place] heart Associated angina: without angina Qualified Code(s): I25.10 - Atherosclerotic heart disease of [place] coronary artery without angina pectoris Plan: Control the cholesterol, weight, blood pressure, diabetes on aspirin 81 mg once a (4) GERD (gastroesophageal reflux disease): Code(s): K21.9 - Gastro-esophageal reflux disease without esophagitis Category: Medical Qualifiers: Esophagitis presence: without esophagitis Qualified Code(s): K21.9 - Gastro-esophageal reflux disease without esophagitis Plan: Avoid the foods that causes that usually spicy foods, tomato products, juices, coffee, soda and foods that your sensitive to. After eating do not lie down, allow 3-4 hours before in lie down. And keep the head of bed above 30 degrees to avoid the acid from going up. (5) Hypercholesterolemia: Code(s): E78.00 - Pure hypercholesterolemia, unspecified Category: Medical Plan: Avoid fried foods, chicken skin, eggs, butter margarine, pastries and meat. Be it pork or beef they have a lot of cholesterol LDL goal of less than 70 and triglyceride of less than 150 patient on atorvastatin 10 mg once a day (6) Hypertension: Code(s): I10 - Essential (primary) hypertension Category: Medical Qualifiers: Hypertension type: essential hypertension Qualified Code(s): I10 - Essential (primary) hypertension Plan: Continue with blood pressure medication. Decrease salt intake and exercise patient is on metoprolol 12.5 mg twice a day (7) RUQ abdominal pain: Code(s): R10.11 - Right upper quadrant pain Category: Medical Plan: Ultrasound of the abdomen requested and advised to get (8) Hypomagnesemia: Code(s): E83.42 - Hypomagnesemia Category: Medical Plan: Request for blood work again Plan History of Present Illness The patient is a 79-year-old male presenting with abdominal pain localized to the right side, with intermittent tenderness and occasional radiation to the back. Diarrhea has been noted but without correlation to dietary intake. No nausea, vomiting, fever, rash, or other significant symptoms are present, which eliminates the likelihood of shingles. Relevant history includes controlled Diabetes Mellitus, Coronary Artery Disease, Gastroesophageal Reflux Disease, and a past medical record indicating low magnesium and mild chronic elevation in liver function tests. The absence of new, significant physical findings during examination and the patient's current medication regimen suggests a stable chronic condition except for the suspected gallbladder involvement, for which further investigative procedures such as an abdominal ultrasound are proposed. Health Maintenance - Advised to maintain a low-fat diet in light of suspected gallbladder issues. - Discussion regarding ongoing vaccinations, including COVID-19, with guidance to avoid exposure to sick individuals. - Blood glucose and cholesterol management through current medications. - Reminder of the significance of current medications controlling chronic conditions such as hypertension, hypercholesterolemia, and diabetes. Social History - No detailed social history was provided or discussed in the conversation. Review of Systems - Gastrointestinal: Reports intermittent right-sided abdominal pain and occasional diarrhea. Denies any nausea or vomiting. - General: Denies fever. - Respiratory: Denies similar reports; under care of hand buffing wheel former. - Skin: Denies rash or redness. - No other systems were discussed in the conversation. Physical Exam - Gastrointestinal- No pain on palpation noted in multiple abdominal regions except slight tenderness near gallbladder area. - Pulmonary- Clear on auscultation, with full breath sounds confirming no acute distress. - Cardiovascular- Observed occasional extrasystoles. - Musculoskeletal- No distinct tenderness or unusual findings on performed maneuvers. Results - Labs: Hemoglobin A1c previously recorded at 6.1. Magnesium level was low at 1.5 in past testing. Liver function slightly elevated. Blood sugar last measured at 99. - Diagnostic Imaging: Planned abdominal ultrasound suggested for gallbladder assessment. Previous CAT scan was canceled. Plan Based on the assessment indicative of a possible gallbladder issue, I have recommended an ultrasound to further evaluate the structure and function of the gallbladder. The low-fat diet is suggested to manage potential biliary colic associated with cholelithiasis. The continuation of current medications for managing diabetes, coronary artery disease, reflux, and hypercholesterolemia is advised. Blood pressure control maintenance with metoprolol is essential, and ongoing monitoring of electrolytes, especially magnesium, is warranted due to previous low levels. This necessitates vigilance in dietary habits to mitigate symptomatic progression. Revisiting laboratory tests may provide further insight into chronic liver function status. An awareness strategy related to seasonal illnesses is outlined, and the patient was reminded of the importance of vaccination and safe health practices. Patient was informed and verbally consented to the use of an ambient scribe for clinic note documentation during this visit. Discussion Notes During our consultation, I discussed with the patient the potential of gallbladder involvement related to the abdominal pain experienced. An ultrasound was recommended, and the rationale was explained as wanting to discern the presence of gallstones or gallbladder dysfunction. We reviewed the importance of dietary management, focusing on reducing fat intake to prevent exacerbating gallbladder-related pain. I reiterated the advantages and necessity of medication compliance for existing conditions, underscoring preventive strategies. The impending tests, blood work, and the need to monitor abnormal findings were clarified. I informed him about returning if symptoms persisted or worsened and emphasized maintaining awareness during the ongoing flu season. Patient Instructions - Schedule and attend the abdominal ultrasound for gallbladder evaluation as soon as possible. - Follow a low-fat diet to help manage gallbladder symptoms. - Continue current medications as prescribed for diabetes, coronary artery disease, and gastrointestinal issues. - Monitor any changes or escalation in symptoms that could indicate a worsening condition. - Ensure to discuss the outcomes of the diagnostic tests in the upcoming follow-up. - Adhere to health precautions, especially during flu season, and avoid contact with individuals displaying symptoms of illness. Orders: Orders Complete Blood Count Auto Diff Today R10.11 - Right upper quadrant pain Comprehensive Met. Panel Today R10.11 - Right upper quadrant pain Hemoglobin A1c Today R10.11 - Right upper quadrant pain Thyroid Stimulating Hormone Today R10.11 - Right upper quadrant pain US abdomen complete Today R10.11 - Right upper quadrant pain, R79.89 - Other specified abnormal findings of blood chemistry Magnesium Today R10.11 - Right upper quadrant pain Free T4 (Free Thyroxine) Today R10.11 - Right upper quadrant pain UA CC w/rflx Micro + Cult Today R10.11 - Right upper quadrant pain, R30.0 - Dysuria
--- OUTSIDE RECORDS SUMMARY | 2024-08-04 14:15 | XMS_ITS ---
Author Name [facility] [facility] [place] Address [address] [place] [address] Support Name Relationship Address Phone DAYTONLATONIA Next of Kin [address] [place] [address] DAYTONDARRENLATONIA Emergency Contact [address] [place] [address] Insurance Providers: All historical and current Section Date Range: From patient's date of to the date document was created. This section includes the names of all active insurance providers for the patient. Insurance Provider Type of Coverage Plan Name Start of Policy Coverage End of Policy Coverage Group Number Member ID Insurance Provider's Telephone Number Policy Souza's Name Patient's Relationship to Policy Souza [facility] (WNR) MEDICARE ADVANTAGE MCR (WN) Jun 09, 2020 [id number] DAYTON,DO NALD PATIENT [facility] (WNR) MEDICARE ADVANTAGE MCR (WNR) Jun 09, 2023 [id number] DAYTON,DO NALD PATIENT [facility] (WNR) MEDICARE ADVANTAGE MCR (WNR) Jun 09, 2020 [id number] [phone] DAYTON,DO NALD PATIENT Selected Encounter This section includes the information on record at [place] for the Encounter. Date/Time Encounter Type Encounter Description Reason Provider Source October 28, 2023 10:30 AM HEARING AID REPAIR/MODIFYIN G AUDIOLOGY ICD-10-CM Z46.1 Encounter for fitting and adjustment of hearing aid SUDEEP PEREIRA Encounter Template Text not used by [place] Assessments - Encounter Diagnoses This section includes the primary and secondary diagnoses documented for the Encounter. Date/Time Primary/Secondary Diagnosis Diagnosis Name Provider Source October 28, 2023 10:47 AM PRIMARY Encounter for fitting and adjustment of hearing aid SUDEEP PEREIRA [facility] October 28, 2023 10:47 AM SECONDARY Sensorineural hearing loss, bilateral SUDEEP PEREIRA [facility] Plan of Treatment: Future Appointments (+ 6 months) and Future Tests (+/- 45 days) The Plan of Treatment section includes future care activities for the patient from all [place] treatmentfacilities. This section includes future appointments and future orders which are active, pending or scheduled. Future Appointments This section includes appointments that were scheduled to occur 6 months from the date of the Encounter, up to a maximum of 20 appointments. The data comes from all [place] treatment facilities. Appointment Date/Time Appointment Type Appointme nt Facility Name Apr 06, 2024 10:00 AM AMBULATORY - REHAB MEDICIN E [facility] Encounter Notes: All associated encounter notes This section contains the clinical notes associated to the Encounter. Date/Time Encounter Note(s) Provider Source October 28, 2023 07:56 AM AUDIOLOGY E & M NO TE: [facility] TITLE: AUDIOLOGY CLINIC STANDARD TITLE: AUDIOLOGY E & M NOTE DATE OF NOTE: OCTOBER 28, 2023@07:56 ENTRY DATE: OCTOBER 28, 2023@07:56:25 AUTHOR: SUDEEP PEREIRA EXP COSIGNER: URGENCY: STATUS: COMPLETED Dx CODE: Z46.1-Encounter for Fitting/Adjusting Hearing Aid(s); H90.3- Sensorineural Hearing Loss, Bilateral APPOINTMENT TYPE: Hearing Aid Check HISTORY/BACKGROUND: was seen for a hearing aid follow-up appointment, unaccompanied. He was fit on 08/19/22 with ERIN Valdes. He scheduled today's appointment noting the right hearing aid has been intermittent. Both hearing aids were cleaned and checked. Microphone covers and wax guards were replaced. Both hearing aids are in good working condition and intermittency could not be replicated in the office today. Right neurology stroke physician was replaced and [place] was advised that if the problem continues the right aid should be sent out for repair. PLAN/RECOMMENDATION(S): 1. Follow up as needed. Patient Education Education provided on the following topics: Hearing aids Education provided to: P Response to Education: VU Christine Patient P Family F Significant Other SO Verbalizes Understanding VU Returns Demonstration RD Performs Independently PI Lacks Comprehension LC Refused Education RE Not Applicable NA /cody/ ZANDER ALEXANDRE, CCC-A STAFF OBIEE ARCHITECT Signed: 10/28/2023 10:48 SUDEEP PEREIRA [facility]
--- OUTSIDE RECORDS SUMMARY | 2024-08-04 14:15 | XMS_ITS ---
Author Organization [facility] sebastian [place] Address [address] [facility] [place] [address] Care Team Providers Care Bookkeeping Assistant Name Role Phone Mack Wade Primary Care Provider Unavailabl e Black, Lorene Unavailable [phone] Allergies Allergen (clinical drug ingredient) Drug/Non Drug Allergy documented on EMR Reaction Allergy Type Onset Date Status lisinopril Lisinopril Unknown Drug Allergy Activ e REASON FOR VISIT At Risk Footcare, Painful nail(s) aggrevated by shoes and causing difficulty standing/walking., Skin problem(s) Medications Medication SIG (Take, Route, Frequency, Duration) Notes Start Date End Date Status Aleve 220 MG 1 tablet as needed Orally every 12 hrs Not-Taking Lisinopril 10 MG 1 tablet Orally Once a day Not-Taking Ciclopirox Olamine 0.77% external Apply to effected areas twice a day for 30 days 12/06/2015 Not-Taking Ciclopirox Olamine 0.77 % 1 application to affected area Externally Twice a day for 30 days 08/12/2011 Not-Taking Ciclopirox Olamine 0.77 % 1 application Externally Twice a day for 30 days Active Aspirin 81 MG 1 tablet Orally Once a day Active Tylenol Active Atorvastatin Calcium Active metFORMIN HCl Active Metoprolol & Diet Manage Prod Active ProAir HFA 108 (90 Base) MCG/ACT Inhalation for 17 Active Social History Tobacco Use: Social History Observation Description Date Details (start date - stop date) Former Smoker NA - NA Tobacco Use/Smoking Question Answer Notes Are you a: former smoker Additional Findings: Tobacco Non-User Current no n-smoker Tobacco use other than smoking: Question Answer Notes Are you an other tobacco user? No Vital Signs Height 5 ft 5 in in 02/23/2024 Weight 163 lbs 02/23/2024 BMI 27.12 kg/m2 02/23/2024 Blood pressure systolic 140 mm Hg 02/23/20 24 Blood pressure diastolic 70 mm Hg 024 Procedures Procedure Date Ordered Date Performed Result Body Sit e 99893-XFXCUVT NAIL, 6 OR MORE 02/23/2024 N/A Encounters Encounter Location Date Provider Diagnosis [facility] [address] [place] [address] 02/23/2024 Lorene Black Type 2 diabetes mellitus without complications E11.9 ; Tinea unguium B35.1 ; Pain in right toe(s) M79.674 ; Pain in left toe(s) M79.675 ; Tinea pedis of both feet B35.3 ; Hammer toe of left foot M20.42 and Hammer toe of right foot M20.41 Assessments Encounter Date Diagnosis (ICD Code) Assessment Notes Treatment Notes Treatment Clinical Notes Section Notes 02/23/2024 Type 2 diabetes mellitus without complications (ICD-10 - E11.9) Patient Educated with: DIABETIC FOOT CARE INSTRUCTIONS.p df (DIABETIC FOOT CARE INSTRUCTIONS.p df) 02/23/2024 Tinea unguium (ICD-10 - B35.1) 02/23/2024 Pain in right toe(s) (ICD-10 - M79.674) 02/23/2024 Pain in left toe(s) (ICD-10 - M79.675) 02/23/2024 Tinea pedis of both feet (ICD-10 - B35.3) 02/23/2024 Hammer toe of left foot (ICD-10 - M20.42) 02/23/2024 Hammer toe of right foot (ICD-10 - M20.41) Plan Of Treatment Medication Medication Name Sig Start Date Stop Date Notes Ciclopirox Olamine 0.77 % 1 application Externally Twice a day for 30 days Treatment Notes Assessment Notes Type 2 diabetes mellitus wit hout complications Patient Educated with: DIABETIC FOOT CARE INSTRUCTIONS.pdf (DIABETIC FOOT CARE INSTRUCTIONS.pdf) Pending Test Test Name Order Date [id number]-[id number] NAIL, 6 OR MORE 02/23/2024 Next Appt Details Follow Up: 1 Year, Reason: Provider Name:Lorene Perdomo , 02/21/2025 10:00:00 AM, [address] [place], [address], Procedure Notes * Category Sub-Category Detail Notes Debride Nail 6-10 Nail debridement Performance o f this nail treatment by a nonprofessional would put this patients foot and overall health at risk. Therefore, nail debridement was performed extensively to reduce/remove overall nail length, girth, thickness, subungual debris, and necrotic tissue, by manual and/or electrical means through the use of a nail nipper and/or dremel-type grinder set up operator internal, to a more viable healthy nail plate or bed tissue 6-10. Silver nitrate used for any petechial bleeding as necessary. Definitive antifungal treatment options have been reviewed and discussed with the patient. The patient chooses, no pharmaceutical tx - 85825 Progress Notes * Bobby BURRISDOB:[birth year] (78 yo M)Acc No.[id number]:02/23/2024 Progress Note Patient:?Bobby Burris Provider:?Lorene Perdomo DPM :1945???Age:78 Y???Sex:Male Facundo e:02/23/2024 Address:[address] [place], [place] [id number] Pcp:Mack Wade Subjective: * Chief Complaints: * ???At Risk Footcare Painful nail(s) aggrevated by shoes and causing difficulty standing/walking.Skin problem(s) * HPI: ???At Risk footcare:?Pt States Last PCP Visit:?Date?02/19/2024 ???Painful Nails:?Pt States Last PCP Visit:?Date:?02/19/2024 ???Skin problems:?Nature:?discolored, itching.?Location:?Bottom, B/L.?Duration:?several years.?Onset/Cause:?unknown.?Course:?worse ,.?Aggravated by:?no aggrevating factors.?Treatments:?Medication (Ciclopirox Olamine 0.77 Cream) , , admits intermittent adherence to recommended application.? * ROS:?General/Constitutional:?Nausea?denies.?Vomiting?denies.?Hunger Thirst?denies.?Loss appetite?denies.?Chills?denies.?Fatigue?denies.?Fever?denies.?Night Sweats?denies.?Unexplained weight loss?denies.?Ophthalmologic:?Blurred vision?denies.?Red eye?denies.?HEENTM:?Dentures?admits.?Dizziness?denies.?Glasses/contacts?admits.?Retinopathy?de nies.?Blurred/double vision?denies.?TMJ?denies.?Discharge/drainage?denies.?Implants?denies.?Hard of hearing denies.?Difficulty chewing/swallowing/speaking?denies.?Nose bleeds?denies.?Sore mouth?denies.?Swollen glands?denies.?Respiratory:?On Oxygen?denies.?Pneumonia/pleurisy?denies.?Bronchitis?denies.?Emphysema?denies.?C oughing?denies.?Cough blood?denies.?Shortness of breath?denies.?Wheezing?denies.?Cardiovascular:?Pacemaker?denies.?MVP?denies.?WPW?denies.?CHF?denies.?Heart attack?denies.?Septal defect?denies.?Rapid beat?denies.?Chest pain ?denies.?Atrial Fib.?denies.?Murmur/Palpitations?denies.?Gastrointestinal:?Hemorrhoids?denies.?Stomach/Abdominal pain?denies.?Dark blood stool?denies.?Irritable bowel ?denies.?Constipation?denies.?Diarrhea?denies.?Vomiting?denies.?Hematology:?Swelling?denies.?Bruising?denies.?Bleeding problem?denies.?Genitourinary:?Blood urine?denies.?Frequent/Painfu/urination/bladder control?denies.?Kidney stones?denies.?Infection (UTI)?denies.?Nephropathy?denies.?Musculoskeletal:?Hammertoes?denies.?Bunions?denies.?Scoliosis/kyphosis?denies.?Muscle cramps / walking?denies.?Generalized aches and pains?denies.?Weakness?denies.?Integ.:?Sommers?denies.?Scars?denies.?Corns/calluses?denies.?Ingrown nails?denies.?Painful nails?admits.?Rashes?denies.?Neurologic:?Difficulty sleeping?denies.?Bipolar?denies.?Brain disorder?denies.?Balance trouble?denies.?Confusion?denies.?Fainting/blackouts?denies.?Headache?denies.?Tr emors?denies.? * Medical History:? * Surgical History:?tonsillect hardik 195arpal tunnel surgery 03/2014right rotator cuff 08/2018 * Hospitalization/Major Diagno stic Procedure:?[facility]- Chest pain 03/2017 * Family History:?Mother: dece ased, diagnosed with Family history of arthritis.?Father: , diagnosed with Other malignant neoplasm of unspecified site.?Siblings: diagnosed with Other malignant neoplasm of unspecified site.? * Social History:?Tobacco Use:?Tobacco Use/Smoking?Are you a:?former smoker ?Additional Findings: Tobacco Non-User?Current non-smoker ?Tobacco use other than smoking?Are you an other tobacco user??No ???Miscellaneous:?Caffeine: yes, frequency:, 1-2 cups per day. ?Children: yes, 2. ?Exercise: yes, golf, gardening, bike riding. ?Marital status: . 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 * Medications:?TakingProAir HF A 108 (90 Base) MCG/ACT Aerosol Solution Inhalation Aspirin 81 MG Tablet 1 tablet Orally Once a dayTylenol Atorvastatin Calcium metFORMIN HCl Metoprolol & Diet Manage Prod Ciclopirox Olamine 0.77 % Cream 1 application Externally Twice a dayTaking ProAir HFA 108 (90 Base) MCG/ACT Aerosol Solution Inhalation Taking Aspirin 81 MG Tablet 1 tablet Orally Once a dayTaking Tylenol Taking Atorvastatin Calcium Taking metFORMIN HCl Taking Metoprolol & Diet Manage Prod Taking Ciclopirox Olamine 0.77 % Cream 1 application Externally Twice a dayNot-Taking/PRNAleve 220 MG Tablet 1 tablet as needed Orally every 12 hrsLisinopril 10 MG Tablet 1 tablet Orally Once a dayCiclopirox Olamine 0.77% Cream external Apply to effected areas twice a dayCiclopirox Olamine 0.77 % Cream 1 application to affected area Externally Twice a dayMedication List reviewed and reconciled with the patientNot-Taking/PRN Aleve 220 MG Tablet 1 tablet as needed Orally every 12 hrsNot-Taking/PRN Lisinopril 10 MG Tablet 1 tablet Orally Once a dayNot- Taking/PRN Ciclopirox Olamine 0.77% Cream external Apply to effected areas twice a dayNot-Taking/PRN Ciclopirox Olamine 0.77 % Cream 1 application to affected area Externally Twice a dayMedication List reviewed and reconciled with the patient * Allergies:?Lisinoprilyes[All ergies Verified] Objective: * Vitals:?Ht: 5 ft 5 in, Wt: 1 63, BMI: 27.12, Shoe size: 8, BP: 140/70 mm Hg, BS: not taken, Ht-cm: 165.1 cm, Wt-k.94 kg. * ???Past Orders: ???Lab:HEMOGLOBIN A1C (GLYCO HEMOGLOBIN) (Order Date - 09/09/2022) (Collection Date - 09/09/2022) ? Value Reference Range ?HEMOGLOBIN A1C % (HH) 6.9 * Examination: ???Ophthalmology Referral: ?DIABETES EYE EXAM?Diabetic Retinopathy Screening:?Yes ?Findings of Diabetic Eye Exam:?no retinopathy?General Examination: ?GENERAL APPEARANCE:?Reveals a pleasant, alert, well nourished, well developed, well hydrated individual, who demonstrates proper attention to hygene/body habitus, and is in no acute distress.?ORIENTED:?person, place, and time.?FOOT EXAM:?Lower Extremity Neurological Exam performed:?Yes ?Visual exam of foot performed:?Yes ?Date?02/23/2024 ?Sensory testing performed:?sensations normal ?Sensory and motor testing performed:?sensations normal ?Pedal pulse taking performed:?2+ ?Footwear Evaluation?Footwear Evaluation performed:?Yes New Balance sneakers?Neurological: ?SENSORY:?Neurological exam demonstrates, reduced vibration sensation, reduced light touch sensation left, 5.07 monofilament test performed at plantar aspects of 5 varied sites per foot shows sensation, B/L.?Vascular: ?DP PULSES(B):?2/4, B/L.?PT PULSES(B):?2/4, B/L.?CAPILLARY FILL TIME:?3 secs. per digit. B/L.?TROPHIC CONDITION-TEXTURE/ELASTICITY/TURGOR/HAIR GROWTH(B):?normal.?TEMPERTURE GRADIENT(C):?normal.?PIGMENTATION:?normal.?EDEMA(C):?absent.?TELANGECTASIA:?absent.?Dermatologic: ?SKIN FINDINGS:??Skin shows sign(s) of, erythema, scaling, in a moccasin fashion, no fissure(s) present, B/L , ,.?Nails: ?NAILS are:?elongated,overgrown,dystrophic,greater than 3mm thick,discolored and friable with crumbly malodorous subungual debris, with pain on palpation, TA, T1, T4, T5, T6, T9 .?Orthopedic: ?MUSCLE STRENGTH:?5/5 all groups in a symmetrical fashion, B/L.?DIGITAL DEFORMITIES:?Digital contracture, PIPJ, 2-5 B/L, incompl-reducible with WB, or to push-up test, no over, nor underlapping.?FOOTWEAR:?, worn, non-supportive.? Assessment: * Assessment: 1.?Type 2 diabetes mellitus without complications - E11.9 (Primary)?2.?Tinea unguium - B35.1?3.?Pain in right toe(s) - M79.674?4.?Pain in left toe(s) - M79.675?5.?Tinea pedis of both feet - B35.3, Acute problem, Uncomplicated (3),Rx drug management (4)?6.?Hammer toe of left foot - M20.42?7.?Hammer toe of right foot - M20.41? Plan: * Treatment: 2.?Tinea unguium?Procedure: [id number] NAIL, 6 OR MORE 3.?Tinea pedis of both feet? Start Ciclopirox Olamine Cream, 0.77 %, 1 application, Externally, Twice a day, 30 days, 60, Refills 2.?? * Procedures:?Debride Nail 6-10:?Nail debridement?Performance of this nail treatment by a nonprofessional would put this patients foot and overall health at risk. Therefore, nail debridement was performed extensively to reduce/remove overall nail length, girth, thickness, subungual debris, and necrotic tissue, by manual and/or electrical means through the use of a nail nipper and/or dremel-type grinder set up operator internal, to a more viable healthy nail plate or bed tissue 6-10. Silver nitrate used for any petechial bleeding as necessary. Definitive antifungal treatment options have been reviewed and discussed with the patient. The patient chooses, no pharmaceutical tx - 13213.? * Procedure Codes:?96789 DEBRI DE NAIL, 6 OR MORE, Modifiers: XS * Preventive Medicine:? ??Counseling:?Discussion:?-14: Office or other outpatient visit for the evaluation and management of an established patient, which required a medically appropriate history and/or examination and MODERATE level of DECISION MAKING for: 1 OR MORE CHRONIC PROBLEM(S) THATS WORSENING, 2 STABLE CHRONIC PROBLEMS, A NEWLY DIAGNOSED PROBLEM WITH UNCERTAIN PROGNOSIS, AN ACUTE COMPLICATED INJURY WITH MULTIPLE TREATMENT OPTIONS, OR AN ACUTE PROBLEM WITH ACCOMPANYING SYSTEMIC SYMPTOMS, THAT POSE(S) A MODERATE RISK OF MORBIDITY. THIS CONDITION MAY ALSO INCLUDE RX DRUG MANAGEMENT, OR A DECISON FOR MINOR SURGERY. The visit on the day of the encounter encompassed interpreting the data and educating the patient as to the nature of their condition, treatment options available according to their individual PMH, meds, allergies, and overall health/living conditions, as well as any potential risks or complications that may occur from a failure to adhere to, and participate in, the recommended course of therapy. The discussion included a complete verbal, and/or written explanation of the examination results, any x-rays taken, the proposed diagnosis, and outline of the treatment plan. A schedule for future care needs was also explained. The patient verbalized an understanding of the instructions at this time and agreed to be an active participant in their treatment. If the patient should think of any questions or concerns after the visit, I have encouraged the patient to call the office.?Digital Treatment:?HT- I explained to the patient the possible etiologies of Hammertoes, including genetics/foot type/shoegear/activity level/exercise routine and the risks/benefits of all the different treatment options for their pain including: No treatment at all, Rest, Ice, New/supportive/wider/deeper Shoegear, Digital Padding/Strapping/Taping/Bracing/Gel protective sleeves, Foot/Ankle AFO Bracing, Stretching exercises, Deep Tissue Massage, Arch support/shoe inserts with splay metatarsal padding, and Custom orthoses. I insisted that any digital devices be removed daily and not worn overnight for safety. The patient is to carefully examine the toes daily for any skin irritation while using any splinting or padding device. The advantages and disadvantages of each option were discussed and the patients questions re: shoegear, padding, custom vs prefabricated inserts, activity level, and consistency in home treatment regimens for optimal success were answered to their verbally confirmed satisfaction.pt defers rx for diabetic shoes- recomm new pair of new balance.?Tinea Pedis:?The patient was counseled on the diagnosis, potential etiologies, and treatment options for their skin condition. We discussed the risks and benefits of each option from performing no treatment, to utilizing OTC topical skin creams, prescription topical creams, customized compounded topical medications, and, if necessary, to utilize oral antifungal therapy. We discussed the advantages and disadvantages of each possible treatment and importance for adherence to all the recommended therapies for optimum success and avoid potential complications such as open sore/infection/possible hospitalization. We discussed the potential effectiveness of each topical preparation as well as each ones possible side effects and/or patient medication interactions if oral therapy is selected. Patient questions re: the advantages and disadvantages of each treatment choice, medication use/dosage, successful outcomes, and application consistency were reviewed and the patient verbalized that all answers were clearly understood. The patient was told they can help alleviate symptoms by utilizing moisture absorbant innersoles with activated charcoal and baking soda, applying antifungal sprays daily, aerating toe web spaces at night by putting cotton or lambs wool between the toes, alternating shoe gear daily if possible so they can dry out, changing socks at least once during the day, wearing well-ventilated shoes or sandals. The patient has decided to apply antifungal skin creams to their feet as directed. Rx was sent to their pharmacy at the time of visit.? * Follow Up:?1 Year * Images: * Sign off status: Completed true * Provider:?Lorene Perdomo DPM Date:?2023 Generated for Katy carney/Ang/eTrosieitting on:?08/04/2024 02:15 PM EST History and Physical Notes * HPI (History of Present Illness) Category Sub-Category Detail Notes Category Not es Painful Nails Pt States Last PCP Visit: Date:: 02/19/2024 Skin problems Nature: discolored, itching Location: Bottom, B/L Duration: several years Onset/Cause: unknown Course: worse , Aggravated by: no aggrevating facto rs Treatments: Medication (Ciclopir ox Olamine 0.77 Cream) , , admits intermittent adherence to recommended application At Risk footcare Pt States Last PCP Visit: Date: Examination Category Sub-Category Detail Notes Category Not es Neurological SENSORY: Neurological exa m demonstrates, reduced vibration sensation, reduced light touch sensation left, 5.07 monofilament test performed at plantar aspects of 5 varied sites per foot shows sensation, B/L Dermatologic SKIN FINDINGS: Skin shows sign( s) of, erythema, scaling, in a moccasin fashion, no fissure(s) present, B/L , , Orthopedic FOOTWEAR: , worn, non-supportive DIGITAL DEFORMITIES: Digital contracture , PIPJ, 2-5 B/L, incompl-reducible with WB, or to push-up test, no over, nor underlapping MUSCLE STRENGTH: 5/5 all groups in a symmetrical fashion, B/L General Examination GENERAL APPEARANCE: Reveals a pleasant, alert, well nourished, well developed, well hydrated individual, who demonstrates proper attention to hygene/body habitus, and is in no acute distress FOOT EXAM: Lower Extremity Neurological Exa m performed:: Yes Visual exam of foot performed:: Yes Date: 02/23/2024 Sensory testing performed:: sensations n ormal Sensory and motor testing performed:: se nsations normal Pedal pulse taking performed:: 2+ ORIENTED: person, place, and t hilario Footwear Evaluation Footwear Evaluation performe d:: Yes New Balance sneakers Ophthalmology Referral DIABETES EYE EXAM Diabetic Retinopa thy Screening:: Yes Findings of Diabetic Eye Exam:: no retin opathy Vascular DP PULSES (B): 2/4, B/L PT PULSES (B): 2/4, B/L CAPILLARY FILL TIME: 3 secs. per digit. B/L TEMPERTURE GRADIENT (C): normal TROPHIC CONDITION-TEXTURE/ELASTICITY/TUR GOR/HAIR GROWTH (B): normal EDEMA (C): absent TELANGECTASIA: absent PIGMENTATION: normal Nails NAILS are: elongated,overgr own,dystrophic,greater than 3mm thick,discolored and friable with crumbly malodorous subungual debris, with pain on palpation, TA, T1, T4, T5, T6, T9
--- OUTSIDE RECORDS SUMMARY | 2024-08-04 14:15 | XMS_ITS | Patient Health Record ---
Author Organization [facility] Address [address] [place] [address] Care Team Providers Care Packer Dried Beef Name Role Phone MauroStephaniefrancine Primary Care Provider Unavailabl e Black, Lorene Unavailable [phone] Allergies Allergen (clinical drug ingredient) Drug/Non Drug Allergy documented on EMR Reaction Allergy Type Onset Date Status lisinopril Lisinopril Unknown Drug Allergy Activ e Reason For Referral No Information Medications Medication SIG (Take, Route, Frequency, Duration) [...] a day for 30 days 08/12/2011 Not-Taking ProAir HFA 108 (90 Base) MCG/ACT Inhalation for 17 Active Aspirin 81 MG 1 tablet Orally Once a day Active Tylenol Active Atorvastatin Calcium Active Ciclopirox Olamine 0.77 % 1 application Externally Twice a day for 30 days Active metFORMIN HCl Active Metoprolol & Diet Manage Prod Active Immunizations Vaccine Route Administration Date Status Comme nts COVID-19 Moderna Vaccine Unknown 07/14/2020 Administered Second Dose: 08/08/2020 Influenza Unknown 03/24/2017 Administered Influenza Unknown 03/16/2019 Administered Influenza Unknown 02/08/2020 Administered Influenza Unknown 02/07/2022 Administered Influenza Unknown 02/23/2024 Administered Social History Tobacco Use: Social History Observation Description Date Details (start date - stop date) Former Smoker NA - NA Tobacco Use/Smoking Question Answer Notes Are you a: former smoker Additional Findings: Tobacco Non-User Current no n-smoker Alcohol Screen Question Answer Notes Did you have a drink containing alcohol in the p ast year? Yes Points 0 Interpretation Negative Tobacco use other than smoking: Question Answer Notes Are you an other tobacco user? No Problems Problem Type SNOMED Code ICD Code Onset Dates Problem Status W/U Status Risk Notes Problem Type II diabetes mellitus without complication (963153307) Type 2 diabetes mellitus without complications (E11.9) Active confirmed Problem 408121934 Hammer toe of right foot (M20.41) Active confirmed Problem 651719620 Hammer toe of left foot (M20.42) Active confirmed Vital Signs Blood pressure diastolic 70 mm Hg 02/23/2024 Height 5 ft 5 in in 02/23/2024 Blood pressure systolic 140 mm Hg 02/23/2024 Weight 163 lbs 02/23/2024 BMI 27.12 kg/m2 02/23/2024 Procedures Procedure Date Ordered Date Performed Result Body Sit e [id number]-[id number] NAIL, 6 OR MORE 02/23/2024 N/A Encounters Encounter Location Date Provider Diagnosis [facility] [address] [place] [address] 02/23/2024 Lorene Black Type 2 diabetes mellitus [...] foot (ICD-10 - M20.41) Plan Of Treatment Pending Test Test Name Order Date [id number] NAIL, 6 OR MORE 08/12/2011 [id number] NAIL, 6 OR MORE 12/06/2015 [id number] NAIL, 6 OR MORE 12/05/2016 [id number] NAIL, 6 OR MORE 02/12/2018 [id number] NAIL, 6 OR MORE 02/11/2019 [id number] NAIL, 6 OR MORE 02/17/2020 [id number] NAIL, 6 OR MORE 02/15/2021 [id number] NAIL, 6 OR MORE 02/14/2022 [id number] NAIL, 6 OR MORE 02/20/2023 [id number]-[id number] NAIL, 6 OR MORE 02/23/2024 69687- Debride <25 sq cm 12/19/2016 69036 I&D ABSCESS- SIMPLE,SINGLE 017 Next Appt Details Provider Name:Lorene Gonzalez Conor , 02/21/2025 10:00:00 AM, [address] [facility], [place], [address], Insurance Providers Payer Name Payer Address Payer Phone Subscriber Number Group Number Insured Name Patient Relationship to Insured Coverage Start Date Coverage End Date [facility] 65 Medicare Preferred [address] [place] [address] [phone] [id number] Bobby Damon Self - patient is the insured Medical (General) History Medical History History ICD Code back, hip, knee pain Arthritis diabetes High blood pressure Chicken pox Surgical History Surgery Date(Month/Year) tonsillectomy 195 carpal tunnel surgery 03/2014 right rotator cuff 08/2018 Hospitalization History Reason Date(Month/Year) [facility]- Chest pain 03/2017
--- OUTSIDE RECORDS SUMMARY | 2024-08-04 14:15 | XMS_ITS | Continuity of Care Document ---
Author Name [facility] Organization [facility] Care Team Providers Care Call Center Director Name Role Phone [facility] Unavailable Unavailable Problems Combined list of problems from Department of Defense and Veterans Affairs facilities. It does not include entries that were removed or entered in error. Problem Status Onset Date Problem Type Date of Resolution Comments Source Diagnosis: ICD-10-CM Z46.1 Encounter for fitting and adjustment of hearing aid Active Diagnosis [facility] Diagnosis: ICD-10-CM H90.3 Sensorineural hearing loss, bilateral Active Diagnosis [facility] Encounters Combined list of: 1) Encounters from Department of Veterans Affairs facilities going backup to the last 18 months, not all VA inpatient encounters are included; 2) Encounters from the Department of Defense facilities going backup to 280 months. Location Location Details Encounter Type Encounter Number Reason For Visit Attending Provider ADM Date DC Date Status Disposition Source [facility] HEARING AID REPAIR/MOD IFYING [id number] Diagnos is: ICD-10- CM Z46.1 Encount er for fitting and adjustm ent of hearing aid SELENE STOREY L 02/03 [facility] Outpatient Encounter [id number] 07/15 [facility] HEARING AID CHECK BOTH EARS [id number] Diagnos is: ICD-10- CM H90.3 Sensori neural hearing loss, bilTESS Ni 08/06 [facility] HEARING AID REPAIR/MOD IFYING [id number] Diagnos is: ICD-10- CM Z46.1 Encount er for fitting and adjustm ent of hearing aid SENIOR,COLLEEN OLE L 10/27 [facility] HEARING AID REPAIR/MOD IFYING [id number] 1. Diagnos is: ICD-10- CM Z46.1 Encount er for fitting and adjustm ent of hearing aid TESS REVELES L 04/06 [facility] HEARING AID FITTING/CH ECKING [id number] Diagnos is: ICD-10- CM Z46.1 Encount er for fitting and adjustm ent of hearing aid TESS REVELES L 05/25 [facility]
--- OUTSIDE RECORDS SUMMARY | 2024-08-04 14:15 | XMS_ITS ---
Author Name [facility] [place] [facility] [place] Address [address] [place] [address] Support Name Relationship Address Phone DAYTONDARRENLATONIA Next of Kin [address] MA [...] Souza's Name Patient's Relationship to Policy Souza [facility] (WNR) MEDICARE ADVANTAGE MCR (WNR) Jun 09, 2020 [id number] [phone] DAYTON,DO NALD PATIENT [facility] (WNR) MEDICARE ADVANTAGE MCR (WNR) Jun 09, 2023 [id number] DAYTON,DO NALD PATIENT [facility] (WNR) MEDICARE [facility] (WNR) Jun 09, 2020 [id number] DAYTON,DO NALD PATIENT Selected Encounter This section includes the information on record at [place] for the Encounter. Date/Time Encounter Type Encounter Description Reason Provider Source Apr 06, 2024 10:00 AM HEARING AID REPAIR/MODIFYING AUDIOLOGY ICD-10-CM Z46.1 Encounter for fitting and adjustment of hearing aid LAVERN REVELES Encounter Template Text not used by [place] Assessments - Encounter Diagnoses This section includes the primary and secondary diagnoses documented for the Encounter. Date/Time Primary/Secondary Diagnosis Diagnosis Name Provider Source Apr 06, 2024 10:28 AM PRIMARY Encounter for fitting and adjustment of hearing aid ABDIRIZAKLAVERN DUKES [facility] Apr 06, 2024 10:28 AM SECONDARY Sensorineural hearing loss, bilateral ABDIRIZAKLAVERN [facility] Plan of Treatment: Future Appointments (+ 6 months) and Future Tests (+/- 45 days) The Plan of Treatment section includes future care activities for the patient from all [place] treatmentfacilities. This section includes future appointments and future orders which are active, pending or scheduled. Future Appointments This section includes appointments that were scheduled to occur 6 months from the date of the Encounter, up to a maximum of 20 appointments. The data comes from all [place] treatment facilities. Appointment Date/Time Appointment Type Appointme nt Facility Name May 25, 2024 11:00 AM AMBULATORY - REHAB MEDICIN E [facility] Encounter Notes: All associated encounter notes This section contains the clinical notes associated to the Encounter. Date/Time Encounter Note(s) Provider Source Apr 06, 2024 10:22 AM AUDIOLOGY E & M NO TE: [facility] TITLE: AUDIOLOGY CLINIC STANDARD TITLE: AUDIOLOGY E & M NOTE DATE OF NOTE: APR 06, 2024@10:22 ENTRY DATE: APR 06, 2024@10:22:57 AUTHOR: LAVERN REVELES EXP COSIGNER: URGENCY: STATUS: COMPLETED was seen April 06, 2024 reporting right aid only holding charge for a couple hours and left aid too loud so he rarely wears it. Right aid wax guard plugged but [place] reporting he is hearing battery so this is not cause of charging issue. Both aids checked and cleaned. Receivers and microphone covers replaced. Frothing Machine Operator cleaned and both aids show as charging on shell core and molding supervisor. Desiccant replaced and new brush. Aids reprogrammed with overall gain and MPO for left decreased. Both aids show charge 92% right and 100% left. counseled and instructed that if right aid continues to say battery in a few hours or less, he should send for repair-will send him DALC box. If sends right aid for repair and it returns to him still not holding charge, shell core and molding supervisor may be defective and he is told to call us if this is case and we will order him a new shell core and molding supervisor. Patient Education Education provided on the following topics: See above Education provided to: P Response to Education: VU Christine Patient P Family F Significant Other SO Verbalizes Understanding VU Returns Demonstration RD Performs Independently PI Lacks Comprehension LC Refused Education RE Not Applicable NA /cody/ LAVERN Schroeder, CCC-Carlos CHIEF, AUDIOLOGY/DIRECTOR OF TEACHER EDUCATION Signed: 04/06/2024 10:28 LAVERN REVELES [facility]
--- OUTSIDE RECORDS SUMMARY | 2024-08-04 14:15 | XMS_ITS ---
Author Name [facility] [place] [facility] [place] [facility] [place] Address [address] [place] [address] Support Name Relationship Address Phone DAYTONDARRENLATONIA Next [...] Souza's Name Patient's Relationship to Policy Souza [facility] (WNR) MEDICARE ADVANTAGE MCR (WNR) Jun 09, 2020 [id number] [phone] DAYTON,DO NALD PATIENT [facility] (WNR) MEDICARE ADVANTAGE MCR (WNR) Jun 09, 2023 [id number] [phone] DAYTON,DO NALD PATIENT [facility] (WNR) MEDICARE ADVANTAGE MCR (WNR) Jun 09, 2020 [id number] DAYTON,DO NALD PATIENT Selected Encounter This section includes the information on record at [place] for the Encounter. Date/Time Encounter Type Encounter Description Reason Provider Source May 25, 2024 11:00 AM HEARING AID FITTING/CHECKING AUDIOLOGY ICD-10-CM Z46.1 Encounter for fitting and adjustment of hearing aid LAVERN REVELES Encounter Template Text not used by [place] Assessments - Encounter Diagnoses This section includes the primary and secondary diagnoses documented for the Encounter. Date/Time Primary/Secondary Diagnosis Diagnosis Name Provider Source May 25, 2024 11:27 AM PRIMARY Encounter for fitting and adjustment of hearing aid SHYLA MCINTYRE [facility] May 25, 2024 11:27 AM SECONDARY Sensorineural hearing loss, bilateral SHYLA MCINTYRE [facility] Encounter Notes: All associated encounter notes This section contains the clinical notes associated to the Encounter. Date/Time Encounter Note(s) Provider Source May 25, 2024 07:47 AM AUDIOLOGY NOTE: LOCAL TITLE: AUDIOLOGY HEALTH INTERIOR DESIGN FACULTY MEMBER STANDARD TITLE: AUDIOLOGY NOTE DATE OF NOTE: MAY 25, 2024@07:47 ENTRY DATE: MAY 25, 2024@07:47:33 AUTHOR: MONCHO MCINTYRE COSIGNER: LAVERN REVELES URGENCY: STATUS: COMPLETED May 25, 2024 History/Background: Jasper was seen for a hearing aid follow up, unaccompanied. The presented today reporting his right hearing aid is hurting his ear. The noted he sent the right aid out for repair and since he received it back he is getting pain in the ear after wearing the hearing aid for a couple hours. Hearing aids: Bita EVOLV AI [facility] Serial Numbers: [id number] Battery size: Rechargeable Date Issued: 08/19/2022 Hearing aid check: The right hearing aid was cleaned and checked. Replaced the 3/60 grey stock recorder with a 4/60 grey stock recorder but that was too long. Modified the right earmold by grinding down. The noted the earmold no longer felt as bulky in the ear. He will try wearing with this modification and contact the clinic if he continues to have discomfort. The asked for assistance re-pairing his hearing aids to his Apple smartphone. The hearing aids were paired successfully. Plan: The Jasper will contact the clinic as needed. /cody/ MONCHO MCINTYRE Audiology Health Customer Liaison Signed: 05/25/2024 11:39 /cody/ LAVERN Schroeder CCC-A CHIEF, AUDIOLOGY/COMMERCIAL CONSTRUCTION ESTIMATOR Cosigned: 05/25/2024 13:21 MONCOH MCINTYRE [facility]
--- OUTSIDE RECORDS SUMMARY | 2024-08-04 14:15 | XMS_ITS ---
Author Organization [facility] sebastian [place] Address [address] [place] [address] Care Team Providers Care Gameplay Programmer Name Role Phone Mack Wade Primary Care Provider Unavailabl e Black, Lorene Unavailable [phone] Allergies Allergen (clinical drug ingredient) Drug/Non Drug Allergy documented on EMR Reaction Allergy Type Onset Date Status lisinopril Lisinopril Unknown Drug Allergy Activ e REASON FOR VISIT At Risk Footcare, Painful nail(s) aggrevated by shoes and causing difficulty standing/walking., Skin problem(s) Medications Medication SIG (Take, Route, Frequency, Duration) Notes Start Date End Date Status Ciclopirox Olamine 0.77 % 1 application to affected area Externally Twice a day for 30 days 08/12/2011 Not-Taking Ciclopirox Olamine 0.77% external Apply to effected areas twice a day for 30 days 12/06/2015 Not-Taking Lisinopril 10 MG 1 tablet Orally Once a day Not-Taking Aleve 220 MG 1 tablet as needed Orally every 12 hrs Not-Taking Metoprolol & Diet Manage Prod Active Tylenol Active Aspirin 81 MG 1 tablet Orally Once a day Active ProAir HFA 108 (90 Base) MCG/ACT Inhalation for 17 Active metFORMIN HCl Active Atorvastatin Calcium Active Ciclopirox Olamine 0.77 % 1 application Externally Twice a day for 30 days Active Social History Tobacco Use: Social History [...] Problem Status W/U Status Risk Notes Problem 115098043 Hammer toe of left foot (M20.42) Active confirmed Problem 930095007 Hammer toe of right foot (M20.41) Active confirmed Vital Signs Height 5 ft 5 in in 02/20/2023 Weight 179 lbs 02/20/2023 BMI 29.78 kg/m2 02/20/2023 Blood pressure systolic 125 mm Hg 02/21/20 23 Blood pressure diastolic 80 mm Hg 023 Procedures Procedure Date Ordered Date Performed Result Body Sit e 37263-CUWXGOO NAIL, 6 OR MORE 02/20/2023 N/A Encounters Encounter Location Date Provider Diagnosis [facility] [place] [address] [place] [address] 02/20/2023 Lorene Black Type 2 diabetes mellitus without complications E11.9 ; Tinea unguium B35.1 ; Pain in right toe(s) M79.674 ; Pain in left toe(s) M79.675 ; Tinea pedis of both feet B35.3 ; Hammer toe of left foot M20.42 and Hammer toe of right foot M20.41 Assessments Encounter Date Diagnosis (ICD Code) Assessment Notes Treatment Notes Treatment Clinical Notes Section Notes 02/20/2023 Type 2 diabetes mellitus without complications (ICD-10 - E11.9) Patient Educated with: DIABETIC FOOT CARE INSTRUCTIONS.p df (DIABETIC FOOT CARE INSTRUCTIONS.p df) 02/20/2023 Tinea unguium (ICD-10 - B35.1) 02/20/2023 Pain in right toe(s) (ICD-10 - M79.674) 02/20/2023 Pain in left toe(s) (ICD-10 - M79.675) 02/20/2023 Tinea pedis of both feet (ICD-10 - B35.3) 02/20/2023 Hammer toe of left foot (ICD-10 - M20.42) 02/20/2023 Hammer toe of right foot (ICD-10 - M20.41) Plan Of Treatment Medication Medication Name Sig Start Date Stop Date Notes Ciclopirox Olamine 0.77 % 1 application Externally Twice a day for 30 days Treatment Notes Assessment Notes Type 2 diabetes mellitus wit hout complications Patient Educated with: DIABETIC FOOT CARE INSTRUCTIONS.pdf (DIABETIC FOOT CARE INSTRUCTIONS.pdf) Pending Test Test Name Order Date [id number] NAIL, 6 OR MORE 02/20/2023 Next Appt Details Follow Up: 1 Year, Reason: Provider Name:Lorene Perdomo , 02/21/2025 10:00:00 AM, [address] [place], [address], Procedure Notes * Category Sub-Category Detail Notes Debride Nail 6-10 Nail debridement Nail debridem ent performed extensively to reduce/remove overall nail length and girth, subungual debris, and necrotic tissue, by manual and electrical means with use of a nail nipper and/or dremel, to more viable healthy nail plate or bed tissue 6-10. Silver nitrate used for any petechial bleeding as necessary. Patient chooses, no pharmaceutical tx (53434) Progress Notes * Bobby BURRISDOB:[birth year] (77 yo M)Acc No.[id number]:02/20/2023 Progress Note Patient:?Bobby Burris Provider:?Lorene Perdomo DPM :1945???Age:77 Y???Sex:Male Facundo e:02/20/2023 Address:[address] [place], [place] [id number] Pcp:Mack Wade Subjective: * Chief Complaints: * ???At Risk Footcare Painful nail(s) aggrevated by shoes and causing difficulty standing/walking.Skin problem(s) * HPI: ???At Risk footcare:?Pt States Last PCP Visit:?Date?09/18/2022 ???Painful Nails:?Pt States Last PCP Visit:?Date:?09/18/2022 ???Skin problems:?Nature:?discolored, itching.?Location:?Bottom, B/L.?Duration:?several years.?Onset/Cause:?unknown.?Course:?worse ,.?Aggravated by:?no aggrevating factors.?Treatments:?Medication (Ciclopirox Olamine 0.77 Cream) , admits nonadherence to recommended application.? * ROS:?General/Constitutional:?Nausea?denies.?Vomiting?denies.?Hunger Thirst?denies.?Loss appetite?denies.?Chills?denies.?Fatigue?denies.?Fever?denies.?Night Sweats?denies.?Unexplained weight loss?denies.?Ophthalmologic:?Blurred vision?denies.?Red eye?denies.?HEENTM:?Dentures?admits.?Dizziness?denies.?Glasses/contacts?admits.?Retinopathy?de nies.?Blurred/double vision?denies.?TMJ?denies.?Discharge/drainage?denies.?Implants?denies.?Hard of hearing denies.?Difficulty chewing/swallowing/speaking?denies.?Nose bleeds?denies.?Sore mouth?denies.?Swollen glands?denies.?Respiratory:?On Oxygen?denies.?Pneumonia/pleurisy?denies.?Bronchitis?denies.?Emphysema?denies.?C oughing?denies.?Cough blood?denies.?Shortness of breath?denies.?Wheezing?denies.?Cardiovascular:?Pacemaker?denies.?MVP?denies.?WPW?denies.?CHF?denies.?Heart attack?denies.?Septal defect?denies.?Rapid beat?denies.?Chest pain ?denies.?Atrial Fib.?denies.?Murmur/Palpitations?denies.?Gastrointestinal:?Hemorrhoids?denies.?Stomach/Abdominal pain?denies.?Dark blood stool?denies.?Irritable bowel ?denies.?Constipation?denies.?Diarrhea?denies.?Vomiting?denies.?Hematology:?Swelling?denies.?Bruising?denies.?Bleeding problem?denies.?Genitourinary:?Blood urine?denies.?Frequent/Painfu/urination/bladder control?denies.?Kidney stones?denies.?Infection (UTI)?denies.?Nephropathy?denies.?Musculoskeletal:?Hammertoes?denies.?Bunions?denies.?Scoliosis/kyphosis?denies.?Muscle cramps / walking?denies.?Generalized aches and pains?denies.?Weakness?denies.?Integ.:?Sommers?denies.?Scars?denies.?Corns/calluses?denies.?Ingrown nails?denies.?Painful nails?admits.?Rashes?denies.?Neurologic:?Difficulty sleeping?denies.?Bipolar?denies.?Brain disorder?denies.?Balance trouble?denies.?Confusion?denies.?Fainting/blackouts?denies.?Headache?denies.?Tr emors?denies.? * Medical History:? * Surgical History:?tonsillect hardik 1951carpal tunnel surgery 03/2014right rotator cuff 08/2018 * [...] than smoking?Are you an other tobacco user??No ???Drugs/Alcohol:?Drugs?Have you used drugs other than those for medical reasons in the past 12 months??No ?Alcohol Screen?Did you have a drink containing alcohol in the past year??Yes ?Points?0 ?Interpretation?Negative ???Miscellaneous:?Caffeine: yes, frequency:, 1-2 cups per day. ?Children: yes, 2. ?Exercise: yes, golf, gardening, bike riding. ?Marital status: . 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 * Medications:?TakingProAir HF A 108 (90 Base) MCG/ACT Aerosol Solution Inhalation Aspirin 81 MG Tablet 1 tablet Orally Once a dayTylenol Atorvastatin Calcium metFORMIN HCl Metoprolol & Diet Manage Prod Taking ProAir HFA 108 (90 Base) MCG/ACT Aerosol Solution Inhalation Taking Aspirin 81 MG Tablet 1 tablet Orally Once a dayTaking Tylenol Taking Atorvastatin Calcium Taking metFORMIN HCl Taking Metoprolol & Diet Manage Prod Not-Taking/PRNAleve 220 MG Tablet 1 tablet as needed [...] MG Tablet 1 tablet Orally Once a dayNot-Taking/PRN Ciclopirox Olamine 0.77% Cream external Apply to effected areas twice a dayNot-Taking/PRN Ciclopirox Olamine 0.77 % Cream 1 application to affected area Externally Twice a dayMedication List reviewed and reconciled with the patient * Allergies:?Lisinoprilyes[All ergies Verified] Objective: * Vitals:?Ht: 5 ft 5 in, Wt: 1 79, BMI: 29.78, Shoe size: 8, BP: 125/80 mm Hg, BS: not taken, Ht-cm: 165.1 cm, Wt-k.19 kg. * ???Past Orders: ???Lab:HEMOGLOBIN A1C (GLYCO [...] Exam performed:?Yes ?Visual exam of foot performed:?Yes ?Date?02/20/2023 ?Sensory testing performed:?sensations normal ?Sensory and motor testing performed:?sensations normal ?Pedal pulse taking performed:?2+ ?Footwear Evaluation?Footwear Evaluation performed:?Yes?Neurological: ?SENSORY:?Neurological exam demonstrates, reduced vibration sensation, reduced light touch sensation left, 5.07 monofilament test performed at plantar aspects of 5 varied sites per foot shows sensation, B/L.?Vascular: ?DP PULSES:?2/4, B/L.?PT PULSES:?2/4, B/L.?CAPILLARY FILL TIME:?3 secs. per digit. B/L.?SKIN TEMPERTURE GRADIENT OF THE LOWER EXTERMITIES:?normal.?HAIR GROWTH/TEXTURE/ELASTICITY/TURGOR:?normal.?PIGMENTATION:?normal.?EDEMA:?absent.?TELANGECTASIA:?absent.?Dermatologic: ?SKIN FINDINGS:?Skin exam reveals normal texture, elasticity, and turgor. There are no masses. The interspaces are clear , Skin shows sign(s) of, erythema, scaling, in a moccasin fashion, no fissure(s) present, B/L , ,.?Nails: ?NAILS are:?elongated,overgrown,dystrophic,greater than 3mm thick,discolored and friable with crumbly malodorous subungual debris, with pain on palpation, TA, T1, T4, T5, T6, T9 .?Orthopedic: ?MUSCLE STRENGTH:?5/5 all groups in a symmetrical fashion, B/L.?DIGITAL DEFORMITIES:?Digital contracture, PIPJ, 2-5 B/L, incompl-reducible with WB, or to push-up test, no over, nor underlapping.?FOOTWEAR:? good condition.? Assessment: * Assessment: 1.?Tinea unguium - B35.1?2.? Type 2 diabetes mellitus without complications - E11.9 (Primary)?3.?Pain in right toe(s) - M79.674?4.?Pain in left toe(s) - M79.675?5.?Tinea pedis of both feet - B35.3, Acute problem, Uncomplicated (3),Rx drug management (4)?6.?Hammer toe of left foot - M20.42?7.?Hammer toe of right foot - M20.41? Plan: * Treatment: 2.?Tinea unguium?Procedure: [id number] NAIL, 6 OR MORE 3.?Tinea pedis of both feet? Start Ciclopirox Olamine Cream, 0.77 %, 1 application, Externally, Twice a day, 30 days, 60, Refills 2.?? * Procedures:?Debride Nail 6-10:?Nail debridement?Nail debridement performed extensively to reduce/remove overall nail length and girth, subungual debris, and necrotic tissue, by manual and electrical means with use of a nail nipper and/or dremel, to more viable healthy nail plate or bed tissue 6-10. Silver nitrate used for any petechial bleeding as necessary. Patient chooses, no pharmaceutical tx (67464).? * Procedure Codes:?94596 DEBRI DE NAIL, 6 OR MORE, Modifiers: [...] have encouraged the patient to call the office.?Diabetic Footcare:?The patient was advised against future self nail/callus care due to inherent risks for infection, loss of limb/life given diabetes.?Digital Treatment:?HT- I explained to the patient the [...] success were answered to their verbally confirmed satisfaction.?Tinea Pedis:?The patient was counseled on the diagnosis, [...] to their pharmacy at the time of visit.Pt defers oral medication.? * Follow Up:?1 Year * Images: * Sign off status: Completed true * Provider:?Lorene Perdomo DPM Date:?2022 Generated for Katy carney/Ang/Angela on:?08/04/2024 02:15 PM EST History and Physical Notes * HPI (History of Present Illness) Category Sub-Category Detail Notes Category Not es Painful Nails Pt States Last PCP Visit: Date:: 09/18/2022 Skin problems Nature: discolored, itching Location: Bottom, B/L Duration: several years Onset/Cause: unknown Course: worse , Aggravated by: no aggrevating facto rs Treatments: Medication (Ciclopir ox Olamine 0.77 Cream) , admits nonadherence to recommended application At Risk footcare Pt States Last PCP Visit: Date: 3 Examination Category Sub-Category Detail Notes Category Not es Neurological SENSORY: Neurological exa m demonstrates, reduced vibration sensation, reduced light touch sensation left, 5.07 monofilament test performed at plantar aspects of 5 varied sites per foot shows sensation, B/L Dermatologic SKIN FINDINGS: Skin exam reveal s normal texture, elasticity, and turgor. There are no masses. The interspaces are clear , Skin shows sign(s) of, erythema, scaling, in a moccasin fashion, no fissure(s) present, B/L , , Orthopedic FOOTWEAR: good condition DIGITAL DEFORMITIES: Digital contracture , PIPJ, 2-5 [...] Visual exam of foot performed:: Yes Date: 02/20/2023 Sensory testing performed:: sensations n ormal Sensory and motor testing performed:: se nsations normal Pedal pulse taking performed:: 2+ ORIENTED: person, place, and t hilario Footwear Evaluation Footwear Evaluation performe d:: Yes Ophthalmology Referral DIABETES EYE EXAM Diabetic Retinopa [...]
== END 2024-08-04 11:59 | disposition home or self-care (01) ==
PROVIDERS: PCP Internal Medicine; Visit Provider Internal Medicine
DX: R05.3 Chronic cough (principal); E11.65 Type 2 diabetes mellitus with hyperglycemia; I25.10 Atherosclerotic heart disease of native coronary artery without angina pectoris; K21.9 Gastro-esophageal reflux disease without esophagitis; E78.00 Pure hypercholesterolemia, unspecified; I10 Essential (primary) hypertension; R10.11 Right upper quadrant pain; E83.42 Hypomagnesemia

== ENCOUNTER → 2024-08-04 11:20 | Outpatient (BNVA) | payer MEDICARE, SELFPAY | PROVIDERS: PCP Internal Medicine; Visit Provider Internal Medicine | DX: R05.3 Chronic cough (principal); I25.10 Atherosclerotic heart disease of native coronary artery without angina pectoris; E11.65 Type 2 diabetes mellitus with hyperglycemia; K21.9 Gastro-esophageal reflux disease without esophagitis; E78.00 Pure hypercholesterolemia, unspecified; I10 Essential (primary) hypertension; R10.11 Right upper quadrant pain; E83.42 Hypomagnesemia | CPT/HCPCS: 99212 ==

== ENCOUNTER 2024-08-09 10:39 | Outpatient (AMB) | payer MEDICARE, SELFPAY ==
[2024-08-09 11:03] VITALS: BP 130/64; PULSE 67; O2SAT 95; BMI 27.2
--- NOTE | 2024-08-09 11:03 | A.OFFVIS_ITS ---
Vital Signs 08/09/24 11:03 Height 5 ft 4 in Weight 158 lb 11.725 oz BMI 27.2 BP 130/64 Blood Pressure Location Lt brachial Position Sitting Pulse 67 Pulse Source Pulse Oximeter Pulse Oximetry (%) 95 Oxygen Delivery Method Room Air Intake Visit Reasons: asthma Intake Note: pt is here as a new patient, had pneumonia in April, pcp tried for ct scan but was unable to get approved. appetite is less, Field Contact Person Required: No Allergies lisinopril Allergy (Mild, Verified 08/09/24 12:01) cough losartan Adverse Reaction (Intermediate, Verified 08/09/24 12:01) Cough Medication List - Last Reconciled 08/09/24 by Brenton Allison MD albuterol sulfate 90 mcg/actuation (Ventolin HFA) 1 inh inhalation QID PRN ascorbic acid (vitamin C) 500 mg PO aspirin (Adult Aspirin Regimen) 81 mg PO DAILY atorvastatin 10 mg PO DAILY benzonatate 200 mg PO BID-TID PRN blood pressure monitor (Blood Pressure Kit) As directed cetirizine (Zyrtec) 10 mg PO DAILY PRN cholecalciferol (vitamin D3) 25 mcg PO DAILY cyanocobalamin (vitamin B-12) 1,000 mcg PO DAILY diclofenac sodium 75 mg PO BID PRN 90 days home hemoglobin A1C monitor As directed magnesium aspart,citrate,oxide 400 mg PO .QD 10 days metformin 1,000 mg 2 times a day; 90 days metoprolol tartrate 12.5 mg (1/2 x 25 mg) PO BID multivitamin 1 tab PO DAILY mupirocin 2% 1 appl topical BID 15 days tamsulosin 0.4 mg PO DAILY tramadol 50 mg PO Q8H PRN Do you need a note to return to daycare/school/sports/work: No HPI HPI asthma: Details: This 79 years old very pleasant gentleman comes with is who is also 79 years old. Both have been in relatively good health all along. Bobby does have history of intermittent bouts of allergy problem. And has used Zyrtec p.r.n.. He is prone to have episodes of cough and some wheezing usually in winter months, and has used to antihistaminic agents p.r.n.. This time in April 2024 he had onset of cough, but no fever or chills. He was seen in an urgent care clinic, who sent him for a chest x-ray. There was a question of infiltrate in the right perihilar area, patient was treated for question of mild pneumonia, with a course of Z-Nikolay. Even after that he continue to have bouts of cough which were quite distressing, He was prescribed albuterol inhaler which he used p.r.n. for severe bouts of cough with. Partial relief Patient also used benzonatate 1 per b.i.d. p.r.n. for cough. He was also prescribed albuterol inhaler to use. 2 puffs Q 6 hours p.r.n. The cough lingered on for about 10-12 weeks and finally, resolved in June. Now he does not need to use albuterol. Primary care physician was trying to get a CT scan of the chest but it was not approved by insurance. HISTORY OF SMOKING. HE SMOKED IN EARLY AGE FOR ABOUT 10-15 YEARS BUT QUIT MORE THAN 40 YEARS AGO, SO HE IS CONSIDERED TO BE NONSMOKER. [facility] Medical History Fatty liver Urinary incontinence Essential tremor Asthma Pulmonary nodule, right Hypertension Hypercholesterolemia GERD (gastroesophageal reflux disease) Coronary artery disease Type 2 diabetes mellitus with hyperglycemia Surgical History Hx of rotator cuff surgery Carpal tunnel syndrome Family History Father Pancreatic cancer Mother No problems noted. Maternal Aunt Cancer Brother Cancer Social History Household Members: Spouse Housing: House Alcohol intake: current Alcohol intake frequency: holidays/special occasions only Comment: oncea month 1 drink Patient Tobacco Use Status: Former Tobacco user Tobacco use type: Cigarette Years Smoked: quit 1979 e-Cigarette/Vaping Use: Never Used Second Hand Smoke Exposure: No service: Yes Current occupational status: retired Cognitive needs: No Hearing needs: No Vision needs: Yes Review of Systems Const All systems reviewed & are unremarkable except as noted in HPI and below Eyes Reports no additional complaints ENT Reports no additional complaints Card Denies chest pain, Denies irregular heart rhythm and Denies leg edema Resp Reports as per HPI GI Reports no additional complaints Reports no additional complaints Musc Reports no additional complaints Skin/Breast Reports system reviewed and no additional complaints, except as documented Neuro Reports no additional complaints Psych Reports no additional complaints Endo Reports no additional complaints Aller/Immun Reports no additional complaints Physical Exam Vital Signs: Last Vital Signs Pulse 67 08/09/24 11:03 BP 130/64 08/09/24 11:03 Pulse Ox 95 08/09/24 11:03 Oxygen Delivery Method Room Air 08/09/24 11:03 BMI result Body Mass Index 27.2 Const General: healthy appearing, comfortable, no acute distress, alert and awake Orientation/consciousness: patient oriented x3 HEENT Head: Yes normal to inspection General nose exam: No nasal polyps present and No nasal discharge present Face and sinus: Yes sinuses nontender Mouth: oropharynx normal Throat: Yes posterior oropharynx normal Eyes General: appearance normal, both eyes and all related structures Neck Neck: Yes normal visual inspection, Yes no lymphadenopathy, Yes trachea midline and Yes no JVD Thyroid: Thyroid normal Chest Chest palpation & inspection: normal inspection of the chest, normal palpation of entire chest wall and no tenderness Resp Effort & Inspection: normal respiratory effort Auscultation: clear to auscultation bilaterally, no crackles, no rhonchi and no wheezes Cardio Palpation: normal PMI Rate: regular rate Rhythm: regular rhythm Heart sounds: no gallops and no murmurs Peripheral pulses: Peripheral pulses 2+ throughout GI Palpation (GI): Soft to palpation, nontender, No hepatosplenomegaly present and no masses Auscultation: normal bowel sounds Back/Spine/Pelvis Thoracic/Lumbar Spine: thoracic and lumbar spine normal to inspection Skin General skin exam: no rashes or lesions noted Neuro General: patient oriented x3 and no focal motor deficits Cranial nerves: Yes CN's II-XII intact bilaterally Extrem General: Yes normal to inspection, Yes no clubbing, cyanosis or edema and Yes no calf tenderness Psych Appearance: grossly normal and well kempt Speech and movement: Normal speech and movement present Results Reviewed Results Reviewed: 04/09/2024 CHEST XRAY IMPRESSION: Airspace disease versus lymphadenopathy, right pulmonary hilum. Recommend CT chest with contrast. Probable osteotomy/postsurgical changes, right acromioclavicular joint. Electronically signed by: Matthew Carmona MD 04/16/2024 03:12 PM EST * I HAVE LOOKED AT THE IMAGING, I AM NOT IMPRESSED WITH ANY INFILTRATE OR LYMPHADENOPATHY. THE CHEST X-RAY LOOKS SIMILAR TO HIS PREVIOUS CHEST X-RAY IN 2021. HE ALSO HAD CTA OF THE CHEST IN 2021, WHICH DID NOT SHOW ANY VASCULAR ABNORMALITY OR LYMPHADENOPATHY. Assessment & Plan Assessment & Plan (1) Cough: Comment: THIS GENTLEMAN HAS HAD MILD INTERMITTENT COUGH IN THE PAST, WHICH MAY BE POSTINFECTIOUS ARE ALLERGY TYPE OF COUGH. THIS TIME HE HAD COUGH LASTING FOR 10-12 WEEKS AFTER A BOUT OF UPPER RESPIRATORY INFECTION IN APRIL. I THINK THIS WAS POST INFECTIOUS HYPERSENSITIVITY COUGH, WHICH COULD ALSO BE CALLED REACTIVE AIRWAYS SYNDROME. IT TOOK ABOUT 10-12 WEEKS TO RESOLVE WHICH IS THE NORMAL COURSE OF THIS SYNDRO ME. I DO NOT THINK THAT HE HAD ANY PNEUMONIA , Code(s): R05.9 - Cough, unspecified Category: Medical Plan: PATIENT IS EDUCATED ABOUT THE NATURE OF HIS COUGH WHICH IS NOW RESOLVED. HE SHOULD KEEP ALBUTEROL INHALER ON HAND AND IF HE EVER STARTS HAVING COUGH HE CAN USE 2 PUFFS Q.6 HOURS P.R.N.. HE CAN REVISIT P.R.N. IF HE HAS ANY SUSTAINED COUGH . LASTING FOR MORE THAN A FEW WEEKS (2) Pulmonary lesion of right side of chest: Code(s): J98.4 - Other disorders of lung Category: Medical Plan CHEST X-RAY APRIL 2024, READ POSSIBLE PERIHILAR INFILTRATE VERSUS MASS. BUT WHEN I REVIEW THIS X-RAY I DO NOT THINK HE HAD ANY SIGNIFICANT ABNORMALITY, COMPARED TO PREVIOUS X-RAYS. Patient Instructions: I HAVE REASSURED THE PATIENT AND EXPLAINED THE FINDINGS. I DO NOT THINK THERE IS ANY NEED TO DO CT SCAN OF THE CHEST . Coding Level of Care Code New Pt Level 3 (62505) Diagnoses Cough R05.9 Pulmonary lesion of right side of chest J98.4
--- OUTSIDE RECORDS SUMMARY | 2024-08-09 12:26 | XMS_ITS | Continuity of Care Document ---
Author Name [facility] Organization [facility] Care Team Providers Care Finisher Wallboard And Plasterboard Name Role Phone [facility] Unavailable Unavailable Problems Combined list of problems [...] [facility] REPAIR/MOD IFYING [id number] Diagnos is: ICD-10- CM Z46.1 Encount er for fitting and adjustm ent of hearing aid SELENE STOREY L 02/03 [facility] Outpatient Encounter [id number] 07/15 [facility] HEARING AID CHECK BOTH EARS [id number] Diagnos is: ICD-10- CM H90.3 Sensori neural hearing loss, TESS Anguiano 08/06 [facility] HEARING AID REPAIR/MOD IFYING [id number] Diagnos is: ICD-10- CM Z46.1 Encount er for fitting and adjustm ent of hearing aid SENIOR,COLLEEN OLE L 10/27 [facility] HEARING AID REPAIR/MOD IFYING 38294-6.63 1. Diagnos is: ICD-10- CM Z46.1 Encount er for fitting and adjustm ent of hearing aid TESS REVELES L 04/06 [facility] HEARING AID FITTING/CH ECKING [id number] Diagnos is: ICD-10- CM Z46.1 Encount er for fitting and adjustm ent of hearing aid TESS REVELES L 05/25 [facility]
--- OUTSIDE RECORDS SUMMARY | 2024-08-09 12:26 | XMS_ITS ---
Author Organization [facility] sebastian Tyrone Address [address] [facility] [place] [address] Care Team Providers Care Special Education Assistant Name Role Phone Mack Wade Primary Care Provider Unavailabl e Black, Lorene Unavailable [phone] Allergies Allergen (clinical drug ingredient) Drug/Non Drug Allergy documented on EMR Reaction Allergy Type Onset Date Status Lisinopril Unknown Drug Allergy Active REASON FOR VISIT At Risk Footcare, Painful [...] Ordered Date Performed Result Body Sit e 14201-FOLDVBO NAIL, 6 OR MORE 02/23/2024 N/A Encounters Encounter Location Date Provider Diagnosis [facility] [address] [address] 02/23/2024 Lorene Black Type 2 diabetes mellitus [...] INSTRUCTIONS.pdf) Pending Test Test Name Order Date 00762-UOBPEPG NAIL, 6 OR MORE 02/23/2024 Next Appt Details Follow Up: 1 Year, Reason: Provider Name:Lorene Perdomo , 02/21/2025 10:00:00 AM, [address] [place], [address], Procedure Notes * Category Sub-Category Detail Notes Debride Nail 6-10 Nail debridement Performance o f this nail treatment by a nonprofessional would put this patients foot and overall health at risk. Therefore, nail debridement was performed extensively to reduce/remove overall nail length, girth, thickness, subungual debris, and necrotic tissue, by manual and/or electrical means through the use of a nail nipper and/or dremel-type outer diameter grinder, to a more viable healthy nail plate or bed tissue 6-10. Silver nitrate used for any petechial bleeding as necessary. Definitive antifungal treatment options have been reviewed and discussed with the patient. The patient chooses, no pharmaceutical tx - 31339 Progress Notes * Bobby BURRISDOB:[birth year] (78 yo M)Acc No.[id number]:02/23/2024 Progress Note Patient:?Bobby Burris Provider:?Lorene Perdomo DPM :1945???Age:78 Y???Sex:Male Facundo e:02/23/2024 Address:[address] [place], [place] [id number] Pcp:Mack Wade Subjective: * Chief Complaints: * [...] riding. ?Marital status: . 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 * Medications:?TakingProAir HF A 108 (90 Base) [...] - M20.41? Plan: * Treatment: 2.?Tinea unguium?Procedure: 48180-MLRCZXT NAIL, 6 OR MORE 3.?Tinea pedis of [...] use of a nail nipper and/or dremel-type outer diameter grinder, to a more viable healthy nail plate or bed tissue 6-10. Silver nitrate used for any petechial bleeding as necessary. Definitive antifungal treatment options have been reviewed and discussed with the patient. The patient chooses, no pharmaceutical tx - 10340.? * Procedure Codes:?02690 DEBRI DE NAIL, 6 OR MORE, Modifiers: [...] Provider:?Lorene Perdomo DPM Date:?2023 Generated for Katy carney/Ang/Angela on:?08/09/2024 12:26 PM EST History and Physical Notes * [...]
--- OUTSIDE RECORDS SUMMARY | 2024-08-09 12:26 | XMS_ITS ---
Author Organization [facility] sebastian Huron Address [address] [facility] [place] [address] Care Team Providers Care Hydraulic Design Engineer Name Role Phone Mack Wade Primary Care Provider Unavailabl e Black, Lorene Unavailable [phone] Allergies Allergen (clinical drug ingredient) Drug/Non Drug [...] Problem Status W/U Status Risk Notes Problem 961333365 Hammer toe of left foot (M20.42) Active confirmed Problem 144690273 Hammer toe of right foot (M20.41) Active confirmed Vital Signs Height 5 ft 5 in in 02/20/2023 Weight 179 lbs 02/20/2023 BMI 29.78 kg/m2 02/20/2023 Blood pressure systolic 125 mm Hg 02/21/20 23 Blood pressure diastolic 80 mm Hg 023 Procedures Procedure Date Ordered Date Performed Result Body Sit e 79405-CTFRHWM NAIL, 6 OR MORE 02/20/2023 N/A Encounters Encounter Location Date Provider Diagnosis [facility] [place] [address] [place] [address] 02/20/2023 Lorene Black Type 2 diabetes mellitus [...] INSTRUCTIONS.pdf) Pending Test Test Name Order Date 72789-NEHTDMM NAIL, 6 OR MORE 02/20/2023 Next Appt Details Follow Up: 1 Year, Reason: Provider Name:Lorene Perdomo , 02/21/2025 10:00:00 AM, [address] [place], [address], Procedure Notes * Category Sub-Category Detail Notes [...] as necessary. Patient chooses, no pharmaceutical tx (54925) Progress Notes * Bobby BURRISDOB:[birth year] (77 yo M)Acc No.[id number]:02/20/2023 Progress Note Patient:?Bobby Burris Provider:?Lorene Perdomo DPM :1945???Age:77 Y???Sex:Male Facundo e:02/20/2023 Address:[address] [place], [place] [id number] Pcp:Mack Wade Subjective: * Chief Complaints: * [...] gardening, bike riding. ?Marital status: . 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 * Medications:?TakingProAir HF A 108 (90 Base) [...] - M20.41? Plan: * Treatment: 2.?Tinea unguium?Procedure: 89224-POGVBNN NAIL, 6 OR MORE 3.?Tinea pedis of [...] as necessary. Patient chooses, no pharmaceutical tx (16347).? * Procedure Codes:?87846 DEBRI DE NAIL, 6 OR MORE, Modifiers: [...] Perdomo DPM Date:?2022 Generated for Katy carney/Ang/Angela on:?08/09/2024 12:26 PM [...]
--- OUTSIDE RECORDS SUMMARY | 2024-08-09 12:26 | XMS_ITS | Patient Health Record ---
Author Organization [facility] Address [address] [facility] [place] [address] Care Team Providers Care User Interface Engineer Name Role Phone MauroStephaniefrancine Primary Care Provider Unavailabl e Black, Lorene Unavailable [phone] Allergies Allergen (clinical drug ingredient) Drug/Non Drug Allergy documented on EMR Reaction Allergy Type Onset Date Status Lisinopril Unknown Drug Allergy Active Reason For Referral No Information Medications Medication [...] Problem Type II diabetes mellitus without complication (478352850) Type 2 diabetes mellitus without complications (E11.9) Active confirmed Problem 085529333 Hammer toe of right foot (M20.41) Active confirmed Problem 418454377 Hammer toe of left foot (M20.42) Active confirmed Vital Signs Blood pressure diastolic 70 mm Hg 02/23/2024 Height 5 ft 5 in in 02/23/2024 Blood pressure systolic 140 mm Hg 02/23/2024 Weight 163 lbs 02/23/2024 BMI 27.12 kg/m2 02/23/2024 Procedures Procedure Date Ordered Date Performed Result Body Sit e 97523-ZELAQGT NAIL, 6 OR MORE 02/23/2024 N/A Encounters Encounter Location Date Provider Diagnosis [facility] [address] [address] 02/23/2024 Lorene Black Type 2 diabetes mellitus [...] Treatment Pending Test Test Name Order Date 21433-TFLGYZG NAIL, 6 OR MORE 08/12/2011 10376-BDKKXRL NAIL, 6 OR MORE 12/06/2015 52242-QVGWCYS NAIL, 6 OR MORE 12/05/2016 33768-PZPUNAP NAIL, 6 OR MORE 02/12/2018 62677-LRQTJUM NAIL, 6 OR MORE 02/11/2019 08931-XBFIDFI NAIL, 6 OR MORE 02/17/2020 27005-BVJOXXB NAIL, 6 OR MORE 02/15/2021 63178-QNXDHJO NAIL, 6 OR MORE 02/14/2022 20682-RORRXMX NAIL, 6 OR MORE 02/20/2023 66829-IHIYHON NAIL, 6 OR MORE 02/23/2024 34065- Debride <25 sq cm 12/19/2016 70015 I&D ABSCESS- SIMPLE,SINGLE 017 Next Appt Details Provider Name:Lorene Gonzalez Conor , 02/21/2025 10:00:00 AM, [address] [facility], [place], [address], Insurance Providers Payer Name Payer Address Payer Phone Subscriber Number Group Number Insured Name Patient Relationship to Insured Coverage Start Date Coverage End Date [facility] 65 Medicare Preferred [address] [place] [address] [phone] [id number] Bobby Damon Self - patient is the insured Medical (General) History Medical History History ICD Code back, hip, knee pain Arthritis diabetes High blood pressure Chicken pox Surgical History Surgery Date(Month/Year) tonsillectomy 1950 carpal tunnel surgery 03/2014 right rotator cuff 08/2018 Hospitalization History Reason Date(Month/Year) [facility]- Chest pain 03/2017
== END 2024-08-09 11:50 | disposition home or self-care (01) ==
PROVIDERS: PCP Internal Medicine; Visit Provider Internal Medicine
DX: R05.9 Cough, unspecified (principal); J98.4 Other disorders of lung
CPT/HCPCS: 99203

== ENCOUNTER → 2024-08-09 10:39 | Outpatient (BNVA) | payer MEDICARE, SELFPAY | PROVIDERS: PCP Internal Medicine; Visit Provider Internal Medicine | DX: R05.9 Cough, unspecified (principal); J98.4 Other disorders of lung | CPT/HCPCS: 99202 ==

== ENCOUNTER 2024-08-10 09:27 | Outpatient (REF) | payer MEDICARE, SELFPAY ==
--- OUTSIDE RECORDS SUMMARY | 2024-08-10 10:32 | XMS_ITS ---
Author Organization [facility] sebastian [place] Address [address] [place] [address] Care Team Providers Care Targeting Acquisition Officer Name Role Phone Mack Wade Primary Care Provider Unavailabl e Black, Lorene Unavailable [phone] Allergies Allergen (clinical drug ingredient) Drug/Non Drug [...] Ordered Date Performed Result Body Sit e 13557-YCLRXUM NAIL, 6 OR MORE 02/23/2024 N/A Encounters Encounter Location Date Provider Diagnosis [facility] [address] [address] 02/23/2024 Lorene Black Type 2 diabetes mellitus [...] INSTRUCTIONS.pdf) Pending Test Test Name Order Date 05220-KDOMMNA NAIL, 6 OR MORE 02/23/2024 Next Appt Details Follow Up: 1 Year, Reason: Provider Name:Lorene Perdomo , 02/21/2025 10:00:00 AM, [address] [place], [address], Procedure Notes * Category Sub-Category Detail Notes Debride Nail 6-10 Nail debridement Performance o f this nail treatment by a nonprofessional would put this patients foot and overall health at risk. Therefore, nail debridement was performed extensively to reduce/remove overall nail length, girth, thickness, subungual debris, and necrotic tissue, by manual and/or electrical means through the use of a nail nipper and/or dremel-type microgrinder operator, to a more viable healthy nail plate or bed tissue 6-10. Silver nitrate used for any petechial bleeding as necessary. Definitive antifungal treatment options have been reviewed and discussed with the patient. The patient chooses, no pharmaceutical tx - 28625 Progress Notes * Bobby BURRISDOB:[birth year] (78 yo M)Acc No.[id number]:02/23/2024 Progress Note Patient:?Bobby Burris Provider:?Lorene Perdomo DPM :1945???Age:78 Y???Sex:Male Facundo e:02/23/2024 Address:[address] [place], [place] [phone] Pcp:Mack Wade Subjective: * Chief Complaints: * [...] gardening, bike riding. ?Marital status: . 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 * Medications:?TakingProAir HF A 108 (90 Base) [...] - M20.41? Plan: * Treatment: 2.?Tinea unguium?Procedure: 13370-ASODNQU NAIL, 6 OR MORE 3.?Tinea pedis of [...] use of a nail nipper and/or dremel-type microgrinder operator, to a more viable healthy nail plate or bed tissue 6-10. Silver nitrate used for any petechial bleeding as necessary. Definitive antifungal treatment options have been reviewed and discussed with the patient. The patient chooses, no pharmaceutical tx - 71017.? * Procedure Codes:?43830 DEBRI DE NAIL, 6 OR MORE, Modifiers: [...] Perdomo DPM Date:?2023 Generated for Katy carney/Ang/Angela on:?08/10/2024 10:32 AM EST History and Physical Notes * HPI [...]
--- OUTSIDE RECORDS SUMMARY | 2024-08-10 10:32 | XMS_ITS | Patient Health Record ---
Author [facility] Address [address] [facility] [place] [address] Care Team Providers Care Drying Tumbler Operator Name Role Phone MauroStephaniefrancine Primary Care Provider Unavailabl e Black, Lorene Unavailable [phone] Allergies Allergen (clinical drug ingredient) Drug/Non Drug [...] Problem Type II diabetes mellitus without complication (950483501) Type 2 diabetes mellitus without complications (E11.9) Active confirmed Problem 427707436 Hammer toe of right foot (M20.41) Active confirmed Problem 568901918 Hammer toe of left foot (M20.42) Active confirmed Vital Signs Blood pressure diastolic 70 mm Hg 02/23/2024 Height 5 ft 5 in in 02/23/2024 Blood pressure systolic 140 mm Hg 02/23/2024 Weight 163 lbs 02/23/2024 BMI 27.12 kg/m2 02/23/2024 Procedures Procedure Date Ordered Date Performed Result Body Sit e 32629-ZXLJDAO NAIL, 6 OR MORE 02/23/2024 N/A Encounters Encounter Location Date Provider Diagnosis [facility] [address] [address] 02/23/2024 Lorene Black Type 2 diabetes mellitus [...] Treatment Pending Test Test Name Order Date 69035-MIUCCZD NAIL, 6 OR MORE 08/12/2011 47033-BQQMJJN NAIL, 6 OR MORE 12/06/2015 37307-BLINMWF NAIL, 6 OR MORE 12/05/2016 62006-TZXPIWT NAIL, 6 OR MORE 02/12/2018 49774-MEPDNKE NAIL, 6 OR MORE 02/11/2019 66044-CMEOVTR NAIL, 6 OR MORE 02/17/2020 75929-TEGWXRW NAIL, 6 OR MORE 02/15/2021 79090-NIADHWD NAIL, 6 OR MORE 02/14/2022 20862-QSBOSIC NAIL, 6 OR MORE 02/20/2023 74438-RFFSYML NAIL, 6 OR MORE 02/23/2024 38370- Debride <25 sq cm 12/19/2016 44492 I&D ABSCESS- SIMPLE,SINGLE 017 Next Appt Details Provider Name:Lorene Gonzalez oCnor , 02/21/2025 10:00:00 AM, [address] [facility], [place], [address], Insurance Providers Payer Name Payer Address Payer Phone Subscriber Number Group Number Insured Name Patient Relationship to Insured Coverage Start Date Coverage End Date [facility] 65 Medicare Preferred [address] [place] [address] [id number] Bobby Damon Self - patient is the insured Medical (General) History Medical History History ICD Code back, hip, knee pain Arthritis diabetes High blood pressure Chicken pox Surgical History Surgery Date(Month/Year) tonsillectomy 1950 carpal tunnel surgery 03/2014 right rotator cuff 08/2018 Hospitalization History Reason Date(Month/Year) [facility]- Chest pain 03/2017
--- OUTSIDE RECORDS SUMMARY | 2024-08-10 10:32 | XMS_ITS ---
Author Organization [facility] sebastian [place] Address [address] [facility] [place] [address] Care Team Providers Care Cripple Chaser Name Role Phone Mack Wade Primary Care Provider Unavailabl e Black, Lorene Unavailable [phone] Allergies Allergen (clinical drug ingredient) Drug/Non Drug [...] Problem Status W/U Status Risk Notes Problem 062549505 Hammer toe of left foot (M20.42) Active confirmed Problem 109120532 Hammer toe of right foot (M20.41) Active confirmed Vital Signs Height 5 ft 5 in in 02/20/2023 Weight 179 lbs 02/20/2023 BMI 29.78 kg/m2 02/20/2023 Blood pressure systolic 125 mm Hg 02/21/20 23 Blood pressure diastolic 80 mm Hg 023 Procedures Procedure Date Ordered Date Performed Result Body Sit e 71256-CDYIZHE NAIL, 6 OR MORE 02/20/2023 N/A Encounters Encounter Location Date Provider Diagnosis [facility] [place] [address] [place] [address] 02/20/2023 Lorene Black Type 2 diabetes mellitus [...] INSTRUCTIONS.pdf) Pending Test Test Name Order Date 54464-CNWRMYM NAIL, 6 OR MORE 02/20/2023 Next Appt Details Follow Up: 1 Year, Reason: Provider Name:Lorene Perdomo , 02/21/2025 10:00:00 AM, [address] [place], [address], Procedure Notes * Category Sub-Category Detail Notes [...] as necessary. Patient chooses, no pharmaceutical tx (82655) Progress Notes * Bobby BURRISDOB:[birth year] (77 yo M)Acc No.[id number]:02/20/2023 Progress Note Patient:?Bobby Burris Provider:?Lorene Perdomo DPM :1945???Age:77 Y???Sex:Male Facundo e:02/20/2023 Address:[address] [place], [place] [address] Pcp:Mack Wade Subjective: * Chief Complaints: * [...] gardening, bike riding. ?Marital status: . 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 * Medications:?TakingProAir HF A 108 (90 Base) [...] - M20.41? Plan: * Treatment: 2.?Tinea unguium?Procedure: 05328-SPTJBQJ NAIL, 6 OR MORE 3.?Tinea pedis of [...] as necessary. Patient chooses, no pharmaceutical tx (43813).? * Procedure Codes:?64866 DEBRI DE NAIL, 6 OR MORE, Modifiers: [...] Provider:?Lorene Perdomo DPM Date:?2022 Generated for Katy carney/Ang/Felibertoitting on:?08/10/2024 10:32 AM EST History and Physical [...]
--- OUTSIDE RECORDS SUMMARY | 2024-08-10 10:33 | XMS_ITS | Continuity of Care Document ---
Author Name [facility] Organization [facility] Care Team Providers Care Clin Nurse Spec Name Role Phone [facility] Unavailable Unavailable Problems Combined list of problems [...] [facility] HEARING AID REPAIR/MOD IFYING [id number] [id number] Diagnos is: ICD-10- CM Z46.1 Encount er for fitting and adjustm ent of hearing aid SELENE STOREY L 02/03 [facility] Outpatient Encounter [id number] 07/15 [facility] HEARING AID CHECK BOTH EARS 72959-7.63 [id number] Diagnos is: ICD-10- CM H90.3 Sensori neural hearing loss, TESS Anguiano 08/06 [facility] HEARING AID REPAIR/MOD IFYING [id number] Diagnos is: ICD-10- CM Z46.1 Encount er for fitting and adjustm ent of hearing aid SENIOR,COLLEEN OLE L 10/27 [facility] HEARING AID REPAIR/MOD IFYING 30247-1.63 1. Diagnos is: ICD-10- CM Z46.1 Encount er for fitting and adjustm ent of hearing aid TESS REVELES L 04/06 [facility] HEARING AID FITTING/CH ECKING [id number] [id number] Diagnos is: ICD-10- CM Z46.1 Encount er for fitting and adjustm ent of hearing aid TESS REVELES L 05/25 [facility]
[2024-08-10 13:19] LABS: MANUAL DIFF FLAG NO
[2024-08-10 13:28] LABS: Basophils Absolute Auto 0.1 X10*3/uL (0.0-0.2); Basophils Percent Auto 0.5 % (0-2); Eosinophils Absolute Auto 0.2 X10*3/uL (0.0-0.4); Eosinophils Percent Auto 1.6 % (0-4); Hematocrit 43.5 % (42.0-52.0); Hemoglobin 14.4 g/dl (14.0-18.0); Imm Gran Abs Auto 0.05 X10*3/uL (0.00-0.03); Imm Gran Pct Auto 0.5 % (0.0-0.4); Lymphocytes Absolute Auto 1.5 X10*3/uL (1.2-4.9); Lymphocytes Percent Auto 16.2 % (20-40); Mean Corpuscular HGB Conc 33.1 g/dl (31.0-36.0); Mean Corpuscular Hemoglobin 29.6 pg (27.0-33.0); Mean Corpuscular Volume 89.3 fL (80.0-98.0); Mean Platelet Volume 9.8 fL (9.4-12.4); Monocytes Absolute Auto 0.8 X10*3/uL (0.1-1.2); Neutrophils Percent Auto 73.2 % (45-73); Platelet Count 302 X10*3/uL (160-400); Red Blood Count 4.87 X10*6/uL (4.60-5.80); Red Cell Distribution Width 12.7 % (11.0-16.0); White Blood Count 9.5 X10*3/uL (4.8-10.8)
[2024-08-10 13:37] LABS: Appearance Urine Clear; Color Urine Yellow; Glucose Urine UA Negative (Negative); Leukocyte Esterase Urine Negative (Negative); Nitrite Urine Negative (Negative); PH 5.5 (5.0-9.0); Urine Blood Negative (Negative); Urine Ketones Negative (Negative); Urine Protein Negative (Neg-Trace)
[2024-08-10 13:39] LABS: Estimated Average Glucose 128 mg/dL; Hemoglobin A1C 163.3579 umol/L; Hemoglobin A1c % 6.1 % (<6.0); Total Hemoglobin (HGBA1C) 3780.3619 umol/L
[2024-08-10 13:43] LABS: Alanine Aminotransferase 26 U/L (0-40); Albumin Level 4.2 g/dL (3.5-5.0); Alkaline Phosphatase 75 U/L (39-117); Anion Gap 14 (12-20); Aspartate Amino Transferase 31 U/L (5-37); Bilirubin Total 0.4 mg/dL (0.0-1.0); Blood Urea Nitrogen 21 mg/dL (9-16); Calcium 9.3 mg/dL (8.4-10.2); Carbon Dioxide 28 mmol/L (22-29); Chloride 103 mmol/L (96-108); Estimated Glomerular Filt Rate > 60; Glucose Random 162 mg/dL (60-115); Magnesium 1.8 mg/dL (1.6-2.6); Potassium 4.1 mmol/L (3.3-5.1); Sodium 141 mmol/L (135-145); Total Protein 7.4 g/dL (6.5-8.0)
[2024-08-10 14:05] LABS: Thyroid Stimulating Hormone 0.45 uIU/mL (0.32-4.0)
== END 2024-08-10 09:28 | disposition home or self-care (01) ==
LOC: HO.HMGCLDS 09:27
PROVIDERS: PCP Internal Medicine; Visit Provider Internal Medicine
DX: R10.11 Right upper quadrant pain (principal); R30.0 Dysuria; Z13.1 Encounter for screening for diabetes mellitus
CPT/HCPCS: 36415; 80053; 81003; 83036; 83735; 84439; 84443; 85025

== ENCOUNTER 2024-08-20 11:12 | Outpatient (REF) | payer MEDICARE, SELFPAY ==
--- NOTE | ~2024-08-20 | US_ITS ---
EXAMINATION: US ABDOMEN COMPLETE CLINICAL INFORMATION: Right upper quadrant pain, abnormal blood chemistries. COMPARISON: 08/28/2016. TECHNIQUE: Real-time imaging of the abdominal viscera. FINDINGS: PANCREAS: Visualized portions are unremarkable. ABDOMINAL AORTA: The proximal, mid, and distal segments are normal in caliber. INFERIOR VENA CAVA: Visualized portions are normal. LIVER: The liver is normal in size. Right hepatic lobe measures 14.2 cm. The liver contour is normal. Mild increased parenchymal echogenicity diffusely, most likely representing mild steatosis. No focal hepatic lesion. There is no intrahepatic biliary duct dilatation seen. GALLBLADDER: The gallbladder is physiologically distended without evidence of stones, sludge, polyps, wall thickening or pericholecystic fluid. Negative sonographic Burr's sign. COMMON BILE DUCT: Normal in caliber measuring 0.4 cm in diameter. RIGHT KIDNEY: No hydronephrosis. No renal calculi or focal parenchymal lesions. The kidney measures 9.3 cm in maximum dimension. LEFT KIDNEY: No hydronephrosis. No renal calculi or focal parenchymal lesions. The kidney measures 9.8 cm in maximum dimension. SPLEEN: The spleen measures 12.4 cm in maximum dimension. FREE FLUID: None. US/US abdomen complete IMPRESSION: 1. Mildly increased echogenicity of the liver, most consistent with mild fatty infiltration. No focal liver abnormality. No biliary dilatation. 2. Normal gallbladder. 3. Remainder of the exam is normal. Electronically signed by: Kem Adan MD 08/20/2024 11:51 AM EDT
--- OUTSIDE RECORDS SUMMARY | 2024-08-20 12:58 | XMS_ITS | Patient Health Record ---
[facility] Address [address] [facility] [place] [address] Care Team Providers Care Catering Staff Member Name Role Phone MauroJosephinesherrill Primary Care Provider Unavailabl e Black, Lorene Unavailable [phone] Allergies Allergen (clinical drug ingredient) Drug/Non Drug [...] Problem Type II diabetes mellitus without complication (727941072) Type 2 diabetes mellitus without complications (E11.9) Active confirmed Problem 252705327 Hammer toe of right foot (M20.41) Active confirmed Problem 302188167 Hammer toe of left foot (M20.42) Active confirmed Vital Signs Blood pressure diastolic 70 mm Hg 02/23/2024 Height 5 ft 5 in in 02/23/2024 Blood pressure systolic 140 mm Hg 02/23/2024 Weight 163 lbs 02/23/2024 BMI 27.12 kg/m2 02/23/2024 Procedures Procedure Date Ordered Date Performed Result Body Sit e 41359-WALAYQA NAIL, 6 OR MORE 02/23/2024 N/A Encounters Encounter Location Date Provider Diagnosis [facility] [place] [address] [place] [address] 02/23/2024 Lorene Black Type 2 diabetes mellitus [...] Treatment Pending Test Test Name Order Date 06301-SWVRPDO NAIL, 6 OR MORE 08/12/2011 45177-SKPOLCC NAIL, 6 OR MORE 12/06/2015 70105-LSLODUF NAIL, 6 OR MORE 12/05/2016 29619-NTVKJZL NAIL, 6 OR MORE 02/12/2018 99075-ZCFHAFR NAIL, 6 OR MORE 02/11/2019 84475-TEPEXPF NAIL, 6 OR MORE 02/17/2020 27452-ROMLBAF NAIL, 6 OR MORE 02/15/2021 54231-CGJJDPA NAIL, 6 OR MORE 02/14/2022 79091-CFACAEQ NAIL, 6 OR MORE 02/20/2023 76252-VVGXHAY NAIL, 6 OR MORE 02/23/2024 74069- Debride <25 sq cm 12/19/2016 74452 I&D ABSCESS- SIMPLE,SINGLE 017 Next Appt Details Provider Name:Lorene Gonzalez Conor , 02/21/2025 10:00:00 AM, [address] [facility], [place], [address], Insurance Providers Payer Name Payer Address Payer Phone Subscriber Number Group Number Insured Name Patient Relationship to Insured Coverage Start Date Coverage End Date [facility] 65 Medicare Preferred [address] [place] [address] [id number] Bobby Damon Self - patient is the insured Medical (General) History Medical History History ICD Code back, hip, knee pain Arthritis diabetes High blood pressure Chicken pox Surgical History Surgery Date(Month/Year) tonsillectomy 195 carpal tunnel surgery 03/2014 right rotator cuff 08/2018 Hospitalization History Reason Date(Month/Year) [facility]- Chest pain 03/2017
--- OUTSIDE RECORDS SUMMARY | 2024-08-20 12:58 | XMS_ITS | Continuity of Care Document ---
Author Name [facility] Organization [facility] Care Team Providers Care French Edge Operator Name Role Phone [facility] Unavailable Unavailable Problems Combined list of problems [...] Source [facility] Outpatient Encounter [id number] 07/15 [facility] HEARING AID CHECK BOTH EARS 65048-4.63 [id number] Diagnos is: ICD-10- CM H90.3 Sensori neural hearing loss, TESS Anguiano L 08/06 [facility] HEARING AID REPAIR/MOD IFYING [id number] Diagnos is: ICD-10- CM Z46.1 Encount er for fitting and adjustm ent of hearing aid COLLEEN PEREIRA L 10/27 [facility] HEARING AID REPAIR/MOD IFYING [id number] [id number] Diagnos is: ICD-10- CM Z46.1 Encount er for fitting and adjustm ent of hearing aid TESS REVELES L 04/06 [facility] HEARING AID FITTING/CH ECKING [id number] [id number] Diagnos is: ICD-10- CM Z46.1 Encount er for fitting and adjustm ent of hearing aid TESS REVELES L 05/25 [facility]
--- OUTSIDE RECORDS SUMMARY | 2024-08-20 12:58 | XMS_ITS | Encounter Summary ---
Author Name [facility] [place] Address [address] [place] [address] Support Name Relationship Address Phone DAYTONLATONIA Next of Kin [address] [place] [address] DAYTONLATONIA Emergency Contact [address] [place] [address] [...] Souza's Name Patient's Relationship to Policy Souza [facility] (WNR) MEDICARE ADVANTAGE MCR (WNR) Jun 09, 2020 [id number] [place],DO NALD PATIENT [facility] (WNR) MEDICARE ADVANTAGE MCR (WNR) Jun 09, 2023 [id number] [place],DO NALD PATIENT [facility] (WNR) MEDICARE ADVANTAGE MCR (WNR) Jun 09, 2020 [id number] [phone] DAYTON,DO NALD PATIENT Selected Encounter This section includes the information on record at [place] for the Encounter. Date/Time Encounter Type Encounter Description Reason Provider Source May 25, 2024 11:00 AM HEARING AID FITTING/CHECKING AUDIOLOGY ICD-10-CM Z46.1 Encounter for fitting and adjustment of hearing aid LAVERN REVELES Encounter Template Text not used by [place] Assessments - Encounter Diagnoses This section includes the primary and secondary diagnoses documented for the Encounter. Date/Time Primary/Secondary Diagnosis Diagnosis Name Provider Source May 25, 2024 11:27 AM PRIMARY Encounter for fitting and adjustment of hearing aid SHYLA MCINTYRE [facility] May 25, 2024 11:27 AM SECONDARY Sensorineural hearing loss, bilateral SHYLA MCINTYRE [facility] Encounter Notes: All associated encounter notes This section contains the clinical notes associated to the Encounter. Date/Time Encounter Note(s) Provider Source May 25, 2024 07:47 AM AUDIOLOGY NOTE: LOCAL TITLE: AUDIOLOGY HEALTH BARREL ASSEMBLER HELPER STANDARD TITLE: AUDIOLOGY NOTE DATE OF NOTE: MAY 25, 2024@07:47 ENTRY DATE: MAY 25, 2024@07:47:33 AUTHOR: MONCHO MCINTYRE COSIGNER: LAVERN REVELES URGENCY: STATUS: COMPLETED May 25, 2024 History/Background: [place] was seen for a hearing aid follow up, unaccompanied. The presented today reporting his right hearing aid is hurting his ear. The noted he sent the right aid out for repair and since he received it back he is getting pain in the ear after wearing the hearing aid for a couple hours. Hearing aids: Bita EVOLV AI [facility] Serial Numbers: [id number] Battery size: Rechargeable Date Issued: 08/19/2022 Hearing aid check: The right hearing aid was cleaned and checked. Replaced the 3/60 car inspector with a 4/60 car inspector but that was too long. Modified the right earmold by grinding down. The noted the earmold no longer felt as bulky in the ear. He will try wearing with this modification and contact the clinic if he continues to have discomfort. The [place] asked for assistance re-pairing his hearing aids to his Apple smartphone. The hearing aids were paired successfully. Plan: The [place] will contact the clinic as needed. /cody/ MONCHO MCINTYRE Audiology Health Standpipe Tender Signed: 05/25/2024 11:39 /cody/ LAVERN Schroeder CCC-A CHIEF, AUDIOLOGY/OPERATING TABLE ASSEMBLER Cosigned: 05/25/2024 13:21 MONCHO MCINTYRE [facility]
--- OUTSIDE RECORDS SUMMARY | 2024-08-20 12:58 | XMS_ITS ---
Author Name [facility] [place] Organization [facility] [place] [facility] [place] Address [address] [place] [address] Support Name Relationship Address Phone DAYTONLATONIA Talamantes Next of Kin [address] [place] [...] Souza's Name Patient's Relationship to Policy Souza [facility] (WNR) MEDICARE ADVANTAGE MCR (WN) Jun 09, 2020 [id number] [phone] DAY[place],DO NALD PATIENT [facility] (WNR) MEDICARE ADVANTAGE MCR (WNR) Jun 09, 2023 [id number] [place],DO NALD PATIENT [facility] (WNR) MEDICARE ADVANTAGE MCR (WNR) Jun 09, 2020 [id number] DAYTON,DO NALD PATIENT Selected Encounter This section includes the information on record at [place] for the Encounter. Date/Time Encounter Type Encounter Description Reason Provider Source October 28, 2023 10:30 AM HEARING AID REPAIR/MODIFYIN G AUDIOLOGY ICD-10-CM Z46.1 Encounter for fitting and adjustment of hearing aid SUDEEP PEREIRA Encounter Template Text not used by [place] Assessments - Encounter Diagnoses This section includes the primary and secondary diagnoses documented for the Encounter. Date/Time Primary/Secondary Diagnosis Diagnosis Name Provider Source October 28, 2023 10:47 AM PRIMARY Encounter for fitting and adjustment of hearing aid SUDEEP PEREIRA [facility] October 28, 2023 10:47 AM SECONDARY Sensorineural hearing loss, bilateral SUDEEP PEREIRA [facility] Plan of Treatment: Future Appointments (+ 6 months) and Future Tests (+/- 45 days) The Plan of Treatment section includes future care activities for the patient from all [place] treatmentfacilities. This section includes future appointments and future orders which are active, pending or scheduled. Future Appointments This section includes appointments that were scheduled to occur 6 months from the date of the Encounter, up to a maximum of 20 appointments. The data comes from all [place] treatment facilities. Appointment Date/Time Appointment Type Appointme nt Facility Name Apr 06, 2024 10:00 AM AMBULATORY - REHAB MEDICIN E [facility] Encounter Notes: All associated encounter notes This section contains the clinical notes associated to the Encounter. Date/Time Encounter Note(s) Provider Source October 28, 2023 07:56 AM AUDIOLOGY E & M NO TE: [facility] TITLE: AUDIOLOGY CLINIC STANDARD TITLE: AUDIOLOGY E & M NOTE DATE OF NOTE: OCTOBER 28, 2023@07:56 ENTRY DATE: OCTOBER 28, 2023@07:56:25 AUTHOR: SUDEEP PEREIRA EXP COSIGNER: URGENCY: STATUS: COMPLETED Dx CODE: Z46.1-Encounter for Fitting/Adjusting Hearing Aid(s); H90.3- Sensorineural Hearing Loss, Bilateral APPOINTMENT TYPE: Hearing Aid Check HISTORY/BACKGROUND: [place] was seen for a hearing aid follow-up appointment, unaccompanied. He was fit on 08/19/22 with ERIN Valdes. He scheduled today's appointment noting the right hearing aid has been intermittent. Both hearing aids were cleaned and checked. Microphone covers and wax guards were replaced. Both hearing aids are in good working condition and intermittency could not be replicated in the office today. Right dobby loom fixer was replaced and was advised that if the problem continues [...] Applicable NA /cody/ ZANDER ALEXANDRE, CCC-A STAFF CAMPGROUND CLEANING ATTENDANT Signed: 10/28/2023 10:48 SUDEEP PEREIRA [facility]
--- OUTSIDE RECORDS SUMMARY | 2024-08-20 12:58 | XMS_ITS ---
Author Organization [facility] sebastian [place] Address [address] [facility] [place] [address] Care Team Providers Care Defence Intelligence Analyst Name Role Phone Mack Wade Primary Care Provider Unavailabl e Black, Lorene Unavailable [phone] Allergies Allergen (clinical drug ingredient) Drug/Non Drug [...] Ordered Date Performed Result Body Sit e 31336-RXVRBGK NAIL, 6 OR MORE 02/23/2024 N/A Encounters Encounter Location Date Provider Diagnosis [facility] [place] [address] [place] [address] 02/23/2024 Lorene Black Type 2 diabetes mellitus [...] INSTRUCTIONS.pdf) Pending Test Test Name Order Date 66047-JHHNGNA NAIL, 6 OR MORE 02/23/2024 Next Appt Details Follow Up: 1 Year, Reason: Provider Name:Lorene Perdomo , 02/21/2025 10:00:00 AM, [address] [place], [address], Procedure Notes * Category Sub-Category Detail Notes Debride Nail 6-10 Nail debridement Performance o f this nail treatment by a nonprofessional would put this patients foot and overall health at risk. Therefore, nail debridement was performed extensively to reduce/remove overall nail length, girth, thickness, subungual debris, and necrotic tissue, by manual and/or electrical means through the use of a nail nipper and/or dremel-type chicle grinder feeder, to a more viable healthy nail plate or bed tissue 6-10. Silver nitrate used for any petechial bleeding as necessary. Definitive antifungal treatment options have been reviewed and discussed with the patient. The patient chooses, no pharmaceutical tx - 57362 Progress Notes * Bobby BURRISDOB:[birth year] (78 yo M)Acc No.[id number]:02/23/2024 Progress Note Patient:?Bobby Burris Provider:?Lorene Perdomo DPM :1945???Age:78 Y???Sex:Male Facundo e:02/23/2024 Address:[address] [place], [place] [address] Pcp:Mack Wade Subjective: * Chief Complaints: * [...] gardening, bike riding. ?Marital status: . 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 * Medications:?TakingProAir HF A 108 (90 Base) [...] - M20.41? Plan: * Treatment: 2.?Tinea unguium?Procedure: 83825-IZQYZKV NAIL, 6 OR MORE 3.?Tinea pedis of [...] use of a nail nipper and/or dremel-type chicle grinder feeder, to a more viable healthy nail plate or bed tissue 6-10. Silver nitrate used for any petechial bleeding as necessary. Definitive antifungal treatment options have been reviewed and discussed with the patient. The patient chooses, no pharmaceutical tx - 17707.? * Procedure Codes:?01398 DEBRI DE NAIL, 6 OR MORE, Modifiers: [...] Provider:?Lorene Perdomo DPM Date:?2023 Generated for Katy carney/Ang/eTransmitting on:?08/20/2024 12:58 PM EDT History and Physical Notes * HPI (History [...]
--- OUTSIDE RECORDS SUMMARY | 2024-08-20 12:58 | XMS_ITS ---
Author Organization [facility] sebastian [place] Address [address] [facility] [place] [address] Care Team Providers Care Grave Digger Name Role Phone Mack Wade Primary Care Provider Unavailabl e Black, Lorene Unavailable [phone] Allergies Allergen (clinical drug ingredient) Drug/Non Drug [...] Problem Status W/U Status Risk Notes Problem 374566197 Hammer toe of left foot (M20.42) Active confirmed Problem 966429020 Hammer toe of right foot (M20.41) Active confirmed Vital Signs Height 5 ft 5 in in 02/20/2023 Weight 179 lbs 02/20/2023 BMI 29.78 kg/m2 02/20/2023 Blood pressure systolic 125 mm Hg 02/21/20 23 Blood pressure diastolic 80 mm Hg 023 Procedures Procedure Date Ordered Date Performed Result Body Sit e 26341-DLMFZWR NAIL, 6 OR MORE 02/20/2023 N/A Encounters Encounter Location Date Provider Diagnosis [facility] [place] [address] [place] [address] 02/20/2023 Lorene Black Type 2 diabetes mellitus [...] INSTRUCTIONS.pdf) Pending Test Test Name Order Date 01160-[id number] NAIL, 6 OR MORE 02/20/2023 Next Appt Details Follow Up: 1 Year, Reason: Provider Name:Lorene Perdomo , 02/21/2025 10:00:00 AM, [address] [place], [address], Procedure Notes * Category Sub-Category Detail Notes [...] as necessary. Patient chooses, no pharmaceutical tx (07821) Progress Notes * Bobby BURRISDOB:[birth year] (77 yo M)Acc No.[id number]:02/20/2023 Progress Note Patient:?Bobby Burris Provider:?Lorene Perdomo DPM :1945???Age:77 Y???Sex:Male Facundo e:02/20/2023 Address:[address] [place], [place] [address] Pcp:Mack Wade Subjective: * Chief Complaints: * [...] gardening, bike riding. ?Marital status: . 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 * Medications:?TakingProAir HF A 108 (90 Base) [...] - M20.41? Plan: * Treatment: 2.?Tinea unguium?Procedure: 59915-BSDKUFF NAIL, 6 OR MORE 3.?Tinea pedis of [...] as necessary. Patient chooses, no pharmaceutical tx (47974).? * Procedure Codes:?35657 DEBRI DE NAIL, 6 OR MORE, Modifiers: [...] Perdomo DPM Date:?2022 Generated for Katy carney/Ang/Angela on:?08/20/2024 12:58 PM EDT History and Physical [...]
--- OUTSIDE RECORDS SUMMARY | 2024-08-20 12:58 | XMS_ITS | Encounter Summary ---
Author Name [facility] [place] [facility] [place] Address [address] [place] [address] Support Name Relationship Address Phone DAYTONDARRENLATONIA Next [...] Souza's Name Patient's Relationship to Policy Souza [facility] (WNR) MEDICARE ADVANTAGE MCR (WNR) Jun 09, 2020 [id number] [place],DO NALD PATIENT [facility] (WNR) MEDICARE ADVANTAGE MCR (WNR) Jun 09, 2023 [id number] [place],DO NALD PATIENT [facility] (WNR) MEDICARE [facility] (WNR) Jun 09, 2020 [id number] DAYTON,DO NALD PATIENT Selected Encounter This section includes the information on record at [place] for the Encounter. Date/Time Encounter Type Encounter Description Reason Provider Source Apr 06, 2024 10:00 AM HEARING AID REPAIR/MODIFYING AUDIOLOGY ICD-10-CM Z46.1 Encounter for fitting and adjustment of hearing aid LAVERN REVELES Encounter Template Text not used by [place] Assessments - Encounter Diagnoses This section includes the primary and secondary diagnoses documented for the Encounter. Date/Time Primary/Secondary Diagnosis Diagnosis Name Provider Source Apr 06, 2024 10:28 AM PRIMARY Encounter for fitting and adjustment of hearing aid ABDIRIZAKLAVERN DUKES [facility] Apr 06, 2024 10:28 AM SECONDARY Sensorineural hearing loss, bilateral ABDIRIZAKLAVERN [facility] Plan of Treatment: Future Appointments (+ 6 months) and Future Tests (+/- 45 days) The Plan of Treatment section includes future care activities for the patient from all [place] treatmentfacilities. This section includes future appointments and future orders which are active, pending or scheduled. Future Appointments This section includes appointments that were scheduled to occur 6 months from the date of the Encounter, up to a maximum of 20 appointments. The data comes from all [place] treatment facilities. Appointment Date/Time Appointment Type Appointme nt Facility Name May 25, 2024 11:00 AM AMBULATORY - REHAB MEDICIN E [facility] Encounter Notes: All associated encounter notes This section contains the clinical notes associated to the Encounter. Date/Time Encounter Note(s) Provider Source Apr 06, 2024 10:22 AM AUDIOLOGY E & M NO TE: [facility] TITLE: AUDIOLOGY CLINIC STANDARD TITLE: AUDIOLOGY E & M NOTE DATE OF NOTE: APR 06, 2024@10:22 ENTRY DATE: APR 06, 2024@10:22:57 AUTHOR: LAVERN REVELES EXP COSIGNER: URGENCY: STATUS: COMPLETED [place] was seen April 06, 2024 reporting right aid only holding charge for a couple hours and left aid too loud so he rarely wears it. Right aid wax guard plugged but [place] reporting he is hearing battery so this is not cause of charging issue. Both aids checked and cleaned. Receivers and microphone covers replaced. Millinery Copyist cleaned and both aids show as charging on equine internship. Desiccant replaced and new brush. Aids reprogrammed [...] returns to him still not holding charge, equine internship may be defective and he is told to call us if this is case and we will order him a new equine internship. Patient Education Education provided on the following topics: See above Education provided to: P Response to Education: VU Christine Patient P Family F Significant Other SO Verbalizes Understanding VU Returns Demonstration RD Performs Independently PI Lacks Comprehension LC Refused Education RE Not Applicable NA /cody/ LAVERN Schroeder, CCC-Carlos CHIEF, AUDIOLOGY/REGISTRATION REPRESENTATIVE Signed: 04/06/2024 10:28 LAVERN REVELES [facility]
== END 2024-08-20 11:13 | disposition home or self-care (01) ==
LOC: HO.HMGCX 11:12
PROVIDERS: PCP Internal Medicine; Visit Provider Internal Medicine
DX: R10.11 Right upper quadrant pain (principal); R79.89 Other specified abnormal findings of blood chemistry
CPT/HCPCS: 76700

== ENCOUNTER → 2024-08-20 11:14 | Outpatient (BNV) | payer MEDICARE, SELFPAY | PROVIDERS: PCP Internal Medicine; Visit Provider Radiology Diagnostic Radiology | DX: K76.0 Fatty (change of) liver, not elsewhere classified (principal) | CPT/HCPCS: 76700 ==

== ENCOUNTER 2024-10-11 11:00 | Outpatient (AMB) | payer MEDICARE, SELFPAY ==
[2024-10-11 11:04] VITALS: BP 118/68; PULSE 71; O2SAT 95; BMI 28.0
--- NOTE | 2024-10-11 11:04 | MHC.PC.OV ---
Vital Signs 10/11/24 11:04 Height 5 ft 4 in Weight 163 lb BMI 28.0 BP 118/68 Blood Pressure Location Lt brachial Position Sitting Pulse 71 Pulse Source Pulse Oximeter Pulse Oximetry (%) 95 Oxygen Delivery Method Room Air Intake Visit Reasons: cough, BPH Allergies lisinopril Allergy (Mild, Verified 10/11/24 11:05) cough losartan Adverse Reaction (Intermediate, Verified 10/11/24 11:05) Cough Medication List - Last Reconciled 10/11/24 by Mack Wade MD albuterol sulfate 90 mcg/actuation (Ventolin HFA) 1 inh inhalation QID PRN ascorbic acid (vitamin C) 500 mg PO aspirin (Adult Aspirin Regimen) 81 mg PO DAILY atorvastatin 10 mg PO DAILY azithromycin (Zithromax) For 250 mg dose pack: take 500 mg today (day 1), then 250 mg for 4 days (days 2-5) PO benzonatate 200 mg PO BID-TID PRN blood pressure monitor (Blood Pressure Kit) As directed cetirizine (Zyrtec) 10 mg PO DAILY PRN cholecalciferol (vitamin D3) 25 mcg PO DAILY cyanocobalamin (vitamin B-12) 1,000 mcg PO DAILY diclofenac sodium 75 mg PO BID PRN 90 days home hemoglobin A1C monitor As directed magnesium aspart,citrate,oxide 400 mg PO .QD 10 days metformin 1,000 mg 2 times a day; 90 days metoprolol tartrate 12.5 mg (1/2 x 25 mg) PO BID multivitamin 1 tab PO DAILY mupirocin 2% 1 appl topical BID 15 days tamsulosin 0.4 mg PO DAILY tramadol 50 mg PO Q8H PRN Tobacco use date assessed: 08/04/24 Fall risk assessment: No Falls in past year Last assessed Fall Risk: 10/11/24 Dental Screening Dental Screen Date: 08/04/24 HPI cough, BPH HPI Details 1.5 week congested , no fevers, no sore throat, post nasal drip , no sob,, no ear problem PFSH Medical History Fatty liver Urinary incontinence Essential tremor Asthma Pulmonary nodule, right Hypertension Hypercholesterolemia GERD (gastroesophageal reflux disease) Coronary artery disease Type 2 diabetes mellitus with hyperglycemia Surgical History Hx of rotator cuff surgery Carpal tunnel syndrome Family History Father Pancreatic cancer Mother No problems noted. Maternal Aunt Cancer Brother Cancer Social History Household Members: Spouse Housing: House Alcohol intake: current Alcohol intake frequency: holidays/special occasions only Comment: oncea month 1 drink Patient Tobacco Use Status: Former Tobacco user Tobacco use type: Cigarette Years Smoked: quit 1979 e-Cigarette/Vaping Use: Never Used Second Hand Smoke Exposure: No service: Yes Current occupational status: retired Cognitive needs: No Hearing needs: No Vision needs: Yes Questionnaire PHQ-9 Over the last 2 weeks, how often have you been bothered by any of the following problems? 1. Little interest or pleasure in doing things: not at all 2. Feeling down, depressed, or hopeless: not at all 3. Trouble falling or staying asleep, or sleeping too much: not at all 4. Feeling tired or having little energy: not at all 5. Poor appetite or overeating: not at all 6. Feeling bad about yourself - or that you are a failure or have let yourself or your family down: not at all 7. Trouble concentrating on things, such as reading the newspaper or watching television: not at all 8. Moving or speaking so slowly that other people could have noticed. Or the opposite - being so fidgety or restless that you have been moving around a lot more than usual: not at all 9. Thoughts that you would be better off or of hurting yourself in some way: not at all Total score: 0 Depression Screening Interpretation: Negative Depression Screening Done: Yes Source: Developed by Drs. Scott Oviedo, Mattie Salmon, Kenneth Hammer and colleagues, with an educational hodan from [employer]. Thrive Questionnaire Date Thrive assessed: 08/04/24 I am a: Patient What is your living situation today?: I have a steady place to live Within the past 12 months, did the food you bought not last and you didn't have the money to get more?: I choose not to answer this question Within the past 12 months, did you worry whether your food would run out before you got money to buy more?: I choose not to answer this question Do you have trouble paying for medicines?: No Do you have trouble getting transportation to medical appointments?: No Do you have trouble paying your heating and electricity bill?: No Do you have trouble taking care of your child, family member or friend?: I choose not to answer this question Do you have trouble with day-to-day activities such as bathing, preparing meals, shopping, managing finances, etc.?: I choose not to answer this question Are you currently unemployed and looking for a job?: I choose not to answer this question Are you interested in more education?: I choose not to answer this question Please select the resources that you would like help with: None Currently or been in a relationship where the following occur: I choose not to answer THRIVE Score: 0 AUDIT C Alcohol Use Questionnaire (AUDIT-C) 1. How often do you have a drink containing alcohol?: Monthly or less 2. How many drinks containing alcohol do you have on a typical day when you are drinking?: 1 or 2 3. How often do you have six or more drinks on one occasion?: Never Total Score: 1 JESUS MANUEL-7 AMB Questionnaire JESUS MANUEL-7 Date JESUS MANUEL - 7 assessed: 08/04/24 Feeling nervous, anxious, or on edge: 0 = Not at all Not being able to stop or control worryin = Not at all Worrying too much about different things: 0 = Not at all Trouble relaxin = Not at all Being so restless that it is hard to sit still: 0 = Not at all Becoming easily annoyed or irritable: 0 = Not at all Feeling afraid as if something awful might happen: 0 = Not at all Total JESUS MANUEL-7 score (0-4 normal; 5-9 mild; 10-14 moderate; 15-21 severe): 0 Source: Developed by Drs. Scott Oviedo, Mattie Salmon, Kenneth Hammer and colleagues, with an educational hodan from [employer]. Physical exam (Primary Care) Vital Signs: Last Vital Signs Pulse 71 10/11/24 11:04 BP 118/68 10/11/24 11:04 Pulse Ox 95 10/11/24 11:04 Oxygen Delivery Method Room Air 10/11/24 11:04 BMI result Body Mass Index 28.0 Tobacco/Smoking Status: Tobacco use Status Tobacco use date assessed 08/04/24 10/11/24 11:09 Patient Tobacco Use Status Former Tobacco user 10/11/24 11:09 Tobacco use type Cigarette 10/11/24 11:09 e-Cigarette/Vaping Use Never Used 10/11/24 11:09 PHQ-9: PHQ-9 Score PHQ-9: Total score 0 10/11/24 11:21 Depression Screening Interpretation: Negative Thrive Assessment: Date of Thrive Assessment Date Thrive assessed 08/04/24 10/11/24 11:09 Currently or been in a relationship where the following occur: I choose not to answer Const Other: Impacted cerumen right ear General: alert; No acute distress Eyes Conjunctivae: conjunctivae normal Resp Other: But has rhonchi bilaterally no crackles at the bases. Cardio Rate: regular rate Rhythm: regular rhythm GI Inspection: Yes normal to inspection Extrem General: Yes normal to inspection and No edema Office Procedures Cerumen Removal From which ear canal was the cerumen removed: right Removal: otoscope w/curette and cerumen loop/spoon Notes: patient tolerated procedure well, no complications and ear canal clear 48760-Ymf Wax Removal by Spoon/Curette Coding Level of Care Code Est Pt Level 4 (82489) Complex EM visit Add On G2211 Diagnoses Chronic cough R05.3 Type 2 diabetes mellitus with hyperglycemia, without long-term current use of insulin E11.65 Diabetes mellitus terminal operations supervisor insulin use: without terminal operations supervisor use Coronary artery disease involving [place] coronary artery of [place] heart without angina pectoris I25.10 Associated angina: without angina Coronary Disease-Associated Artery/Lesion type: [place] artery [place] vs. transplanted heart: [place] heart Gastroesophageal reflux disease without esophagitis K21.9 Esophagitis presence: without esophagitis Hypercholesterolemia E78.00 Essential hypertension I10 Hypertension type: essential hypertension Benign prostatic hyperplasia with urinary frequency N40.1; R35.0 Lower urinary tract symptom detail: urinary frequency Lower urinary tract symptom presence: symptoms present Acute bronchitis, unspecified organism J20.9 Bronchitis organism: unspecified organism Impacted cerumen of right ear H61.21 CPT Codes Office Procedure - CPT: 56944-Alf Wax Removal by Spoon/Curette ([id number]) Assessment & Plan Assessment & Plan (1) Chronic cough: Code(s): R05.3 - Chronic cough Category: Medical Plan: Patient has seen Pulmonary and was reassured. As for the pulmonary lesion did not think much of this. (2) Type 2 diabetes mellitus with hyperglycemia: Comment: [facility] ed Code(s): E11.65 - Type 2 diabetes mellitus with hyperglycemia Category: Medical Qualifiers: Diabetes mellitus fci insulin use: without terminal operations supervisor use Qualified Code(s): E11.65 - Type 2 diabetes mellitus with hyperglycemia Plan: Decrease the amount of carbohydrate intake, pasta, bread, rice and potatoes are all sugar and that is aside from all the sweet stuff, remember that fruits are good but they are Sweet also. Hemoglobin A1c goal of less than 7.0. Patient on diet control and metformin (3) Coronary artery disease: Comment: Cath January 2017 moderate L PDA, echo January 2018 65% echo no change April 2019 stress test April 10 1019- Code(s): I25.10 - Atherosclerotic heart disease of [place] coronary artery without angina pectoris Category: Medical Qualifiers: Associated angina: without angina Coronary Disease-Associated Artery/Lesion type: [place] artery [place] vs. transplanted heart: [place] heart Qualified Code(s): I25.10 - Atherosclerotic heart disease of [place] coronary artery without angina pectoris Plan: Control the cholesterol, weight, blood pressure, diabetes patient is taking aspirin 81 mg once a day (4) GERD (gastroesophageal reflux disease): Code(s): K21.9 - Gastro-esophageal reflux disease without esophagitis Category: Medical Qualifiers: Esophagitis presence: without esophagitis Qualified Code(s): K21.9 - Gastro-esophageal reflux disease without esophagitis Plan: Avoid the foods that causes that usually spicy foods, tomato products, juices, coffee, soda and foods that your sensitive to. After eating do not lie down, allow 3-4 hours before in lie down. And keep the head of bed above 30 degrees to avoid the acid from going up. (5) Hypercholesterolemia: Code(s): E78.00 - Pure hypercholesterolemia, unspecified Category: Medical Plan: Avoid fried foods, chicken skin, eggs, butter margarine, pastries and meat. Be it pork or beef they have a lot of cholesterol LDL goal of less than 70 and triglyceride of less than 150 on atorvastatin 10 mg once a day (6) Hypertension: Code(s): I10 - Essential (primary) hypertension Category: Medical Qualifiers: Hypertension type: essential hypertension Qualified Code(s): I10 - Essential (primary) hypertension Plan: Continue with blood pressure medication. Decrease salt intake and exercise patient takes metoprolol 12.5 mg twice a day (7) BPH (benign prostatic hyperplasia): Code(s): N40.0 - Benign prostatic hyperplasia without lower urinary tract symptoms Category: Medical Qualifiers: Lower urinary tract symptom detail: urinary frequency Lower urinary tract symptom presence: symptoms present Qualified Code(s): N40.1 - Benign prostatic hyperplasia with lower urinary tract symptoms; R35.0 - Frequency of micturition Plan: Continue with tamsulosin (8) Acute bronchitis: Code(s): J20.9 - Acute bronchitis, unspecified Category: Medical Qualifiers: Bronchitis organism: unspecified organism Qualified Code(s): J20.9 - Acute bronchitis, unspecified Plan: Well hydrated. For the sore throat can take Cepacol lozenges, discussed about Delsym to help with dry cough so she can rest and advised to increase oral fluids. Patient also can take Tylenol for chills and fever. (9) Impacted cerumen of right ear: Code(s): H61.21 - Impacted cerumen, right ear Category: Medical Plan: Scoop used and tympanic membrane right ear intact Plan History of Present Illness The patient is a 79-year-old male presenting with asthma and chronic cough. The cough has persisted, requiring evaluation by a credit administration specialist who suspects post-infectious hypersensitivity and reactive airway syndrome. The patient's diabetes is managed well with previous blood sugar measurement at 162 and an A1c of 6.1. An abdominal ultrasound confirmed mild hepatic steatosis given a history of right upper quadrant pain. Recent laboratory tests resulted in normal findings for blood count, electrolytes, renal and liver function. Symptoms of allergic rhinitis persist, including congestion and sinus pressure, managed by ysyl-lwt-xcnyeks remedies, affecting the comfort and potentially contributing to his cough. Health Maintenance - Monitoring of blood glucose levels with an A1c goal of <7.0. - LDL goal <70, and triglycerides <150 with atorvastatin 10 mg daily. - Annual check-ups for cholesterol, next due in January with recent LDL at 37. - Abdominal ultrasound conducted demonstrating mild hepatic steatosis. - Routine follow-up for ongoing management of pulmonary conditions and allergies. Social History - Has a cat at home which may influence allergy symptoms. - Uses nvou-fon-jvzgxnk antihistamines and nasal sprays for allergic rhinitis. - Adheres to prescribed diabetes, cholesterol, and hypertension medication regimen. Review of Systems - Respiratory: Reports a chronic cough, occasional productive cough with yellow-green sputum; denies shortness of breath. - Cardiovascular: Denies chest pain or palpitations. - Gastrointestinal: Denies any exacerbation of GERD symptoms currently. - Endocrine: No recent changes in diabetes management symptoms. - Allergic/Immunologic: Reports increased nasal congestion and symptoms of allergic rhinitis. - Ophthalmologic: Denies any recent changes in vision or eye symptoms. Physical Exam - General- Appears well-nourished. - ENT- Nasal congestion, some ear wax accumulation noted; hearing aids present. - Respiratory- Audible wheezing with bronchitis noted. - Cardiovascular- Denies any changes or new issues. Results - Labs: August blood work showed normal blood counts, electrolytes, renal function, and liver function; Hemoglobin A1c 6.1; Blood glucose 162. - Imaging: Abdominal ultrasound indicating mild hepatic steatosis (August 20, 2024). Plan For managing chronic cough and asthma, continue current inhaler use with added antibiotics for suspected sinus involvement. Lnni-cix-snibtgb medications will manage allergy symptoms, supported by nasal rinses. Diabetes remains under control; ongoing A1c monitoring without immediate labs required until closer to March. Hyperlipidemia managed with atorvastatin remains satisfactory with cholesterol goals within specific targets. We will sustain current blood pressure control treatment. Liver health, including hepatic steatosis, will have regular observation. Future appointments scheduled for comprehensive review. Patient was informed and verbally consented to the use of an ambient scribe for clinic note documentation during this visit. Discussion Notes We reviewed the management plan focusing on current medication control, including the use of albuterol for the cough. Discussed the importance of continuous surveillance for diabetes and cholesterol metrics, while reinforcing lifestyle modifications, allergy management techniques, including Cetirizine and nasal rinsing. Addressed patient's sinus-related symptoms with a Z-Nikolay prescription providing additional insight on allergy influence. Clarified the reduced necessity for immediate lab evaluations, identifying their timing as stable based on initial indicators. We set a follow-up period for more holistic assessments around March while ensuring interim strategies align with treatment objectives for observed physiological conditions. Patient Instructions - Use albuterol inhaler as needed for asthma symptoms. - Drink plenty of fluids and use Z-Nikolay as directed for sinus symptoms. - Continue jtlc-bmh-xqedshc allergy medications and nasal saline rinses. - Adhere to prescribed medications for diabetes, cholesterol, and hypertension. - Schedule labs and follow-up appointment before March. - Continue monitoring for any new or worsening symptoms and seek care if needed. Orders: Orders Comprehensive Met. Panel 3 Months E11.65 - Type 2 diabetes mellitus with hyperglycemia B Type Natriuretic Peptide 3 Months E11. - Type 2 diabetes mellitus with hyperglycemia Free T4 (Free Thyroxine) 3 Months E11. - Type 2 diabetes mellitus with hyperglycemia Thyroid Stimulating Hormone 3 Months E11. - Type 2 diabetes mellitus with hyperglycemia Lipid Panel 3 Months E11. - Type 2 diabetes mellitus with hyperglycemia, E78.00 - Pure hypercholesterolemia, unspecified Vitamin B12 and Folate 3 Months E11. - Type 2 diabetes mellitus with hyperglycemia Complete Blood Count Auto Diff 3 Months E11. - Type 2 diabetes mellitus with hyperglycemia Microalbumin, Random (w Creat) 3 Months E11. - Type 2 diabetes mellitus with hyperglycemia Creatinine Urine 3 Months E11. - Type 2 diabetes mellitus with hyperglycemia UA w Microscopic 3 Months E11. - Type 2 diabetes mellitus with hyperglycemia Medications: New azithromycin (Zithromax) For 250 mg dose pack: take 500 mg today (day 1), then 250 mg for 4 days (days 2-5) PO 6 tabs 0RF J20.9 - Acute bronchitis, unspecified
--- OUTSIDE RECORDS SUMMARY | 2024-10-11 12:44 | XMS_ITS | Encounter Summary ---
Author Name [facility] [facility] [place] Address [address] [place] [address] Support Name Relationship Address Phone DAYTONDARRENLATONIA Next [...] Souza's Name Patient's Relationship to Policy Souza [facility] (WNR) MEDICARE ADVANTAGE MCR (WN) Jun 09, 2020 [id number] DAY[place],DO NALD PATIENT [facility] (WNR) MEDICARE ADVANTAGE MCR (R) Jun 09, 2023 [id number] [phone] DAYTON,DO NALD PATIENT [facility] (WNR) MEDICARE ADVANTAGE MCR (WNR) Jun 09, 2020 [id number] DAYTON,DO NALD PATIENT Selected Encounter This section includes the information on record at [place] for the Encounter. Date/Time Encounter Type Encounter Description Reason Provider Source October 28, 2023 10:30 AM HEARING AID REPAIR/MODIFYIN G AUDIOLOGY ICD-10-CM Z46.1 Encounter for fitting and adjustment of hearing aid SUDEEP PEREIRA Encounter Template Text not used by [place] Assessments - Encounter Diagnoses This section includes the primary and secondary diagnoses documented for the Encounter. Date/Time Primary/Secondary Diagnosis Diagnosis Name Provider Source October 28, 2023 10:47 AM PRIMARY Encounter for fitting and adjustment of hearing aid SUDEEP PEREIRA [facility] October 28, 2023 10:47 AM SECONDARY Sensorineural hearing loss, bilateral SUDEEP PEREIRA [facility] Plan of Treatment: Future Appointments (+ 6 months) and Future Tests (+/- 45 days) The Plan of Treatment section includes future care activities for the patient from all [place] treatmentfacilities. This section includes future appointments and future orders which are active, pending or scheduled. Future Appointments This section includes appointments that were scheduled to occur 6 months from the date of the Encounter, up to a maximum of 20 appointments. The data comes from all [place] treatment facilities. Appointment Date/Time Appointment Type Appointme nt Facility Name Apr 06, 2024 10:00 AM AMBULATORY - REHAB MEDICIN E [facility] Encounter Notes: All associated encounter notes This section contains the clinical notes associated to the Encounter. Date/Time Encounter Note(s) Provider Source October 28, 2023 07:56 AM AUDIOLOGY E & M NO TE: [facility] TITLE: AUDIOLOGY CLINIC STANDARD TITLE: AUDIOLOGY E & M NOTE DATE OF NOTE: OCTOBER 28, 2023@07:56 ENTRY DATE: OCTOBER 28, 2023@07:56:25 AUTHOR: SUDEEP PEREIRA EXP COSIGNER: URGENCY: STATUS: COMPLETED Dx CODE: Z46.1-Encounter for Fitting/Adjusting Hearing Aid(s); H90.3- Sensorineural Hearing Loss, Bilateral APPOINTMENT TYPE: Hearing Aid Check HISTORY/BACKGROUND: Burwell was seen for a hearing aid follow-up appointment, unaccompanied. He was fit on 08/19/22 with ERIN Valdes. He scheduled today's appointment noting the right hearing aid has been intermittent. Both hearing aids were cleaned and checked. Microphone covers and wax guards were replaced. Both hearing aids are in good working condition and intermittency could not be replicated in the office today. Right ux developer was replaced and Burwell was advised that if the problem continues [...] Applicable NA /cody/ ZANDER ALEXANDRE, CCC-A STAFF SPLITTER HEAD Signed: 10/28/2023 10:48 SUDEEP PEREIRA [facility]
--- OUTSIDE RECORDS SUMMARY | 2024-10-11 12:44 | XMS_ITS | Patient Health Record ---
[facility] [place] Address [address] [facility] [place] [address] Care Team Providers Care Memory Care Director Name Role Phone MauroStephaniefrancine Primary Care Provider Unavailabl e Black, Lorene Unavailable [phone] Allergies Allergen (clinical drug ingredient) Drug/Non Drug [...] Problem Type II diabetes mellitus without complication (434011947) Type 2 diabetes mellitus without complications (E11.9) Active confirmed Problem 652283030 Hammer toe of right foot (M20.41) Active confirmed Problem 642463556 Hammer toe of left foot (M20.42) Active confirmed Vital Signs Blood pressure diastolic 70 mm Hg 02/23/2024 Height 5 ft 5 in in 02/23/2024 Blood pressure systolic 140 mm Hg 02/23/2024 Weight 163 lbs 02/23/2024 BMI 27.12 kg/m2 02/23/2024 Procedures Procedure Date Ordered Date Performed Result Body Sit e 10694-GSYSVHJ NAIL, 6 OR MORE 02/23/2024 N/A Encounters Encounter Location Date Provider Diagnosis [facility] [address] [address] 02/23/2024 Lorene Black Type 2 diabetes mellitus [...] Treatment Pending Test Test Name Order Date [id number] NAIL, 6 OR MORE 08/12/2011 [id number] NAIL, 6 OR MORE 12/06/2015 [id number] NAIL, 6 OR MORE 12/05/2016 [id number] NAIL, 6 OR MORE 02/12/2018 [id number] NAIL, 6 OR MORE 02/11/2019 64570-IABDHDV NAIL, 6 OR MORE 02/17/2020 [id number] NAIL, 6 OR MORE 02/15/2021 66087-NXFHBNJ NAIL, 6 OR MORE 02/14/2022 82859-UEVRAMM NAIL, 6 OR MORE 02/20/2023 50928-MZDLNBB NAIL, 6 OR MORE 02/23/2024 72655- Debride <25 sq cm 12/19/2016 64501 I&D ABSCESS- SIMPLE,SINGLE 017 Next Appt Details Provider Name:Lorene Gonzalez Conor , 02/21/2025 10:00:00 AM, [address] [facility], [place], [address], Insurance Providers Payer Name Payer Address Payer Phone Subscriber Number Group Number Insured Name Patient Relationship to Insured Coverage Start Date Coverage End Date [facility] 65 Medicare Preferred [address] [place] [address] [id number] Bobby Damon Self - patient is the insured Medical (General) History Medical History History ICD Code back, hip, knee pain Arthritis diabetes High blood pressure Chicken pox Surgical History Surgery Date(Month/Year) tonsillectomy 1950 carpal tunnel surgery 03/2014 right rotator cuff 08/2018 Hospitalization History Reason Date(Month/Year) [facility]- Chest pain 03/2017
--- OUTSIDE RECORDS SUMMARY | 2024-10-11 12:44 | XMS_ITS | Continuity of Care Document ---
Author Name [facility] Organization [facility] Care Team Providers Care Housing Management Officer Name Role Phone [facility] Unavailable Unavailable Problems Combined list of problems [...] [facility] [id number] 07[facility]15 [facility] HEARING AID CHECK BOTH EARS 04176-6.63 [id number] Diagnos is: ICD-10- CM H90.3 Sensori neural hearing loss, TESS Anguiano L 08/06 [facility] HEARING AID REPAIR/MOD IFYING 02358-8.63 [id number] Diagnos is: ICD-10- CM Z46.1 Encount er for fitting and adjustm ent of hearing aid COLLEEN PEREIRA L 10/27 [facility] HEARING AID REPAIR/MOD IFYING [id number] [id number] Diagnos is: ICD-10- CM Z46.1 Encount er for fitting and adjustm ent of hearing aid TESS REVELES L 04/06 [facility] HEARING AID FITTING/CH ECKING [id number] [id number] Diagnos is: ICD-10- CM Z46.1 Encount er for fitting and adjustm ent of hearing aid TESS REVELES L 05/25 [place] [facility]
--- OUTSIDE RECORDS SUMMARY | 2024-10-11 12:44 | XMS_ITS | Encounter Summary ---
Author Name [facility] Address [address] [place] [address] Support Name Relationship Address Phone DAYTONDARRENLATONIA Next [...] Souza's Name Patient's Relationship to Policy Souza [facility] (WNR) MEDICARE ADVANTAGE MCR (WNR) Jun 09, 2020 [id number] [phone] DAYTON,DO NALD PATIENT [facility] (WNR) MEDICARE ADVANTAGE MCR (WNR) Jun 09, 2023 [id number] [phone] DAYTON,DO NALD PATIENT [facility] (WNR) MEDICARE [facility] (WNR) Jun 09, 2020 [id number] [phone] DAYTON,DO NALD PATIENT Selected Encounter This section includes the information on record at [place] for the Encounter. Date/Time Encounter Type Encounter Description Reason Provider Source Apr 06, 2024 10:00 AM HEARING AID REPAIR/MODIFYING AUDIOLOGY ICD-10-CM Z46.1 Encounter for fitting and adjustment of hearing aid LAVERN REVELES Encounter Template Text not used by [place] Assessments - Encounter Diagnoses This section includes the primary and secondary diagnoses documented for the Encounter. Date/Time Primary/Secondary Diagnosis Diagnosis Name Provider Source Apr 06, 2024 10:28 AM PRIMARY Encounter for fitting and adjustment of hearing aid ABDIRIZAKLAVERN DUKES [facility] Apr 06, 2024 10:28 AM SECONDARY Sensorineural hearing loss, bilateral ABDIRIZAKLAVERN [facility] Plan of Treatment: Future Appointments (+ 6 months) and Future Tests (+/- 45 days) The Plan of Treatment section includes future care activities for the patient from all [place] treatmentfacilities. This section includes future appointments and future orders which are active, pending or scheduled. Future Appointments This section includes appointments that were scheduled to occur 6 months from the date of the Encounter, up to a maximum of 20 appointments. The data comes from all [place] treatment facilities. Appointment Date/Time Appointment Type Appointme nt Facility Name May 25, 2024 11:00 AM AMBULATORY - REHAB MEDICIN E [facility] Encounter Notes: All associated encounter notes This section contains the clinical notes associated to the Encounter. Date/Time Encounter Note(s) Provider Source Apr 06, 2024 10:22 AM AUDIOLOGY E & M NO TE: [facility] TITLE: AUDIOLOGY CLINIC STANDARD TITLE: AUDIOLOGY E & M NOTE DATE OF NOTE: APR 06, 2024@10:22 ENTRY DATE: APR 06, 2024@10:22:57 AUTHOR: LAVERN REVELES EXP COSIGNER: URGENCY: STATUS: COMPLETED [place] was seen April 06, 2024 reporting right aid only holding charge for a couple hours and left aid too loud so he rarely wears it. Right aid wax guard plugged but [place] reporting he is hearing battery so this is not cause of charging issue. Both aids checked and cleaned. Receivers and microphone covers replaced. Aerospace Stress Engineer cleaned and both aids show as charging on business strategist. Desiccant replaced and new brush. Aids reprogrammed with overall gain and MPO for left decreased. Both aids show charge 92% right and 100% left. [place] counseled and instructed that if right aid continues to say battery in a few hours or less, he should send for repair-will send him DALC box. If sends right aid for repair and it returns to him still not holding charge, business strategist may be defective and he is told to call us if this is case and we will order him a new business strategist. Patient Education Education provided on the following topics: See above Education provided to: P Response to Education: VU Christine Patient P Family F Significant Other SO Verbalizes Understanding VU Returns Demonstration RD Performs Independently PI Lacks Comprehension LC Refused Education RE Not Applicable NA /cody/ LAVERN Schroeder, CCC-Carlos CHIEF, AUDIOLOGY/FUEL YARD OPERATOR Signed: 04/06/2024 10:28 LAVERN REVELES [facility]
--- OUTSIDE RECORDS SUMMARY | 2024-10-11 12:44 | XMS_ITS | Encounter Summary ---
Author Name [facility] [place] [facility] [place] Address [address] [place] [address] Support Name Relationship Address Phone DAYTONDARRENLATONIA Next [...] Souza's Name Patient's Relationship to Policy Souza [facility] (WNR) MEDICARE ADVANTAGE MCR (WNR) Jun 09, 2020 [id number] [phone] DAYTON,DO NALD PATIENT [facility] (WNR) MEDICARE ADVANTAGE MCR (WNR) Jun 09, 2023 [id number] DAYTON,DO NALD PATIENT [facility] (WNR) MEDICARE ADVANTAGE MCR (WNR) Jun 09, 2020 [id number] [phone] DAYTON,DO NALD PATIENT Selected Encounter This section includes the information on record at [place] for the Encounter. Date/Time Encounter Type Encounter Description Reason Provider Source May 25, 2024 11:00 AM HEARING AID FITTING/CHECKING AUDIOLOGY ICD-10-CM Z46.1 Encounter for fitting and adjustment of hearing aid LAVERN REVELES Encounter Template Text not used by [place] Assessments - Encounter Diagnoses This section includes the primary and secondary diagnoses documented for the Encounter. Date/Time Primary/Secondary Diagnosis Diagnosis Name Provider Source May 25, 2024 11:27 AM PRIMARY Encounter for fitting and adjustment of hearing aid SHYLA MCINTYRE [facility] May 25, 2024 11:27 AM SECONDARY Sensorineural hearing loss, bilateral SHYLA MCINTYRE [facility] Encounter Notes: All associated encounter notes This section contains the clinical notes associated to the Encounter. Date/Time Encounter Note(s) Provider Source May 25, 2024 07:47 AM AUDIOLOGY NOTE: LOCAL TITLE: AUDIOLOGY HEALTH BANDOLEER STRAIGHTENER STAMPER STANDARD TITLE: AUDIOLOGY NOTE DATE OF NOTE: MAY 25, 2024@07:47 ENTRY DATE: MAY 25, 2024@07:47:33 AUTHOR: MONCHO MCINTYRE COSIGNER: LAVERN REVELES URGENCY: STATUS: COMPLETED May 25, 2024 History/Background: [place] was seen for a hearing aid follow up, unaccompanied. The presented today reporting his right hearing aid is hurting his ear. The [place] noted he sent the right aid out for repair and since he received it back he is getting pain in the ear after wearing the hearing aid for a couple hours. Hearing aids: Bita EVOLV AI [facility] Serial Numbers: [id number] Battery size: Rechargeable Date Issued: 08/19/2022 Hearing aid check: The right hearing aid was cleaned and checked. Replaced the 3/60 barrel and receiver aligner with a 4/60 barrel and receiver aligner but that was too long. Modified the right earmold by grinding down. The [place] noted the earmold no longer felt as bulky in the ear. He will try wearing with this modification and contact the clinic if he continues to have discomfort. The asked for assistance re-pairing his hearing aids to his Apple smartphone. The hearing aids were paired successfully. Plan: The will contact the clinic as needed. /cody/ MONCHO MCINTYRE Audiology Health Overhead Worker Signed: 05/25/2024 11:39 /cody/ LAVERN Schroeder CCC-A CHIEF, AUDIOLOGY/COOK MAYONNAISE Cosigned: 05/25/2024 13:21 MONCHO MCINTYRE [facility]
--- OUTSIDE RECORDS SUMMARY | 2024-10-11 12:44 | XMS_ITS ---
Author Organization [facility] [place] Address [address] [facility] [place] [address] Care Team Providers Care Chiropractor Assistant Name Role Phone Mack Wade Primary Care Provider Unavailabl e Black, Lorene Unavailable [phone] Allergies Allergen (clinical drug ingredient) Drug/Non Drug [...] Ordered Date Performed Result Body Sit e 22529-GVEQXGM NAIL, 6 OR MORE 02/23/2024 N/A Encounters Encounter Location Date Provider Diagnosis [facility] [address] [address] 02/23/2024 Lorene Black Type 2 diabetes mellitus [...] INSTRUCTIONS.pdf) Pending Test Test Name Order Date [id number] NAIL, 6 OR MORE 02/23/2024 Next Appt Details Follow Up: 1 Year, Reason: Provider Name:Lorene Perdomo , 02/21/2025 10:00:00 AM, [address] [place], [address], Procedure Notes * Category Sub-Category Detail Notes Debride Nail 6-10 Nail debridement Performance o f this nail treatment by a nonprofessional would put this patients foot and overall health at risk. Therefore, nail debridement was performed extensively to reduce/remove overall nail length, girth, thickness, subungual debris, and necrotic tissue, by manual and/or electrical means through the use of a nail nipper and/or dremel-type cnc grinder, to a more viable healthy nail plate or bed tissue 6-10. Silver nitrate used for any petechial bleeding as necessary. Definitive antifungal treatment options have been reviewed and discussed with the patient. The patient chooses, no pharmaceutical tx - 55355 Progress Notes * Bobby BURRISDOB:[birth year] (78 yo M)Acc No.[id number]:02/23/2024 Progress Note Patient:?Bobby Burris Provider:?Lorene Perdomo DPM :1945???Age:78 Y???Sex:Male Facundo e:02/23/2024 Address:[address] [place], [place] [id number] Pcp:Mack Wade Subjective: * Chief Complaints: * [...] gardening, bike riding. ?Marital status: . 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 * Medications:?TakingProAir HF A 108 (90 Base) [...] - M20.41? Plan: * Treatment: 2.?Tinea unguium?Procedure: 83252-FRPXYRC NAIL, 6 OR MORE 3.?Tinea pedis of [...] use of a nail nipper and/or dremel-type cnc grinder, to a more viable healthy nail plate or bed tissue 6-10. Silver nitrate used for any petechial bleeding as necessary. Definitive antifungal treatment options have been reviewed and discussed with the patient. The patient chooses, no pharmaceutical tx - 26063.? * Procedure Codes:?24961 DEBRI DE NAIL, 6 OR MORE, Modifiers: [...] Perdomo DPM Date:?2023 Generated for Katy carney/Ang/eTransmitting on:?10/11/2024 12:43 PM EDT History and Physical Notes * [...] no fissure(s) present, B/L , , Orthopedic FOOTWEAR EVALUATION: , worn, non-supporti ve DIGITAL DEFORMITIES: Digital contracture , PIPJ, 2-5 [...]
== END 2024-10-11 12:09 | disposition home or self-care (01) ==
LOC: HO.HMCH 11:01
PROVIDERS: PCP Internal Medicine; Visit Provider Internal Medicine
DX: E11.65 Type 2 diabetes mellitus with hyperglycemia (principal); R05.3 Chronic cough; I25.10 Atherosclerotic heart disease of native coronary artery without angina pectoris; K21.9 Gastro-esophageal reflux disease without esophagitis; E78.00 Pure hypercholesterolemia, unspecified; I10 Essential (primary) hypertension; N40.1 Benign prostatic hyperplasia with lower urinary tract symptoms; R35.0 Frequency of micturition; J20.9 Acute bronchitis, unspecified; H61.21 Impacted cerumen, right ear

== ENCOUNTER → 2024-10-11 11:00 | Outpatient (BNVA) | payer MEDICARE, SELFPAY | PROVIDERS: PCP Internal Medicine; Visit Provider Internal Medicine | DX: H61.21 Impacted cerumen, right ear (principal); R05.3 Chronic cough; J20.9 Acute bronchitis, unspecified; E11.65 Type 2 diabetes mellitus with hyperglycemia; I25.10 Atherosclerotic heart disease of native coronary artery without angina pectoris; K21.9 Gastro-esophageal reflux disease without esophagitis; E78.00 Pure hypercholesterolemia, unspecified; I10 Essential (primary) hypertension; N40.1 Benign prostatic hyperplasia with lower urinary tract symptoms; R35.0 Frequency of micturition; Z79.82 Long term (current) use of aspirin; Z79.899 Other long term (current) drug therapy | CPT/HCPCS: 69210; 96127; 99212 ==

== ENCOUNTER 2025-04-14 11:01 | Outpatient (AMB) | payer MEDICARE, SELFPAY ==
[2025-04-14 11:15] VITALS: BP 128/62; PULSE 46; O2SAT 97; BMI 28.8
--- NOTE | 2025-04-14 11:15 | MHC.PC.OV ---
Vital Signs 04/14/25 11:15 Height 5 ft 4 in Weight 168 lb BMI 28.8 BP 128/62 Blood Pressure Location Lt brachial Position Sitting Pulse 46 L Pulse Source Pulse Oximeter Pulse Oximetry (%) 97 Oxygen Delivery Method Room Air Intake Visit Reasons: pe Allergies lisinopril Allergy (Mild, Verified 04/14/25 11:16) cough losartan Adverse Reaction (Intermediate, Verified 04/14/25 11:16) Cough Medication List - Last Reconciled 04/14/25 by Mack Wade MD albuterol sulfate 90 mcg/actuation (Ventolin HFA) 1 inh inhalation QID PRN ascorbic acid (vitamin C) 500 mg PO aspirin (Adult Aspirin Regimen) 81 mg PO DAILY atorvastatin 10 mg PO DAILY blood pressure monitor (Blood Pressure Kit) As directed cetirizine (Zyrtec) 10 mg PO DAILY PRN cholecalciferol (vitamin D3) 25 mcg PO DAILY cyanocobalamin (vitamin B-12) 1,000 mcg PO DAILY diclofenac sodium 75 mg PO BID PRN 90 days home hemoglobin A1C monitor As directed metformin 1,000 mg 2 times a day; 90 days metoprolol tartrate 12.5 mg (1/2 x 25 mg) PO BID multivitamin 1 tab PO DAILY mupirocin 2% 1 appl topical BID 15 days tamsulosin 0.4 mg PO DAILY Tobacco use date assessed: 08/04/24 Fall risk assessment: No Falls in past year Last assessed Fall Risk: 04/14/25 Dental Screening Dental Screen Date: 08/04/24 FOR[facility]LY [facility] Medical History Fatty liver Urinary incontinence Essential tremor Asthma Pulmonary nodule, right Hypertension Hypercholesterolemia GERD (gastroesophageal reflux disease) Coronary artery disease Type 2 diabetes mellitus with hyperglycemia Surgical History Hx of rotator cuff surgery Carpal tunnel syndrome Family History Father Pancreatic cancer Mother No problems noted. Maternal Aunt Cancer Brother Cancer Social History Household Members: Spouse Housing: House Alcohol intake: current Alcohol intake frequency: holidays/special occasions only Comment: oncea month 1 drink Patient Tobacco Use Status: Former Tobacco user Tobacco use type: Cigarette Years Smoked: quit 1979 e-Cigarette/Vaping Use: Never Used Second Hand Smoke Exposure: No service: Yes Current occupational status: retired Cognitive needs: No Hearing needs: No Vision needs: Yes Questionnaire PHQ-9 Over the last 2 weeks, how often have you been bothered by any of the following problems? 1. Little interest or pleasure in doing things: not at all 2. Feeling down, depressed, or hopeless: not at all 3. Trouble falling or staying asleep, or sleeping too much: not at all 4. Feeling tired or having little energy: not at all 5. Poor appetite or overeating: not at all 6. Feeling bad about yourself - or that you are a failure or have let yourself or your family down: not at all 7. Trouble concentrating on things, such as reading the newspaper or watching television: not at all 8. Moving or speaking so slowly that other people could have noticed. Or the opposite - being so fidgety or restless that you have been moving around a lot more than usual: not at all 9. Thoughts that you would be better off or of hurting yourself in some way: not at all Total score: 0 Depression Screening Interpretation: Negative Depression Screening Done: Yes Source: Developed by Drs. Scott Oviedo, Mattie Salmon, Kenneth Hammer and colleagues, with an educational hodan from [employer]. Thrive Questionnaire Date Thrive assessed: 10/11/24 I am a: Patient What is your living situation today?: I have a steady place to live Within the past 12 months, did the food you bought not last and you didn't have the money to get more?: I choose not to answer this question Within the past 12 months, did you worry whether your food would run out before you got money to buy more?: I choose not to answer this question Do you have trouble paying for medicines?: No Do you have trouble getting transportation to medical appointments?: No Do you have trouble paying your heating and electricity bill?: No Do you have trouble taking care of your child, family member or friend?: I choose not to answer this question Do you have trouble with day-to-day activities such as bathing, preparing meals, shopping, managing finances, etc.?: I choose not to answer this question Are you currently unemployed and looking for a job?: I choose not to answer this question Are you interested in more education?: I choose not to answer this question Please select the resources that you would like help with: None Currently or been in a relationship where the following occur: I choose not to answer THRIVE Score: 0 AUDIT C Alcohol Use Questionnaire (AUDIT-C) 1. How often do you have a drink containing alcohol?: Monthly or less 2. How many drinks containing alcohol do you have on a typical day when you are drinking?: 1 or 2 3. How often do you have six or more drinks on one occasion?: Never Total Score: 1 JESUS MANUEL-7 AMB Questionnaire JESUS MANUEL-7 Date JESUS MANUEL - 7 assessed: 04/14/25 Feeling nervous, anxious, or on edge: 0 = Not at all Not being able to stop or control worryin = Not at all Worrying too much about different things: 0 = Not at all Trouble relaxin = Not at all Being so restless that it is hard to sit still: 0 = Not at all Becoming easily annoyed or irritable: 0 = Not at all Feeling afraid as if something awful might happen: 0 = Not at all Total JESUS MANUEL-7 score (0-4 normal; 5-9 mild; 10-14 moderate; 15-21 severe): 0 Source: Developed by Drs. Scott Oviedo, Mattie Salmon, Kenneth Hammer and colleagues, with an educational hodan from [employer]. JESUS MANUEL-7 Assessment Billing JESUS MANUEL-7 Assessment Tool: JESUS MANUEL-7 Assessment 60288 Review of Systems Const Denies poor appetite and Denies weakness Eyes Denies no additional complaints ENT Reports Normal hearing present, Denies dizziness, Denies nasal congestion, Denies tinnitus and Denies sore throat Card Denies chest pain, Denies syncope, Denies rapid heart rate and Denies dyspnea Resp Denies cough and Denies dyspnea GI Denies change in stool character, Reports constipation, Denies diarrhea, Denies nausea and Denies vomiting Denies dysuria and Denies urinary frequency Neuro Reports Normal hearing present, Denies confusion, Denies dizziness, Denies syncope and Denies weakness Psych Denies confusion Physical exam (Primary Care) Vital Signs: Last Vital Signs Pulse 46 L 04/14/25 11:15 BP 128/62 04/14/25 11:15 Pulse Ox 97 04/14/25 11:15 Oxygen Delivery Method Room Air 04/14/25 11:15 BMI result Body Mass Index 28.8 Tobacco/Smoking Status: Tobacco use Status Tobacco use date assessed 08/04/24 04/14/25 11:17 Patient Tobacco Use Status Former Tobacco user 04/14/25 11:17 Tobacco use type Cigarette 04/14/25 11:17 e-Cigarette/Vaping Use Never Used 04/14/25 11:17 PHQ-9: PHQ-9 Score PHQ-9: Total score 0 04/14/25 11:31 Depression Screening Interpretation: Negative Thrive Assessment: Date of Thrive Assessment Date Thrive assessed 10/11/24 04/14/25 11:17 Currently or been in a relationship where the following occur: I choose not to answer Const General: alert and awake; No confusion Orientation/consciousness: No confusion HENMT Other: impacted cerumen bilateral Head: Yes normocephalic Ears: external ears normal Face and sinus: Yes normal facial exam Mouth: moist mucous membranes Throat: Yes tonsils normal Eyes Conjunctivae: conjunctivae normal Pupils: Equal, round and reactive pupils present and Pupil accommodation reflex normal Direct Ophthalmoscopy: normal light reflex Neck Neck: No lymphadenopathy Thyroid: Thyroid normal Chest Chest palpation & inspection: normal inspection of the chest Resp Effort & Inspection: normal respiratory effort and no audible wheezes Auscultation: clear to auscultation bilaterally, no crackles, no wheezes and lung sounds not diminished Cardio Rate: regular rate Rhythm: regular rhythm Peripheral pulses: radial pulses present and dorsalis pedis present GI Palpation (GI): no masses Auscultation: normal bowel sounds and normoactive bowel sounds Rectal Exam - Male: Yes deferred Skin General skin exam: no rashes or lesions noted Rashes: no rashes Neuro General: deep tendon reflexes 2+ bilaterally and No confusion Cranial nerves: Yes Equal, round and reactive pupils present, Yes Midline tongue present, Yes Normal hearing present and Yes Ability to bilaterally elevate shoulders present Cognition (Neuro): normal cognition Gait exam (Neuro): Normal gait present Motor exam (neuro): 5/5 motor strength present throughout Deep tendon reflexes (DTR's): Right brachioradialis reflex intensity grade: 2+, Left brachioradialis reflex intensity grade: 2+, Right patellar reflex intensity grade: 2+ and Left patellar reflex intensity grade: 2+ Extrem General: No edema Office Procedures Cerumen Removal From which ear canal was the cerumen removed: bilateral Removal: irrigation, otoscope w/curette, cerumen loop/spoon and other Notes: patient tolerated procedure well, no complications and ear canal clear [id number] Irrigation/Lavage Results AMB Hemoglobin A1c AMB Hemoglobin A1c 6.1 % Last Edit by Michelle Walker CMA on 04/14/25 11:31 Results Reviewed Results Reviewed: Laboratory Last Values Hgb A1c (Clinic) 6.1 % (4.0-6.0) H 04/14/25 11:17 Coding Level of Care Code Est Pt Prev Care >65y(96345) Diagnoses Annual physical exam Z00.00 Type 2 diabetes mellitus with hyperglycemia, without long-term current use of insulin E11.65 Diabetes mellitus 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 transplanted heart: [place] heart Associated angina: without angina Essential hypertension I10 Hypertension type: essential hypertension Hypercholesterolemia E78.00 Gastroesophageal reflux disease without esophagitis K21.9 Esophagitis presence: without esophagitis Fatty liver K76.0 Benign prostatic hyperplasia with urinary frequency N40.1; R35.0 Lower urinary tract symptom presence: symptoms present Lower urinary tract symptom detail: urinary frequency Impingement syndrome, shoulder, left M75.42 Asthma J45.909 Impacted cerumen of both ears H61.23 CPT Codes Office Procedure - CPT: 32498-Wdz Irrigation/Lavage ([id number]) Additional Codes JESUS MANUEL-7 Assessment Billing - JESUS MANUEL-7 Assessment Tool: JESUS MANUEL-7 Assessment 45353 ([id number]) Assessment & Plan Assessment & Plan (1) Annual physical exam: Code(s): Z00.00 - Encounter for general adult medical examination without abnormal findings Category: Medical Plan: Patient is advised to eat healthy, keep well hydrated, keep active and have adequate sleep. (2) Type 2 diabetes mellitus with hyperglycemia: Comment: [facility] Code(s): E11.65 - Type 2 diabetes mellitus with hyperglycemia Category: Medical Qualifiers: Diabetes mellitus residential insulin use: without ferry terminal supervisor use Qualified Code(s): E11.65 - Type 2 diabetes mellitus with hyperglycemia Plan: Decrease the amount of carbohydrate intake, pasta, bread, rice and potatoes are all sugar and that is aside from all the sweet stuff, remember that fruits are good but they are Sweet also. Hemoglobin A1c goal of less than 7.0. Patient is on metformin only. With DM , need to have Diabetic shoes (3) Coronary artery disease: Comment: Cath January 2017 moderate L PDA, echo January 2018 65% echo no change April 2019 stress test April 10 1019- Code(s): I25.10 - Atherosclerotic heart disease of [place] coronary artery without angina pectoris Category: Medical Qualifiers: Coronary Disease-Associated Artery/Lesion type: [place] artery [place] vs. transplanted heart: [place] heart Associated angina: without angina Qualified Code(s): I25.10 - Atherosclerotic heart disease of [place] coronary artery without angina pectoris Plan: Control the cholesterol, weight, blood pressure, diabetes continue on aspirin 81 mg once a day (4) Hypertension: Code(s): I10 - Essential (primary) hypertension Category: Medical Qualifiers: Hypertension type: essential hypertension Qualified Code(s): I10 - Essential (primary) hypertension Plan: Continue with blood pressure medication. Decrease salt intake and exercise patient is on metoprolol 12.5 mg twice a day (5) Hypercholesterolemia: Code(s): E78.00 - Pure hypercholesterolemia, unspecified Category: Medical Plan: Avoid fried foods, chicken skin, eggs, butter margarine, pastries and meat. Be it pork or beef they have a lot of cholesterol on atorvastatin 10 mg once a day will need blood work for cholesterol (6) GERD (gastroesophageal reflux disease): Code(s): K21.9 - Gastro-esophageal reflux disease without esophagitis Category: Medical Qualifiers: Esophagitis presence: without esophagitis Qualified Code(s): K21.9 - Gastro-esophageal reflux disease without esophagitis Plan: Avoid the foods that causes that usually spicy foods, tomato products, juices, coffee, soda and foods that your sensitive to. After eating do not lie down, allow 3-4 hours before in lie down. And keep the head of bed above 30 degrees to avoid the acid from going up. (7) Fatty liver: Code(s): K76.0 - Fatty (change of) liver, not elsewhere classified Category: Medical Plan: Low-fat diet and exercise (8) BPH (benign prostatic hyperplasia): Code(s): N40.0 - Benign prostatic hyperplasia without lower urinary tract symptoms Category: Medical Qualifiers: Lower urinary tract symptom presence: symptoms present Lower urinary tract symptom detail: urinary frequency Qualified Code(s): N40.1 - Benign prostatic hyperplasia with lower urinary tract symptoms; R35.0 - Frequency of micturition Plan: Continue with tamsulosin (9) Impingement syndrome, shoulder, left: Code(s): M75.42 - Impingement syndrome of left shoulder Category: Medical Plan: Patient has seen ortho and planned surgery. (10) Asthma: Code(s): J45.909 - Unspecified asthma, uncomplicated Category: Medical Plan: Continue with albuterol inhaler as needed (11) Impacted cerumen of both ears: Code(s): H61.23 - Impacted cerumen, bilateral Category: Medical Plan: scoop and irrigation done TM intact Plan History of Present Illness The patient is a 79-year-old overweight male presenting for an annual physical examination and chronic condition management. His comorbidities include diabetes mellitus, coronary artery disease, hypertension, hypercholesterolemia, GERD, hepatic steatosis, BPH, and lumbar spondylosis. Regarding his musculoskeletal issues, he follows with orthopedics for chronic left shoulder pain from a rotator cuff tear, which is managed conservatively and causes pain that can interfere with sleep. He is currently undergoing physical therapy and is contemplating a reverse total shoulder arthroplasty, possibly in June. He has a history of a right rotator cuff surgery approximately 60 years ago. Cardiovascularly, he follows with cardiology and was last seen in November 2024. His last echocardiogram in January 2024 revealed a normal left ventricular size, mild concentric hypertrophy, an ejection fraction of 60-65%, and sclero-degenerative valve disease with normal valvular function. He previously complained of lower extremity pain, and while an ultrasound to check for reflux was performed in November, the results are not yet available. His LDL goal is less than 100, and it was 37 in January. For his diabetes, the patient's most recent hemoglobin A1c is 6.1, which is below the goal of 7.0%. He has regular follow-ups with ophthalmology and was recently given a prescription for diabetic shoes by his line out man. His last colonoscopy was in 2016. He has an albuterol inhaler for asthma but reports using it very seldom. The patient reports gaining weight since his last visit. Health Maintenance The patient is to undergo fasting blood work to recheck his cholesterol levels. He was advised to get the updated COVID-19 and annual influenza vaccinations. Counseling was provided on maintaining a low-fat diet, staying active, and pursuing weight loss. The office will provide necessary documentation to facilitate his acquisition of diabetic shoes. Medical staff will contact the patient's cardiology provider to obtain the results of his recent lower extremity ultrasound. Social History - Tobacco Use: Denies any history of smoking. - Alcohol Use: Reports drinking very rarely, about once a month, and limits intake to one drink per occasion. 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 - Functional Status: Reports occasional feelings of being off-balance but denies falls and does not require an assistive device for ambulation. - Weight Management: Patient reports recent weight gain. Review of Systems - Constitutional: Denies fever. Reports weight gain. - Eyes: Denies any acute visual complaints. - Ears/Nose/Throat: Reports hearing difficulty. Denies problems with swallowing. - Cardiovascular: Denies chest pain, even with exertion, and denies palpitations. Reports a feeling of discomfort when bending over to tie his shoes. Denies syncope. - Respiratory: Denies dyspnea on exertion and paroxysmal nocturnal dyspnea. - Gastrointestinal: Reports good bowel movements. Denies heartburn, nausea, and vomiting. - Genitourinary: Reports nocturia 1-2 times per night. - Musculoskeletal: Reports chronic left shoulder pain that interferes with sleep. - Neurological: Reports occasional, mild unsteadiness but denies falls. Physical Exam General: Cooperative, healthy appearing, comfortable, no acute distress and well developed Orientation: Patient oriented x3 Limitations: No limitations Head: Normal to inspection Ears: Hearing impaired, uses hearing aid in one ear, ear wax present Nose: Normal external nose present Face and sinus: Normal facial exam Eyes: Appearance normal, both eyes and all related structures Neck: Normal visual inspection and Yes full ROM Respiratory: Normal respiratory effort and able to speak in complete sentences. Clear to auscultation bilaterally Cardiovascular: Regular rate and rhythm. Normal S1 and S2 GI: Normal to inspection. Soft to palpation and nontender Skin: No rashes or lesions noted Neuro: Patient oriented x3 Extremities: Swelling noted in lower extremities Results - Labs (August 2024): Blood count was normal without anemia, electrolytes and renal function were good, liver function was fine, and thyroid was normal. Blood sugar at that time was 162. - Labs (Today): Hemoglobin A1c is 6.1%. - Labs (January): LDL cholesterol was 37. - Echocardiogram (January 2024): Showed a normal left ventricular size, mild concentric hypertrophy, ejection fraction of 60-65%, and sclero-degenerative valve disease with normal valvular function. - Colonoscopy (2016): Completed. Plan Patient was informed and verbally consented to the use of an ambient scribe for clinic note documentation during this visit. 1. Diabetes Mellitus Type 2 The patient's diabetes is well-controlled, with a recent hemoglobin A1c of 6.1%, which is below the goal of 7.0%. He will continue taking metformin 1000 mg twice daily. 2. Coronary Artery Disease The patient is clinically stable from a cardiovascular standpoint. He will continue taking aspirin 81 mg once daily for secondary prevention. 3. Hypertension His blood pressure is well-controlled on his current regimen. He will continue taking metoprolol 12.5 mg twice a day. 4. Hypercholesterolemia His LDL goal is less than 100, and his last result was well below this at 37. He will continue taking atorvastatin 10 mg daily, and a repeat lipid panel has been ordered. 5. Gastroesophageal Reflux Disease The plan includes reinforcement of lifestyle measures such as a low-fat diet and exercise. 6. Benign Prostatic Hyperplasia Symptoms are adequately controlled with his current medication. He is to continue taking tamsulosin. 7. Chronic Left Shoulder Pain The patient is under the care of an surgical instrument repair specialist and is planning to undergo surgery. He will continue to use his PRN medications for pain management as needed. 8. Asthma The patient reports very infrequent use of his rescue inhaler. He will continue with his albuterol inhaler for as-needed use. 9. Cerumen Impaction The patient presented with hearing difficulties secondary to bilateral cerumen impaction. An in-office bilateral ear lavage was performed, which successfully removed the impacted cerumen and resolved his symptoms. Discussion Notes I reviewed the patient's recent cardiology note and noted the reassuring findings. I discussed his diabetes control, highlighting that his hemoglobin A1c of 6.1% is excellent. I informed him about the need to recheck his cholesterol and provided him with a lab request for fasting blood work. We discussed his recent weight gain, and I counseled him on the importance of diet and activity for weight management. I reviewed his complete medication list, and he confirmed he has no new issues and does not require any refills at this time. In response to his complaint of hearing difficulty, I performed an in-office bilateral ear lavage to remove a significant amount of impacted cerumen, and the patient reported immediate improvement in his hearing. I strongly recommended that he receive the updated COVID-19 and annual influenza vaccines. I informed the patient that my office would assist with the necessary paperwork for his diabetic shoes and would follow up with his backfiller to obtain the results of his lower extremity ultrasound. Patient Instructions - Please go to the laboratory for blood work. You will need to fast for 8 hours before the test, meaning no food, but you can have small sips of water. - Continue to take all of your current medications as prescribed. You do not need any refills today. - It is recommended that you get your annual flu shot soon. You can get this at most local pharmacies. - We also recommend you get the updated COVID-19 vaccine. - Continue to focus on a healthy diet, stay active, and try to lose some weight. - Our office will help you with the paperwork needed for your diabetic shoes. - We will call your heart doctor's office to get the results of the leg ultrasound test you had done. - Make sure you continue to drink enough water throughout the day. Orders: Orders AMB Hemoglobin A1c Today Z13.9 - Encounter for screening, unspecified
--- OUTSIDE RECORDS SUMMARY | 2025-04-14 13:28 | XMS_ITS | Patient Health Record ---
Author Organization [facility] Address [address] [place] [address] Care Team Providers Care Restaurant Team Member Name Role Phone Mack Wade Primary Care Provider Unavailabl e Black, Lorene Unavailable [phone] Allergies Allergen (clinical drug ingredient) Drug/Non Drug Allergy documented on EMR Reaction Allergy Type Onset Date Status lisinopril Lisinopril Unknown Drug Allergy Activ e Results Component Value Reference Range Notes HEMOGLOBIN A1C (GLYCOHEMOGLO BIN) Reviewed date:02/21/2025 10:01:22 AM Interpretation: Performing Lab: Notes/Report: HEMOGLOBIN A1C % (HH) 6.7 Reason For Referral No Information Medications Medication SIG (Take, Route, Frequency, Duration) Notes Start Date End Date Status Lisinopril 10 MG 1 tablet Orally Once a day Not-Taking Ciclopirox Olamine 0.77 % 1 application to affected area Externally Twice a day; Duration: 30 days 08/12/2011 Not-Taking Ciclopirox Olamine 0.77% external Apply to effected areas twice a day; Duration: 30 days 12/06/2015 Not-Takin g Aspirin 81 MG 1 tablet Orally Once a day Active ProAir HFA 108 (90 Base) MCG/ACT Inhalation; Duration: 17 Act ginger Ketoconazole 2 % 1 application Apply a thin layer of cream externally Twice a day to scaling areas on feet including between the toes; Duration: 30 days 02/21/2025 Active Atorvastatin Calcium Active Extra Depth Orthopedic Shoes (1 Pair) with Customized Heat Molded Multidensity Innersoles (3 Pair) Dx: NIDDM/Polyneuropathy (E11.42), Hammertoe Foot Deformity (M20.41,M20.42), Preulcerative Skin Lesion(s) (L85.1); Duration: 365 days 02/21/2025 Active Tylenol Active Metoprolol & Diet Manage Prod Active metFORMIN HCl Active Aleve 220 MG 1 tablet as needed Orally every 12 hrs Not-Taking Ciclopirox Olamine 0.77 % 1 application Externally Twice a day; Duration: 30 days Active Immunizations Vaccine Route Administration Date Status Comme nts Influenza Unknown 03/24/2017 Administered Influenza Unknown 03/16/2019 Administered Influenza Unknown 02/08/2020 Administered Influenza Unknown 02/07/2022 Administered Influenza Unknown 02/23/2024 Administered COVID-19 Moderna Vaccine Unknown 07/14/2020 Administered Second Dose: 08/08/2020 Social History Tobacco Use: Social History Observation Description Date Details (start date - stop date) Never Smoker NA - NA Alcohol Screen Question Answer Notes Did you have a drink containing alcohol in the p ast year? Yes Points 0 Interpretation Negative Tobacco use other than smoking: Question Answer Notes Are you an other tobacco user? No Tobacco Control (Standard) Question Answer Notes Tobacco use: Nonsmoker Additional Findings: Tobacco non-user Current no nsmoker AUDIT-C (Standard) Question Answer Notes Did you have a drink containing alcohol in the p ast year? No Points 0 Interpretation Negative Problems Problem Type SNOMED Code ICD Code Onset Dates Problem Status W/U Status Risk Notes Problem Acquired hammer toe of right foot (7453883086280437 ) Other hammer toe(s) (acquired), right foot (M20.41) Active confirmed Problem Acquired hammer toe of left foot (6086200962477631 ) Other hammer toe(s) (acquired), left foot (M20.42) Active confirmed Problem Polyneuropathy due to type 2 diabetes mellitus (684014229) Type 2 diabetes mellitus with diabetic polyneuropathy (E11.42) Active confirmed Vital Signs Blood pressure diastolic 80 mm Hg 02/21/2025 Height 5 ft 5 in in 02/21/2025 Blood pressure systolic 140 mm Hg 02/21/2025 Weight 162 lbs 02/21/2025 BMI 26.96 kg/m2 02/21/2025 Procedures Procedure Date Ordered Date Performed Result Body Sit e 62573-[id number] NAIL, 6 OR MORE 02/21/2025 N/A 11140-RXVR SKIN LESIONS, OVER 4 02/21/2025 N/A Encounters Encounter Location Date Provider Diagnosis [facility] [place] [address] [place] [address] 02/21/2025 Lorene Black Tinea unguium B35.1 ; Other hammer toe(s) (acquired), right foot M20.41 ; Tinea pedis of both feet B35.3 ; Other hammer toe(s) (acquired), left foot M20.42 and Type 2 diabetes mellitus with diabetic polyneuropathy E11.42 Assessments Encounter Date Diagnosis (ICD Code) Assessment Notes Treatment Notes Treatment Clinical Notes Section Notes 02/21/2025 Other hammer toe(s) (acquired), right foot (ICD-10 - M20.41) Patient Educated with: DIABETIC FOOT CARE INSTRUCTIONS. pdf (DIABETIC FOOT CARE INSTRUCTIONS. pdf) 02/21/2025 Tinea unguium (ICD-10 - B35.1) 02/21/2025 Tinea pedis of both feet (ICD-10 - B35.3) 02/21/2025 Other hammer toe(s) (acquired), left foot (ICD-10 - M20.42) 02/21/2025 Type 2 diabetes mellitus with diabetic polyneuropathy (ICD-10 - E11.42) 02/21/2025 Other Plan Of Treatment Pending Test Test Name Order Date [id number] NAIL, 6 OR MORE 02/12/2018 [id number] NAIL, 6 OR MORE 02/11/2019 94167-RBLZTXA NAIL, 6 OR MORE 02/17/2020 17432-HHUXXVO NAIL, 6 OR MORE 02/15/2021 28179-UFYRQZY NAIL, 6 OR MORE 02/14/2022 60969-EFJPIPT NAIL, 6 OR MORE 02/20/2023 39129-TIYIXWI NAIL, 6 OR MORE 02/23/2024 99064-VZPTPCB NAIL, 6 OR MORE 08/12/2011 11710-ASGUXXV NAIL, 6 OR MORE 12/06/2015 15698-MFJBWWW NAIL, 6 OR MORE 12/05/2016 10857-NCGDTEV NAIL, 6 OR MORE 02/21/2025 57906- Debride <25 sq cm 12/19/2016 79156 I&D ABSCESS- SIMPLE,SINGLE 017 93549-NAPH SKIN LESIONS, OVER 4 02/22/20 25 Next Appt Details Provider Name:Lorene Perdomo , 02/23/2026 10:00:00 AM, [address] [place], [address], Insurance Providers Payer Name Payer Address Payer Phone Subscriber Number Group Number Insured Name Patient Relationship to Insured Coverage Start Date Coverage End Date [employer] 65 Medicare Preferred [address] [place] [address] [id number] Bobby Damon Self - patient is the insured Medical (General) History Medical History History ICD Code back, hip, knee pain Arthritis diabetes High blood pressure Chicken pox Type 2 diabetes mellitus without complic ations E11.9 Surgical History Surgery Date(Month/Year) tonsillectomy 1950 carpal tunnel surgery 03/2014 right rotator cuff 08/2018 Hospitalization History Reason Date(Month/Year) [facility]- Chest pain 03/2017
--- OUTSIDE RECORDS SUMMARY | 2025-04-14 13:28 | XMS_ITS | Patient Health Record ---
Author Organization [facility] Address [address] [place] [address] Care Team Providers Care Product Communications Manager Name Role Phone Po Mack CHASE Primary Care Provider Scott Reza [phone] Reason For Referral No Information Medications Medication SIG (Take, Route, Frequency, Duration) Notes Start Date End Date Status Aspir-81 Active Aleve 220 MG 1 tablet as needed O rally prn Active NexIUM 24HR 20 MG 1 capsule Orally prn Active ProAir HFA 108 (90 Base) MCG/ACT 2 puffs as needed Inhalation prn Active Atorvastatin Calcium 10 MG 1 tablet Oral ly Once a day Active Lisinopril 10 MG Orally Act ginger Problems Problem Type SNOMED Code ICD Code Onset Dates Problem Status W/U Status Risk Notes Problem Screening for malignant neoplasm of colon (819293653) Encounter for screening for malignant neoplasm of colon (Z12.11) Active confirmed Problem Screening for malignant neoplasm of rectum (849014316) Encounter for screening for malignant neoplasm of rectum (Z12.12) Active confirmed Problem Preprocedural examination (082846385510551) Preprocedural examination (Z01.818) Active confirmed Problem Elevated liver enzymes level (966248166) Elevated liver enzymes (R74.8) Active confirmed Problem Fatty liver (264819524) Fatty liver (K76.0) Active confirmed Problem Hepatitis C antibody test positive (877404460) Positive hepatitis C antibody test (R76.8) Active confirmed Problem Elevated liver enzymes level (333361057) Elevated liver function tests (R94.5) Active confirmed Plan Of Treatment Pending Test Test Name Order Date LIVER PROFILE 08/13/2016 IRON + IBC (FE) 08/13/2016 FERRITIN 08/13/2016 HEPATITIS B, C PROFILE 08/13/2016 Future Test Test Name Order Date COLONOSCOPY 07/03/2016 Insurance Providers Payer Name Payer Address Payer Phone Subscriber Number Group Number Insured Name Patient Relationship to Insured Coverage Start Date Coverage End Date [facility] [address] [facility], [place] [phone] [id number] DELORES BURRIS Self - patient is the insured Medical (General) History Medical History History ICD Code Denies SC,DM,CVA,renal disease HTN Asthma with respiratory infections Occasional GERD Negative screening colonosco py in 2005 and in 2016 except for some sigmoid diverticulosis and internal hemorrhoids Elevated liver enzymes--+ HC V Ab, but neg. viral load--U/S c/w fatty liver; Iron studies OK Neg cardiac cath in 01/2017 Surgical History Surgery Date(Month/Year) Left carpal tunnel release Tonsillectomy
== END 2025-04-14 12:20 | disposition home or self-care (01) ==
LOC: HO.HMCH 11:02
PROVIDERS: PCP Internal Medicine; Visit Provider Internal Medicine
DX: Z00.00 Encounter for general adult medical examination without abnormal findings (principal); E11.65 Type 2 diabetes mellitus with hyperglycemia; I25.10 Atherosclerotic heart disease of native coronary artery without angina pectoris; I10 Essential (primary) hypertension; E78.00 Pure hypercholesterolemia, unspecified; K21.9 Gastro-esophageal reflux disease without esophagitis; K76.0 Fatty (change of) liver, not elsewhere classified; N40.1 Benign prostatic hyperplasia with lower urinary tract symptoms; R35.0 Frequency of micturition; M75.42 Impingement syndrome of left shoulder; J45.909 Unspecified asthma, uncomplicated; H61.23 Impacted cerumen, bilateral

== ENCOUNTER → 2025-04-14 11:01 | Outpatient (BNVA) | payer MEDICARE, SELFPAY | PROVIDERS: PCP Internal Medicine; Visit Provider Internal Medicine | DX: Z00.00 Encounter for general adult medical examination without abnormal findings (principal); E11.65 Type 2 diabetes mellitus with hyperglycemia; I25.10 Atherosclerotic heart disease of native coronary artery without angina pectoris; I10 Essential (primary) hypertension; E78.00 Pure hypercholesterolemia, unspecified; K21.9 Gastro-esophageal reflux disease without esophagitis; K76.0 Fatty (change of) liver, not elsewhere classified; N40.1 Benign prostatic hyperplasia with lower urinary tract symptoms; R35.0 Frequency of micturition; M75.42 Impingement syndrome of left shoulder; J45.909 Unspecified asthma, uncomplicated; H61.23 Impacted cerumen, bilateral | CPT/HCPCS: 69210; 83036; 96127; 99397 ==